=== PATIENT | male | born 1955 | race Caucasian/White ===

== ENCOUNTER 2020-01-22 10:17 | Observation (INO) | payer BC ==
--- OUTSIDE RECORDS SUMMARY | 2020-01-22 10:19 | XMS REPORT | Continuity of Care Document ---
:1955 Author Organization [facility] t Address [address] [place] [address] Care Team Providers Name Role Phone Unavailable Unavailable Unavailable Payers Payer Name Policy Type Policy Number Effective Date Expiration Date S ource Problems This patient has no known problems. Allergies, Adverse Reactions, Alerts Allergy Allergy Status Severity Reaction(s) Onset Inactive Treating Comm ents Source Name Type Date Date Clinician No Known DA Active U 0 [facility] Allergie 00:00: Gustafson s 00 [facility] codeine DA Active [place] 2018-0 [facility] 6-18 Clear 00:00: [facility] 00 [facility] codeine DA Active [place] 2018-0 [facility] [place] No Known DA Active U 0 [facility] [place] [facility] Medications This patient has no known medications. Procedures This patient has no known procedures. Results Test Description Test Time Test Comments Results Result Comments Source - XR KNEE 1 OR 2 V 2018-12-17 Patient Name: RT 10:53:00 ASHLEY RABGAO Unit No: [id number] EXAMS: CPT CODE: [id number] XR KNEE 1 OR 2 [place] [id number] RIGHT KNEE 2 VIEWS PORTABLE COMMENT: The patient is status post joint replacement which is articulating normally. at 1053 Reported and signed by: Colt Otero MD CC: Rohith Ospina MD Technologist: JUAN DOAN (RT.R) Transcribed D/ (9445) AhsanJCL [facility] NAME: ASHLEY RABAGO [address] [facility] PHYS: Rohith Holland MD : 1955 AGE: 63 SEX: M [place], [place] [address] LOC: NeilDSU PHONE #: [phone] EXAM DATE: 12/15/2018 STATUS: [facility] FAX #: [phone] RAD #: D/C DT PAGE 1 Signed Report Patient Name: ASHLEY RABAGO Unit No: [id number] EXAMS: CPT CODE: [id number] XR KNEE 1 OR 2 V RT [id number] <Continued> Orig Print D/T: S: 12/17/2018 (2898) [facility] NAME: ASHLEY RABAGO [address] [facility] PHYS: Rohith Holland MD : 1955 AGE: 63 SEX: M [place] [address] LOC: NeilDSU PHONE #: [phone] EXAM DATE: 12/15/2018 STATUS: [facility] FAX #: [phone] RAD #: D/C DT PAGE 2 Signed Report BASIC METABOLIC PANEL 2018-12-16 06:53:00 Test Item Value Reference Range Interpretation Comme nts SODIUM (test code = NA) 141 mmol/L 136-145 N POTASSIUM (test code = K) 4.6 mmol/L 3.5-5.1 N CHLORIDE (test code = CL) 108.0 mmol/L 98-107 H CARBON DIOXIDE (test code = 22.8 mmol/L 21-32 N CO2) GLUCOSE (test code = GLU) 142 mg/dL 70-110 H BLOOD UREA NITROGEN (test code 18 mg/dL 7-18 N = BUN) GLOMERULAR FILTRATION RATE 92.6 >60 U nit of measure: (test code = GFR) mL/min/1.7 3 [id number] Range:Healthy A dults >90 mL/min/1.73 m2 For Chronic Kidney Disease: Stage II Mi ld Decrease in GFR 60-9 0 Stage III Moderate Decrease in GFR 30-59 Stage IV Severe Decrease in GFR 15-29 Stage V Kidney Failure <15 CREATININE (test code = CREAT) 0.84 mg/dL 0.55-1.30 N CALCIUM (test code = CA) 8.4 mg/dL 8.2-10.1 N HGB [id number] 06:20:00 Test Item Value Reference Range Interpretation Comments HEMOGLOBIN (test code = HGB) 11.5 g/dL 12-16 L HEMATOCRIT (test code = HCT) 35.4 % 37-47 L ISTAT-6+2018-12-15 09:17:00 Test Item Value Reference Range Interpretation Comments ISTAT-HEMOGLOBIN (test code = HBP) 15.0 g/dL 12-16 N ISTAT-HEMATOCRIT (test code = 44 % 38-51 N HCTP) ISTAT-SODIUM (test code = NAP) 142 mmol/L 138-146 N ISTAT-POTASSIUM (test code = KP) 4.4 mmol/L 3.5-4.9 N ISTAT-CHLORIDE (test code = CLP) 108 mmol/L 98-109 N ISTAT-GLUCOSE (test code = GLUP) 99 mg/dL 70-105 N ISTAT-BUN (test code = BUN-P) 14 mg/dL 8-26 N - XR KNEE 1 OR 2 V [id number] 14:14:00 Patient Name: ASHLEY RABAGO Unit No: [id number] EXAMS: CPT CODE: [id number] XR KNEE 1 OR 2 [place] [id number] AP AND LATERAL VIEW OF THE LEFT KNEE COMMENT: P atient is status post total left knee arthroplasty. The prosthesis appears to be in good position. No evidence of periprosthetic fracture. at 1414 Reported and signed by: Nate Bradshaw MD CC: Rohith Ospina MD Technologist: JUAN DOAN (RT.R) Transcribed D/ (1414) [email or web address] [facility] NAME: ASHLEY RABAGO [address] PHYS: Rohith Holland MD : 1955 AGE: 63 SEX: M [place], [place] [address] LOC: YCharleneDSU PHONE #: [phone] EXAM DATE: 09/29/2018 STATUS: [facility] FAX #: [phone] RAD #: D/C DT PAGE 1 Signed Report Patient Name: ASHLEY RABAGO Unit No: [id number] EXAMS: CPT CODE: [id number] XR KNEE 1 [place] 2 [place] [id number] <Continued> Orig Print D/T: S: 09/30/2018 (1417) [facility] NAME: ASHLEY RABAGO [address] [facility] PHYS: Rohith Holland MD : 1955 AGE: 63 SEX: [place] [id number] LOC: Neil[facility]U PHONE #: [phone] EXAM DATE: 09/29/2018 STATUS: [facility] FAX #: [phone] RAD #: D/C DT PAGE 2 Signed ReportHGB [id number] 05:51:00 Test Item Value Reference Range Interpretation Comments HEMOGLOBIN (test code = HGB) 12.0 g/dL 12-16 N HEMATOCRIT (test code = HCT) 36.8 % 37-47 L COMPREHENSIVE METABOLIC [id number] 11:25:00 Test Item Value Reference Range Interpretation Comments SODIUM (test code = 141 mmol/L 136-145 N NA) POTASSIUM (test code = 4.2 mmol/L 3.5-5.1 N K) CHLORIDE (test code = 107.0 mmol/L 98-107 N CL) CARBON DIOXIDE (test 24.1 mmol/L 21-32 N code = CO2) GLUCOSE (test code = 96 mg/dL 70-110 N GLU) BLOOD UREA NITROGEN 18 mg/dL 7-18 N (test code = BUN) GLOMERULAR FILTRATION 76.6 >60 Unit o f measure: RATE (test code = GFR) mL/mi n/1.73 [id number] Range:Healthy Adults >90 mL/min/1.73 m2 For Chronic Kidney Disease: St age II Mild Decrease in GFR 60-90 St age III Moderate Decrease in GFR 30-59 Stage IV Severe Decre ase in GFR 15- 29 Stage V Kidney Failure <15 CREATININE (test code 0.99 mg/dL 0.55-1.30 N = CREAT) TOTAL PROTEIN (test 6.4 g/dL 6.4-8.2 N code = PROT) ALBUMIN (test code = 3.5 g/dL 3.4-5.0 N ALB) GLOBULIN (test code = 2.9 g/dL 2.2-4.2 N GLOB) ALBUMIN/GLOBULIN RATIO 1.2 0.7-2.0 N (test code = A/G) CALCIUM (test code = 8.7 mg/dL 8.2-10.1 N CA) BILIRUBIN TOTAL (test 0.38 mg/dL 0.2-1.00 N code = BILT) SGOT/AST (test code = 15.0 U/L 15-37 N AST) SGPT/ALT (test code = 23.0 U/L 12-78 N Please note new ALT) normal range. ALKALINE PHOSPHATASE 78 U/L 46-116 N TOTAL (test code = ALKP) CBC W/AUTO [id number] 10:44:00 Test Item Value Reference Range Interpretation Comments WHITE BLOOD CELL (test code = WBC) 8.6 K/mm3 5.7-10.5 N RED BLOOD CELL (test code = RBC) 4.41 M/mm3 4.2-5.4 N HEMOGLOBIN (test code = HGB) 14.1 g/dL 12-16 N HEMATOCRIT (test code = HCT) 42.8 % 37-47 N MEAN CELL VOLUME (test code = MCV) 97 fL 80-98 N MEAN CELL HGB (test code = MCH) 32.0 pg 27-34 N MEAN CELL HGB CONCENTRATION (test 32.9 g/dL 30.8-34.1 N code = MCHC) RED CELL DISTRIBUTION WIDTH (test 14.1 % 11-16 N code = RDW) PLT (test code = PLT) 282 K/mm3 130-400 N MEAN PLATELET VOLUME (test code = 11.5 fL 8.9-12.1 N MPV) NEUTROPHIL % (test code = NT%) 67.9 % 45-70 N LYMPHOCYTE % (test code = LY%) 19.4 % 20-40 L MONOCYTE % (test code = MO%) 9.0 % 3-10 N EOSINOPHIL % (test code = EO%) 2.7 % 1-5 N BASOPHIL % (test code = BA%) 0.8 % 0.0-1.1 N NEUTROPHIL # (test code = NT#) 5.83 K/mm3 2.00-7.50 N LYMPHOCYTE # (test code = LY#) 1.67 K/mm3 1.50-4.00 N MONOCYTE # (test code = MO#) 0.77 K/mm3 0.2-0.8 N EOSINOPHIL # (test code = EO#) 0.23 K/mm3 0.04-0.4 N BASOPHIL # (test code = BA#) 0.07 K/mm3 0.02-0.10 N MANUAL DIFF REQUIRED (test code = NO MANUAL DIFF MDIFF) NUCLEATED RED BLOOD CELL (test 0 % 0-0 N code = NRBC)
[2020-01-22 11:33] LABS: Absolute Lymphocytes (CBC) 2.6 K/uL (0.7-4.9); Basophils % 0.3 % (0-1.3); Hematocrit 45.9 % (39.6-49.0); Lymphocytes % 14.1 % (15.3-44.8); MPV 8.5 fL (7.6-11.3); RBC Red Blood Cell Count 4.75 M/uL (4.33-5.43)
[2020-01-22 11:51] LABS: ALT/SGPT 25 U/L (12-78); AST/SGOT 9 U/L (15-37); Albumin 3.1 g/dL (3.4-5.0); Alkaline Phosphatase 78 U/L (45-117); BUN Blood Urea Nitrogen 14 mg/dL (7-18); Bicarbonate 26 mmol/L (21-32); Bilirubin Direct 0.2 mg/dL (0-0.2); Bilirubin Total 0.9 mg/dL (0.2-1.0); Glucose Level 88 mg/dL (74-106); Lipase 487 U/L (73-393); Magnesium 2.3 mg/dL (1.8-2.4); NT PRO-BNP 190 pg/mL (<125); Potassium 3.9 mmol/L (3.5-5.1); Protein, Total 6.9 g/dL (6.4-8.2); Sodium Level 138 mmol/L (136-145); Troponin (Emerg Dept Use Only) < 0.02 ng/mL (0.0-0.045)
[2020-01-22] MEDS ORDERED: FAMOTIDINE 20 MG/2 ML VIAL IV ONE (12:15)
[2020-01-22] MEDS ORDERED: NA CHLORIDE 0.9% 1,000 ML ONE (12:15)
[2020-01-22] MEDS ORDERED: ONDANSETRON 4 MG/2 ML VIAL ONE (12:15)
[2020-01-22] MEDS ORDERED: PIPER/TAZO/NS 3.375gm 3.375 GM/100 ML BAG ONE ×2 (12:16→19:43)
--- NOTE | 2020-01-22 13:50 | RAD REPORT ---
EXAM DESCRIPTION: CT - Chest Abdomen Pelvis W Cont - 01/22/2020 1:33 pm CLINICAL HISTORY: Chest and abdominal pain. Shortness of breath COMPARISON: None TECHNIQUE: Computed axial tomography of the chest, abdomen and pelvis was obtained. A total of 175 c c Isovue-300 was administered intravenously. Due to technical factors the patient had to return a sec ond time for additional imaging. Oral contrast was not given limiting evaluation bowel All CT scans are performed using dose optimization technique as appropriate and may include automated exposure control or mA/KV adjustment according to patient size. FINDINGS: A pulmonary embolus is not seen. A bleb is present within the left lung. No lung consolida tion No mediastinal or hilar lymphadenopathy A pleural effusion is not seen. A pericardial effusion is not noted. Small area sclerosis anterior left fourth rib Gallstones. No bowel bladder wall thickening Mild fatty infiltration liver. Small lipoma third portion duodenum The Spleen, pancreas, adrenals and kidneys appear unremarkable. There is no evidence of diverticulitis. Small bilateral inguinal hernias contain fat. Postsurgical changes involve spine IMPRESSION: No evidence of of a pulmonary embolism Cholelithiasis without evidence cholecystitis Small area sclerosis anterior left fourth rib often is insignificant. A blastic metastasis can also r esult in this appearance should be correlated clinically.
--- NOTE | 2020-01-22 13:51 | RAD REPORT ---
EXAM DESCRIPTION: [facility] 12[facility]11 pm CLINICAL HISTORY: Shortness of breath COMPARISON: none FINDINGS: A small nodular density overlying the fourth anterior left rib represents sclerosis The lungs appear clear of acute infiltrate. The heart is normal size
[2020-01-22 14:30] LABS: Urine Blood NEGATIVE (NEG); Urine Glucose NEGATIVE (NEG); Urine Protein NEGATIVE (NEG); Urine Specific Gravity 1.015 (1.005-1.030)
--- NOTE | 2020-01-22 14:43 | ER ---
Nurse's Notes [facility] Name: Girma Vernon Age: 65 yrs Sex: Male : 1955 Arrival Date: 01/22/2020 Time: 10:21 Bed 20 Private MD: Alfredo Fuchs C Diagnosis: Abdominal tenderness;Elevated white blood cell count;Cholelithiasis Presentation: 01/21 10:27 Chief complaint: Patient states: Abdominal pain and bloating for 3 days. + nausea at ll1 times. No fever. Back surgery for spinal stenosis . Coronavirus screen: Client denies travel out of the [place] in the last 14 days. nausea. Ebola Screen: Patient denies travel to an Ebola-affected area in the 21 days before illness onset. Initial Sepsis Screen: Does the patient meet any 2 criteria? HR > 90 bpm. No. Patient's initial sepsis screen is negative. Does the patient have a suspected source of infection? Yes: Acute abdominal pain. Risk Assessment: Do you want to hurt yourself or someone else? Patient reports no desire to harm self or others. Onset of symptoms was January 20, 2020. 10:27 Method Of Arrival: Ambulatory ll1 10:27 Acuity: [place] 3 ll1 Historical: - Allergies: 10:30 No Known Allergies; ll1 - PSHx: 10:30 back sx; biateral knee pain; ll1 - Immunization history:: Flu vaccine is not up to date. - Social history:: Smoking status: Patient reports the use of cigarette tobacco products, smokes one-half pack cigarettes per day. - Family history:: not pertinent. Screenin:00 Abuse screen: Denies threats or abuse. Denies injuries from another. Nutritional ss screening: No deficits noted. Tuberculosis screening: Never had TB. Fall Risk None identified. Assessment: 11:00 General: Appears in no apparent distress. comfortable, Behavior is calm, cooperative. ss Pain: Complains of pain in left upper quadrant and right upper quadrant and epigastric area Pain currently is 8 out of 10 on a pain scale. Quality of pain is described as aching, Pain began 2-3 days ago. Is intermittent. Neuro: Level of Consciousness is awake, alert, obeys commands, Oriented to person, place, time, situation, Speech is normal. Neuro: Level of Consciousness is awake, alert, obeys commands, Oriented to person, place, time, situation. Cardiovascular: Capillary refill < 3 seconds is brisk in bilateral fingers. Respiratory: Airway is patent Respiratory effort is even, unlabored, Respiratory pattern is regular, symmetrical. Respiratory: Airway is patent Respiratory effort is even, unlabored, Respiratory pattern is regular, symmetrical. GI: Bowel sounds present X 4 quads. Abd is soft and non tender X 4 quads. GI: Reports intermittent nausea x 2- 3days. : No signs and/or symptoms were reported regarding the genitourinary system. Denies burning with urination. EENT: Oral mucosa is moist. Derm: Skin is intact, is healthy with good turgor, Skin is dry, Skin is pink, warm \T\ dry. normal. Musculoskeletal: Circulation, motion, and sensation intact. Range of motion: intact in all extremities, Swelling absent. 12:27 Reassessment: Patient in CT at this time. ss 13:00 Reassessment: Patient appears in no apparent distress at this time. No changes from ss previously documented assessment. Patient and/or family updated on plan of care and expected duration. Pain level reassessed. Patient denies pain at this time. 14:19 Reassessment: Patient appears in no apparent distress at this time. Patient and/or ss family updated on plan of care and expected duration. Pain level reassessed. Patient is alert, oriented x 3, equal unlabored respirations, skin warm/dry/pink. Patient denies pain at this time. Patient states feeling better. Patient states symptoms have improved. 15:14 Reassessment: Patient appears in no apparent distress at this time. Patient aware of ss admission for further evaluation and treatment. Awaiting hospitalist to assess patient and place orders prior to receiving room assignment. 15:26 Reassessment: Report given to Verónica. Vital Signs: 10:27 BP 117 / 87; Pulse 94; Resp 18; Temp 97.9; Pulse Ox 98% ; Weight 124.74 kg; Height 6 ll1 ft. 1 in. (185.42 cm); Pain 8/10; 14:19 BP 136 / 79; Pulse 86; Resp 16; Pulse Ox 100% ; Pain 0/10; ss 10:27 Body Mass Index 36.28 (124.74 kg, 185.42 cm) ll1 ED Course: 10:21 Patient arrived in ED. mr 10:22 Alfredo Fuchs MD is Private Physician. mr 10:29 Triage completed. ll1 10:30 Arm band placed on Patient placed in an exam room, on a stretcher. ll1 10:31 Manjeet Cordero MD is Attending Physician. angeline 11:15 Inserted saline lock: 20 gauge in right antecubital area, using aseptic technique. ll1 Blood collected. 12:00 Estela Casas, VANESSA is Primary Nurse. ss 12:00 Patient has correct armband on for positive identification. Bed in low position. Call ss light in reach. 12:11 XRAY Chest (1 view) In Process Unspecified. EDMS 12:29 CT Chest, Abdomen, Pelvis - W/Contrast: ro pe In Process Unspecified. EDMS 14:42 Alfredo Fuchs MD is Hospitalizing Provider. angeline 14:58 Ultrasound completed. Patient tolerated well. Notified ED Physician pasha. sg3 15:15 No provider procedures requiring assistance completed. Patient admitted, IV remains in ss place. Administered Medications: 12:11 Drug: Pepcid 20 mg Route: IVP; Site: right antecubital; hb 12:47 Follow up: Response: No adverse reaction; Marked relief of symptoms; Pain is decreased ss 12:11 Drug: Zofran (Ondansetron) 4 mg Route: IVP; Site: right antecubital; hb 12:46 Follow up: Response: No adverse reaction ss 12:46 Drug: Zosyn 3.375 grams Route: IVPB; Infused Over: 60 mins; Site: right antecubital; ss 13:45 Follow up: IV Status: Completed infusion ss 12:47 Drug: NS 0.9% 500 ml Route: IV; Rate: bolus; Site: right antecubital; ss 13:40 Follow up: IV Status: Completed infusion; IV Intake: 500ml ss 13:54 Drug: NS 0.9% 1000 ml Route: IV; Rate: 125 ml/hr; Site: right antecubital; ss 15:48 Follow up: IV Status: Infusion continued upon admission ss Intake: 13:40 IV: 500ml; Total: 500ml. ss Outcome: 14:43 Decision to Hospitalize by Provider. angeline 15:15 Condition: improved ss 15:15 Instructed on the need for admit. 15:47 Admitted to Med/surg accompanied by tech, family with patient, via wheelchair, with chart, Report called to VANESSA Sanches 15:48 Patient left the ED. Signatures: Dispatcher [employer] EDManjeet Montes MD MD cha Rivera, Estela Eden, RN RN Jennifer William RN RN Alysa Lee 3 Ananya Lim RN RN ll1
--- NOTE | 2020-01-22 14:43 | EDPHYS ---
Physician Documentation [facility] Name: Girma Vernon Age: 65 yrs Sex: Male : 1955 Arrival Date: 01/22/2020 Time: 10:21 Bed 20 Private MD: Alfredo Fuchs C ED Physician Manjeet Cordero HPI: 01/21 11:01 This 65 yrs old Male presents to ER via Ambulatory with complaints of angeline Abdominal Pain, Abdominal Swelling. 11:01 The patient has shortness of breath with light activity. Onset: The symptoms/episode angeline began/occurred 3 day(s) ago. Duration: The symptoms are continuous, and are steadily getting worse. The patient's shortness of breath has no apparent modifying factors. The patient presents with abdominal pain in the upper abdomen, in the lower abdomen, abdominal distention in the upper abdomen, in the lower abdomen. Onset: The symptoms/episode began/occurred 3 day(s) ago. Associated signs and symptoms: The patient has no apparent associated signs or symptoms. Severity of symptoms: At their worst the symptoms were moderate in the emergency department the symptoms are unchanged. The symptoms do not radiate. Associated signs and symptoms: none. Historical: - Allergies: 10:30 No Known Allergies; ll1 - PSHx: 10:30 back sx; biateral knee pain; ll1 - Immunization history:: Flu vaccine is not up to date. - Social history:: Smoking status: Patient reports the use of cigarette tobacco products, smokes one-half pack cigarettes per day. - Family history:: not pertinent. ROS: 11:01 Constitutional: Negative for fever, chills, and weight loss, Eyes: Negative for injury, angeline pain, redness, and discharge, ENT: Negative for injury, pain, and discharge, Neck: Negative for injury, pain, and swelling, Cardiovascular: Negative for chest pain, palpitations, and edema, Respiratory: Negative for shortness of breath, cough, wheezing, and pleuritic chest pain, Back: Negative for injury and pain, : Negative for injury, bleeding, discharge, and swelling, MS/Extremity: Negative for injury and deformity, Skin: Negative for injury, rash, and discoloration, Neuro: Negative for headache, weakness, numbness, tingling, and seizure, Psych: Negative for depression, anxiety, suicide ideation, homicidal ideation, and hallucinations, Allergy/Immunology: Negative for hives, rash, and allergies, Endocrine: Negative for neck swelling, polydipsia, polyuria, polyphagia, and marked weight changes, Hematologic/Lymphatic: Negative for swollen nodes, abnormal bleeding, and unusual bruising. 11: Abdomen/GI: Positive for abdominal pain, abdominal distension. 11: MS/extremity: Negative for pain. Exam: 11: Constitutional: This is a well developed, well nourished patient who is awake, alert, angeline and in no acute distress. Head/Face: Normocephalic, atraumatic. Eyes: Pupils equal round and reactive to light, extra-ocular motions intact. Lids and lashes normal. Conjunctiva and sclera are non-icteric and not injected. Cornea within normal limits. Periorbital areas with no swelling, redness, or edema. ENT: Nares patent. No nasal discharge, no septal abnormalities noted. Tympanic membranes are normal and external auditory canals are clear. Oropharynx with no redness, swelling, or masses, exudates, or evidence of obstruction, uvula midline. Mucous membranes moist. Neck: Trachea midline, no thyromegaly or masses palpated, and no cervical lymphadenopathy. Supple, full range of motion without nuchal rigidity, or vertebral point tenderness. No Meningismus. Chest/axilla: Normal chest wall appearance and motion. Nontender with no deformity. No lesions are appreciated. Cardiovascular: Regular rate and rhythm with a normal S1 and S2. No gallops, murmurs, or rubs. Normal PMI, no JVD. No pulse deficits. Respiratory: Lungs have equal breath sounds bilaterally, clear to auscultation and percussion. No rales, rhonchi or wheezes noted. No increased work of breathing, no retractions or nasal flaring. Back: No spinal tenderness. No costovertebral tenderness. Full range of motion. Male : Normal genitalia with no discharge or lesions. Skin: Warm, dry with normal turgor. Normal color with no rashes, no lesions, and no evidence of cellulitis. MS/ Extremity: Pulses equal, no cyanosis. Neurovascular intact. Full, normal range of motion. Neuro: Awake and alert, GCS 15, oriented to person, place, time, and situation. Cranial nerves II-XII grossly intact. Motor strength 5/5 in all extremities. Sensory grossly intact. Cerebellar exam normal. Normal gait. Psych: Awake, alert, with orientation to person, place and time. Behavior, mood, and affect are within normal limits. 11:01 Abdomen/GI: Inspection: distension, Bowel sounds: normal, Palpation: mild abdominal tenderness, in the epigastric area, right upper quadrant and left upper quadrant, Liver: no appreciated palpable abnormalities, Hernia: not appreciated. Vital Signs: 10:27 BP 117 / 87; Pulse 94; Resp 18; Temp 97.9; Pulse Ox 98% ; Weight 124.74 kg; Height 6 ll1 ft. 1 in. (185.42 cm); Pain 8/10; 14:19 BP 136 / 79; Pulse 86; Resp 16; Pulse Ox 100% ; Pain 0/10; ss 10:27 Body Mass Index 36.28 (124.74 kg, 185.42 cm) ll1 MDM: 10:31 Patient medically screened. angeline 11:05 Differential diagnosis: Bronchitis pneumonia, Pulmonary Embolism appendicitis, bowel angeline obstruction, cholecystitis, Cholelithiasis, diverticulitis, gastroesophageal reflux disease, Hepatitis, Mesenteric ischemia or infarction, non-specific abd pain, pancreatitis, Peptic Ulcer Disease. Antibiotic administration: Not indicated. The patient's Wells Deep Vein Thrombosis Score was calculated as follows: Total Score: 0-2 Pts- Low Risk. The patient's Wells Deep Vein Thrombosis Score was calculated as follows: Imm/Surg in last 4 wks (1.5 Pts) Total Score:. The patient's pulmonary embolism risk score was calculated as follows: patient has experienced immobilization or surgery in the last four weeks (1.5 Pts) Total Score: 0-2 points. This patient was found to be at low risk for a pulmonary embolism by using the Well's assessment criteria. Immunization status: Influenza vaccine: Data reviewed: vital signs, nurses notes, lab test result(s), EKG, radiologic studies, CT scan, plain films. Data interpreted: quality assurance monitor final: rate is 94 beats/min, rhythm is regular, Pulse oximetry: on room air is 98 %. Test interpretation: by ED physician or midlevel provider: ECG, plain radiologic studies. 01/21 11: Order name: Basic Metabolic Panel; Complete Time: 12:18 [facility] 01/21 11: Order name: CBC with Diff; Complete Time: 11:38 angeline 01/21 11:01 Order name: LFT's; Complete Time: 12:18 [facility] 01/21 11:01 Order name: Magnesium; Complete Time: 12:18 [facility] 01/21 11:01 Order name: NT PRO-BNP; Complete Time: 12:18 [facility] 01/21 11:01 Order name: Troponin (emerg Dept Use Only); Complete Time: 12:18 [facility] 01/21 11:01 Order name: XRAY Chest (1 view); Complete Time: 14:10 [facility] 01/21 11:01 Order name: CT Chest, Abdomen, Pelvis - W/Contrast: ro pe; Complete Time: 14:10 [facility] 01/21 11:01 Order name: Lipase; Complete Time: 12:18 [facility] 01/21 14:11 Order name: Urine Dipstick--Ancillary (enter results) 01/21 14:12 Order name: US Abdomen Limited [facility] 01/21 11:01 Order name: EKG; Complete Time: 11:02 [facility] 01/21 11:01 Order name: Cardiac monitoring; Complete Time: 12:35 [facility] 01/21 11:01 Order name: EKG - Nurse/Tech; Complete Time: 12:48 [facility] 01/21 11:01 Order name: IV Saline Lock; Complete Time: 12:35 [facility] 01/21 11:01 Order name: Labs collected and sent; Complete Time: 12:35 [facility] 01/21 11:01 Order name: O2 Per Protocol; Complete Time: 12:35 [facility] 01/21 11:01 Order name: O2 Sat Monitoring; Complete Time: 12:35 [facility] 01/21 11:01 Order name: Urine Dipstick-Ancillary (obtain specimen); Complete Time: 13:54 [facility] 01/21 14:49 Order name: CONS Physician Consult EDMS Administered Medications: 12:11 Drug: Pepcid 20 mg Route: IVP; Site: right antecubital; hb 12:47 Follow up: Response: No adverse reaction; Marked relief of symptoms; Pain is decreased ss 12:11 Drug: Zofran (Ondansetron) 4 mg Route: IVP; Site: right antecubital; hb 12:46 Follow up: Response: No adverse reaction ss 12:46 Drug: Zosyn 3.375 grams Route: IVPB; Infused Over: 60 mins; Site: right antecubital; ss 13:45 Follow up: IV Status: Completed infusion ss 12:47 Drug: NS 0.9% 500 ml Route: IV; Rate: bolus; Site: right antecubital; ss 13:40 Follow up: IV Status: Completed infusion; IV Intake: 500ml ss 13:54 Drug: NS 0.9% 1000 ml Route: IV; Rate: 125 ml/hr; Site: right antecubital; ss 15:48 Follow up: IV Status: Infusion continued upon admission ss Disposition: 01/22/20 14:43 Hospitalization ordered by Alfredo Fuchs for Observation. Preliminary diagnosis are Abdominal tenderness, Elevated white blood cell count, Cholelithiasis. - Bed requested for Telemetry/MedSurg (observation). - Status is Observation. ss - Condition is Stable. - Problem is new. - Symptoms have improved. Signatures: Dispatcher [employer] EDMS Manjeet Cordero MD MD cha Smirch, Shelby, RN RN Jennifer Willis RN RN Gayathri Wise Lynsay RN RN ll1 Corrections: (The following items were deleted from the chart) 15: 14:43 Hospitalization Ordered by A Shila ESPINOZA for Observation. Preliminary diagnosis is eb Abdominal tenderness; Elevated white blood cell count; Cholelithiasis. Bed requested for Telemetry/MedSurg (observation). Status is Observation. Condition is Stable. Problem is new. Symptoms have improved. [facility] 15:10 15:09 01/22/2020 14:43 Hospitalization Ordered by A Shila ESPINOZA for Observation. eb Preliminary diagnosis is Abdominal tenderness; Elevated white blood cell count; Cholelithiasis. Bed requested for Telemetry/MedSurg (observation). Status is Observation. Condition is Stable. Problem is new. Symptoms have improved. eb 15:48 15:10 01/22/2020 14:43 Hospitalization Ordered by A Shila ESPINOZA for Observation. ss Preliminary diagnosis is Abdominal tenderness; Elevated white blood cell count; Cholelithiasis. Bed requested for Telemetry/MedSurg (observation). Status is Observation. Condition is Stable. Problem is new. Symptoms have improved. eb
[2020-01-22] MEDS ORDERED: ACETAMINOPHEN 325 MG TABLET PO PRN (15:57)
[2020-01-22] MEDS ORDERED: MORPHINE 4 MG/ML SYR IV PRN (15:57)
[2020-01-22] MEDS ORDERED: ONDANSETRON 4 MG/2 ML VIAL IV PRN (15:57)
[2020-01-22 15:58] VITALS: BMI 36.3
--- NOTE | 2020-01-22 16:00 | RAD REPORT ---
EXAM DESCRIPTION: US - Abdomen Exam Limited - 01/22/2020 2:55 pm CLINICAL HISTORY: Abdominal pain. COMPARISON: None. FINDINGS: Cholelithiasis. The gallbladder wall is not thickened. The biliary tree is normal caliber. IMPRESSION: Cholelithiasis without evidence cholecystitis
[2020-01-22] MEDS: D5 0.45 NS 1,000 ML IV SCH ×2 (16:19→21:44)
[2020-01-22] MEDS ORDERED: PIPER/TAZO/NS 3.375gm 3.375 GM/100 ML BAG IVPB SCH (18:00)
[2020-01-22] MEDS: PIPER/TAZO/NS 3.375gm 3.375 GM/100 ML BAG IV SCH (19:45)
[2020-01-22] MEDS: FAMOTIDINE 20 MG/2 ML VIAL IV SCH (19:45)
[2020-01-23] MEDS ORDERED: PIPER/TAZO/NS 3.375gm 3.375 GM/100 ML BAG ONE (03:05)
[2020-01-23] MEDS: D5 0.45 NS 1,000 ML IV SCH (04:53)
[2020-01-23] MEDS: PIPER/TAZO/NS 3.375gm 3.375 GM/100 ML BAG IV SCH (04:53)
[2020-01-23 05:56] LABS: Absolute Lymphocytes (CBC) 2.8 K/uL (0.7-4.9); Basophils % 0.5 % (0-1.3); Hematocrit 43.7 % (39.6-49.0); Lymphocytes % 16.6 % (15.3-44.8); MPV 8.5 fL (7.6-11.3)
[2020-01-23 06:20] LABS: Albumin 2.5 g/dL (3.4-5.0); Bilirubin Direct 0.2 mg/dL (0-0.2); Bilirubin Total 0.9 mg/dL (0.2-1.0); Potassium 4.5 mmol/L (3.5-5.1); Protein, Total 6.6 g/dL (6.4-8.2)
[2020-01-23] MEDS: FAMOTIDINE 20 MG/2 ML VIAL IV SCH (07:48)
[2020-01-23 07:54] VITALS: O2SAT 94
[2020-01-23 09:42] VITALS: BP 130/79; TEMP 96.9
--- NOTE | 2020-01-23 09:55 | P.PN ---
Subjective Date of Service: 01/23/20 Subjective: Improving (patient tolerating diet, ambulatory, pain free) Physical Examination - Vital Signs Temperature: 96.9 F Blood Pressure: 130/79 Pulse: 60 Respirations: 16 Pulse Ox (%): 96 - Physical Exam General: Alert, In no apparent distress, Cooperative Respiratory: Clear to auscultation bilaterally Gastrointestinal: Soft and benign, Non-distended, No ascites, No tenderness, No masses, No rebound, No guarding - Studies Laboratory Data (last 24 hrs) 01/22/20 11:20: WBC 18.1 H, Hgb 15.3, Hct 45.9, Plt Count 293 01/22/20 11:20: Sodium 138, Potassium 3.9, BUN 14, Creatinine 0.83, Glucose 88, Magnesium 2.3, Total Bilirubin 0.9, AST 9 L, ALT 25, Alkaline Phosphatase 78, Lipase 487 H Assessment And Plan - Current Problems (Diagnosis) (1) Drug-induced pancreatitis Current Visit: Yes Status: Acute Plan: Stop steroids if possible - hydration - plan per Dr. Fuchs - no need for surgical intervention
[2020-01-23] MEDS ORDERED: INFLUENZA VACCINE (for 3y+) 0.5 ML DOSE IMVAC ONE (10:00)
--- NOTE | 2020-01-23 11:29 | CON ---
Date of Consultation: 01/21/2020 Brief History Of Present Illness: The patient is a 65-year-old male, who comes to the hospital with complaints of abdominal pain, beginning approximately 3 days ago. He had recently had back surgery t his month and had been told by his back surgeon to increase the dose of steroids. He had increased h is dose of steroids significantly, but cannot recall the exact dose, but took a significantly higher dose. Shortly thereafter, he developed abdominal pain. He was brought to the ER and had signs and s ymptoms of midepigastric with localized abdominal pain without radiation. No nausea. No vomiting. No change in bowel or bladder habits. No sick contacts. No recent travel. No new food exposures. Past Medical History: Significant for back surgery, bilateral knee pain. Social History: He denies alcohol. He smokes half pack cigarettes per day. Denies recreational efren g use. His pain is somewhat better after admission. He has never had similar episodes before or in the past . Medications: He cannot recall specific medications. Allergies: NO KNOWN DRUG ALLERGIES. Review of Systems: Ten-point review of systems other than HPI, denies. Physical Examination: Vital Signs: At the time of my examination; his vital signs were a heart rate of 63, blood pressure 129/75, SpO2 97% on room air, temperature 97.9, respiratory rate 18. General: He is awake, alert, oriented. Psychiatric: Appropriate, conversive. HEENT: Normocephalic. Sclerae icteric. Mucous membranes are moist. Oropharynx is clear. Neck: Supple. No JVD. Chest: Normal expansion and excursion. Cardiovascular: Regular rate and rhythm. Pulmonary: Clear to auscultation bilaterally. Abdomen: Soft with mild midepigastric tenderness to palpation. Negative Kelley sign. No psoas sign . No rebound. No guarding. No focal peritonitis Pelvis: Stable. Extremities: No clubbing, cyanosis, or edema. Skin: Warm and dry. Laboratory Data: Reveals a white blood cell count of 18.1, hemoglobin is 15.3, hematocrit of 45.9, p latelet count was 293, neutrophils are 75%. His sodium is 138, potassium 3.9, chloride 106, carbon d ioxide is 26, BUN 14, creatinine 0.8. His glucose was 88. His total bilirubin 0.9, direct component 0.2, AST 9, ALT 25, alkaline phosphatase 78. His lipase was 487. His UA essentially negative. He had imaging performed, which included a CT scan of the abdomen pelvis, officially read as no evidence of pulmonary embolism, cholelithiasis without evidence of cholecystitis. Smaller sclerosis of the a nterior fourth rib is often insignificant. Blastic metastasis can also occurring, this apparent shou ld be clinically correlated. Assessment And Plan: This is a 65-year-old male, who comes in with signs and symptoms of pancreatiti s, likely drug-induced pancreatitis due to the steroid usage and increasing dose of steroids and a mi ld case of acute pancreatitis, now significantly improved symptomatically. 1.IV fluids. 2.N.p.o. status. 3.Serial abdominal exams. 4.Continue medical management per Dr. Fuchs. Thank you for this interesting consult. SISSY Voice ID: [id number] Report ID: [id number]
--- NOTE | 2020-01-23 12:37 | SS ---
Date of Discharge: 01/23/2020 Chief Complaint: Abdominal pain. History Of Present Illness: This is a 65-year-old very pleasant male patient who had lower back surgery done by Dr. Alex about 2 weeks ago. After his surgery, he was prescribed some narcotic pain medication that he did not tolerate that well, so Dr. Alex stopped that and he prescribed him some corticosteroid medication that the patient reports that he finished taking it prior to this hospital admission. He came into hospital emergency room with complaints of some vague abdominal discomfort in the periumbilical area starting of this week. He had some nausea, but no vomiting. No fever. No chills. No constipation or diarrhea. No blood in stool. No urinary complaints. After he came into emergency room, his workup was unremarkable except presence of gallstone with no evidence of cholecystitis. The patient was admitted to the hospital for further evaluation and management of this problem. His white count was elevated. This morning when I saw him, he was feeling better. Allergies: NO KNOWN ALLERGIES. Medications: He does not take any medications at home. Review of Systems: GI: As mentioned above. All other systems reviewed and negative. Past Medical History: Significant for hyperlipidemia and lumbar spinal stenosis and lumbar spondylosis. Past Surgical History: Tonsillectomy, bilateral knee surgery, shoulder surgery, and recent lower back surgery. Family History: Father , had colon cancer and prostate cancer. Mother , had congestive heart failure. Brother with hypertension, diabetes, and coronary artery disease. Social History: Positive for smoking. Use of alcohol negative. Physical Examination: VITAL SIGNS: Height 6 feet 1 inch, weight 275 pounds, temperature 97.1, pulse 61, respiratory rate 18, blood pressure 131/80, oxygen saturation 96%. General: Awake, alert, oriented, not in distress. HEENT: Head atraumatic, normocephalic. Conjunctivae nonerythematous. Sclerae white. Mouth, no thrush or edema noted. Ears/Nose, no mass, lesion, discharge noted. Neck: Supple. No JVD, lymph nodes, bruit, thyromegaly noted. Lungs: Bilateral good equal air entry. Clear to auscultation. No rhonchi. No rales. Heart: Normal heart sounds, no murmur or gallop. Abdomen: Soft, bowel sounds normal. No guarding, rigidity, tenderness, mass, hepatosplenomegaly, distention, or bruit noted. Extremities: No leg edema. No calf tenderness. Skin: No rash, ulcer, cellulitis. Lymphatics: No lymph node enlargement in neck, supraclavicular, infraclavicular region. Neuro: No focal neurological deficit. Chest: Unremarkable. External Genitalia: Deferred. Rectal: Deferred. Laboratory Data: Yesterday; white count 18.1, hemoglobin 15.3, and platelets 293. This morning; white count 16.7, hemoglobin 14.6, platelets 261. Sodium 138, potassium 3.9, chloride 106, bicarb 26, BUN 14, creatinine 0.83, glucose 88. Liver function tests unremarkable. Troponin less than 0.02. Lipase yesterday was 487. This morning, lipase is 480. Sodium 138, potassium 4.5, chloride 108, bicarb 25, BUN 10, creatinine 0.91, glucose 93. Liver function tests unremarkable. Urinalysis is negative. Chest x-ray; no infiltrate, small nodular density overlying the fourth anterior left rib and this represents sclerosis. No prior chest x-ray available for comparison. CAT scan of the chest, abdomen, and pelvis done in the emergency room yesterday. CAT scan of the chest was negative for pulmonary embolism. A bleb is seen in the left lung. No lung consolidation. No other acute abnormality noted in the chest. Small area of sclerosis in the left 4th rib, presence of gallstone, mild fatty infiltration of liver, small duodenum. Spleen, pancreas, adrenals, and kidneys appear unremarkable. No evidence of diverticulitis. Bilateral small inguinal hernia containing fat. Limited right upper quadrant abdominal ultrasound shows evidence of gallstones without any evidence of cholecystitis. Hospital Course: After the patient was evaluated in the ER, he was admitted to the hospital and he was on empiric antibiotics Zosyn in the emergency room for this elevated white count. After I talked to patient this morning, I learned about him taking corticosteroid medication within last 2 weeks after his lower back surgery and that could be very well the reason why his white count is elevated and I did explain all those details to him today. Clinically, there is no evidence of any infection anywhere, so the patient does not need to continue any antibiotics. His mildly elevated lipase level that we have seen could be due to very minimal pancreatitis, but once again today on clinical exam, there is absolutely no evidence of any tenderness and he is medically stable for discharge. We will start him on diet and he was advised to avoid fatty, greasy, spicy food. There is a possibility that he may have some component of gastritis also, so we will go ahead and try some proton pump inhibitor therapy like pantoprazole and I have advised him how to take that medication. I will see him in the office for followup sometime next week and we did talk about outpatient referral to utility locate technician for endoscopy, which is EGD and colonoscopy as he never had those testing done before. Plan of treatment was discussed with him. Final Diagnoses: 1. Acute pancreatitis, mild. 2. Acute gastritis. 3. Hyperlipidemia. 4. Lumbar spondylosis. Discharge Medication And Instructions: Pantoprazole 40 mg 1 tablet by mouth p.o. daily, take it 30 minutes before breakfast. Follow up at my office during week of, 01/31/2020 and the patient to call office for appointment. ROGER/JASON Voice ID: [id number] Report ID: [id number] ISABEL
--- NOTE | 2020-01-24 07:47 | EKG ---
Test Date: 2020-01-22 Test Time: 12:43:19 [employer] Charting Clerk: MARCO A MEASUREMENT RESULTS: Intervals: Rate: 71 TX: 158 QRSD: 122 QT: 412 QTc: 447 [place]: P: 47 TX: 158 QRS: -30 T: 46 INTERPRETIVE STATEMENTS: Normal sinus rhythm Left axis deviation Right bundle branch block Abnormal ECG No previous ECG available for comparison Electronically Signed On 01-24-20 07:43:22 CDT by Tommy Huizar
== END 2020-01-23 11:16 | disposition home or self-care (01) ==
LOC: ER 10:17 → ERHOLD 14:50 → 2ND 15:29
PROVIDERS: ADMIT Internal Medicine; ATTEND Internal Medicine
DX: K85.30 Drug induced acute pancreatitis without necrosis or infection (principal); K29.00 Acute gastritis without bleeding; E78.5 Hyperlipidemia, unspecified; M47.816 Spondylosis without myelopathy or radiculopathy, lumbar region; F17.210 Nicotine dependence, cigarettes, uncomplicated; R94.31 Abnormal electrocardiogram [ECG] [EKG]; Z20.828 Contact with and (suspected) exposure to other viral communicable diseases; I45.10 Unspecified right bundle-branch block
CPT/HCPCS: 96365; 96361; 93005; 85025 ×2; 80048; 36415; 83735; 80061; 80076 ×2; 81003; 84484; 83690 ×2; 80053; 83880; 71260; 74177; 71045; 90471; 76705; 96375; 99285; U0002; Q9967; Q2035; J2543 ×4; J7799 ×2; J7030; J2405; G0378 ×3

== ENCOUNTER 2023-11-21 15:55 | Inpatient (IN) | payer OTHER, MEDICARE ==
[2023-11-21] MEDS ORDERED: ACETAMINOPHEN 500 MG TAB ONE (16:18)
[2023-11-21 16:31] LABS: Absolute Basophils 0.2 K/uL (0-0.5); Absolute Eosinophils 0.1 K/uL (0-0.5); Absolute Lymphocytes (CBC) 0.7 K/uL (0.7-4.9); Absolute Monocytes 1.3 K/uL (0.1-1.3); Absolute Neutrophil 11.1 K/uL (1.8-8.0); Basophils % 1.3 % (0-1.3); Hematocrit 40.4 % (39.6-49.0); Hemoglobin 13.3 g/dL (13.6-17.9); Lymphocytes % 5.1 % (15.3-44.8); MCH 31.5 pg (27.0-35.0); MCHC 32.9 g/dL (32.0-36.0); MCV 95.8 fL (80-100); Monocytes % 9.8 % (3.3-12.3); Neutrophils % 82.8 % (41.7-73.7); Nucleated Red Blood Cells % 0.1 % (0-0); Platelets 300 thou/uL (152-406); RBC Red Blood Cell Count 4.22 M/uL (4.33-5.43); Red Cell Distribution Width 15.4 % (12.1-15.2)
--- NOTE | 2023-11-21 16:44 | RAD REPORT ---
EXAM DESCRIPTION: RAD - Chest Single View - 11/21/2023 4:36 pm CLINICAL HISTORY: FEVER Chest pain. COMPARISON: <Comparisons> FINDINGS: Portable technique limits examination quality. Moderate bilateral pulmonary opacities are present. This may represent pulmonary edema or infection. Vague nodular focus is present in the left mid lung. The heart is moderately enlarged. Cervical hardw are plate.
[2023-11-21 16:48] LABS: SARS-CoV-2 Antigen CONTROL BLUE LINE VIS/BG OK; SARS-CoV-2 Antigen Rapid Res Negative (Negative)
--- NOTE | 2023-11-21 16:50 | RAD REPORT ---
EXAM DESCRIPTION: US - Extrem Venous W Compress Marcelino - 11/21/2023 4:45 pm CLINICAL HISTORY: SWELLING Bilateral leg edema and swelling. COMPARISON: <Comparisons> TECHNIQUE: Real-time sonographic interrogation of the left and right lower extremity deep venous sys tems was performed. FINDINGS: Normal compressibility, flow augmentation, phasic flow and spontaneous flow is identified in both the left and right lower extremity deep venous systems. IMPRESSION: No sonographic evidence of left or right lower extremity deep venous thrombosis.
[2023-11-21 16:54] LABS: Albumin 3.1 g/dL (3.4-5.0); Albumin/Globulin Ratio 0.8 (1.1-1.8); Anion Gap 10.9 mEq/L (5.0-15.0); Bilirubin Total 0.5 mg/dL (0.2-1.0); Globulin 4.1 g/dL (2.3-3.5); Magnesium 2.1 mg/dL (1.6-2.4); Potassium 3.9 mEq/L (3.5-5.1); Protein, Total 7.2 g/dL (6.4-8.2)
[2023-11-21 16:57] LABS: PT Prothrombin Time 12.9 SECONDS (9.4-12.5); PTT, Activated Partial Thromb 32.5 SECONDS (24.3-36.9); Protime INR 1.16
--- NOTE | 2023-11-21 19:02 | RAD REPORT ---
EXAM DESCRIPTION: CT - CTHCSPWOC - 11/21/2023 6:51 pm CLINICAL HISTORY: Trauma, head and neck injury. weakness, fall, hit head COMPARISON: <Comparisons> TECHNIQUE: Axial 5 mm thick images of the head were obtained. Axial 2 mm thick images of the cervical spine were obtained with sagittal and coronal reconstruction images generated and reviewed. All CT scans are performed using dose optimization technique as appropriate and may include automated exposure control or mA/KV adjustment according to patient size. FINDINGS: CT HEAD WITHOUT CONTRAST: No acute hemorrhage, hydrocephalus or extra-axial collection is identified.No areas of brain edema or midline shift. The paranasal sinuses and mastoids are clear.The calvarium is intact. CT CERVICAL SPINE WITHOUT CONTRAST: No fracture or subluxation.3 mm degenerative anterolisthesis is present on C4 on C5. Hardware plate i s present anterior a spanning C5-7.No prevertebral soft tissues swelling is identified. IMPRESSION: No acute intracranial or cervical spine findings.
--- NOTE | 2023-11-21 19:04 | RAD REPORT ---
EXAM DESCRIPTION: CT - Thorax W/ Con CLINICAL HISTORY: Chest pain weakness COMPARISON: <Comparisons> FINDINGS: The lungs are clear. No pleural thickening or pleural effusion. No pneumothorax. No axillary, mediastinal or hilar adenopathy. No concerning bony finding. No gross upper abdominal finding. All CT scans are performed using dose optimization technique as appropriate and may include automated exposure control or mA/KV adjustment according to patient size. IMPRESSION: No acute process identified.
[2023-11-21 19:15] LABS: Sqamous Epithelial <5 /HPF (None Seen); Urine Bacteria <20 /HPF (<20); Urine Bilirubin NEGATIVE (Negative); Urine Blood Trace (Negative); Urine Clarity Clear (Clear); Urine Color Yellow (Yellow); Urine Culture Reflex Order NOT NEEDED; Urine Glucose NEGATIVE (Negative); Urine Ketones NEGATIVE (Negative); Urine Microscopic Reflex YN ORDER UMIC; Urine Mucus Slight /HPF (None Seen); Urine Nitrite NEGATIVE (Negative); Urine Protein TRACE (Negative); Urine RBC <5 /HPF (None Seen); Urine Urobilinogen Normal (Normal); Urine pH 5.5 (5.0-7.0)
[2023-11-21] MEDS ORDERED: CEFTRIAXONE 2000 MG/VIAL ONE (19:17)
[2023-11-21] MEDS ORDERED: NA CHLORIDE 0.9% 100 ML ONE (19:18)
[2023-11-21] MEDS ORDERED: ENOXAPARIN 100 MG/ML SYR SQ ONE (19:31)
[2023-11-21] MEDS ORDERED: ENOXAPARIN 60 MG/0.6 ML SQ ONE (19:32)
[2023-11-21] MEDS ORDERED: VANCOMYCIN 1 GM/VIAL ONE (19:32)
[2023-11-21] MEDS ORDERED: VANCOMYCIN 500 MG/VIAL ONE (19:32)
[2023-11-21] MEDS ORDERED: NA CHLORIDE 0.9% 250 ML ONE (19:33)
--- NOTE | 2023-11-21 20:07 | RAD REPORT ---
EXAM DESCRIPTION: US - Renal Ultrasound-Complete - 11/21/2023 7:57 pm CLINICAL HISTORY: urine retention Flank pain COMPARISON: <Comparisons> FINDINGS: Both kidneys are normal in size, shape and echotexture. The right kidney measures 11.3 x 6.2 x 5.9 cm. No hydronephrosis, focal mass or perinephric fluid. The left kidney measures 11.6 x 6.5 x 5.3 cm. No hydronephrosis, focal mass or perinephric fluid. The urinary bladder is incompletely distended without gross abnormality seen. IMPRESSION: Unremarkable renal sonogram.
--- NOTE | 2023-11-21 20:17 | ER ---
Nurse's Notes [facility] Name: Girma Vernon Age: 68 yrs Sex: Male : 1955 Arrival Date: 11/21/2023 Time: 15:55 Bed 7 Private MD: Diagnosis: Weakness;Unspecified atrial fibrillation;Cellulitis of left lower limb;Sepsis, unspecified organism Presentation: 11/20 15:52 Chief complaint: EMS states: WEAKNESS, FELL TODAY DUE TO LEGS GIVING OUT HIT LEFT SIDE db OF HEAD, LEFT ARM SKIN TEAR. BILATERAL LEG SWELLING HAS BEEN CHRONIC. NEW ONSET FEVER 100.3 AND NEW ONSET AFIB. Coronavirus screen: Client denies travel out of the [place] in the last 14 days. At this time, the client does not indicate any symptoms associated with coronavirus-19. Ebola Screen: Patient negative for fever greater than or equal to 101.5 degrees Fahrenheit, and additional compatible Ebola Virus Disease symptoms Patient denies exposure to infectious person. Patient denies travel to an Ebola-affected area in the 21 days before illness onset. No symptoms or risks identified at this time. Initial Sepsis Screen: Does the patient meet any 2 criteria? Temp <36.0*C (96.8*F)) or > 38.3*C (100.9*F). HR > 90 bpm. Yes Does the patient have a suspected source of infection? No. Patient's initial sepsis screen is negative. 15:52 Method Of Arrival: EMS: [facility] db 16:02 Risk Assessment: Do you want to hurt yourself or someone else? Patient reports no db desire to harm self or others. Onset of symptoms was November 19, 2023. Care prior to arrival: IV initiated. 20 GA, in the right antecubital area, Glucose check: 132. Mechanism of Injury: Fall from standing position. 16:02 Acuity: [place] 2 db Triage Assessment: 16:04 General: Appears in no apparent distress. comfortable, Behavior is calm, cooperative. db Pain: Complains of pain in right leg and left leg. Neuro: Level of Consciousness is awake, alert, obeys commands, Oriented to person, place, time, situation. Respiratory: Airway is patent Respiratory effort is even, unlabored, Respiratory pattern is regular, symmetrical. Historical: - Allergies: 16:04 Codeine; db - PMHx: 16:04 Hypertensive disorder; URINARY TRACT INFECTION; db - Immunization history:: Adult Immunizations unknown. - Infectious Disease History:: Denies. Denies. - Social history:: Smoking status: Patient reports the use of cigarette tobacco products, smokes one-half pack cigarettes per day. Screenin:[facility] ED Fall Risk Assessment (Adult) History of falling in the last 3 months, db including since admission Yes- fall prone (multiple falls) (3 pts) Confusion or Disorientation No (0 pts) Intoxicated or Sedated No (0 pts) Impaired Gait Yes (1 pt) Mobility Assist Device Used Yes (1 pt) Altered Elimination No (0 pt) Score/Fall Risk Level 3 or more points = High Risk Oriented to surroundings, Maintained a safe environment, Hourly rounding (assess needs \T\ fall precautionary measures) done, Utilized family, sitter, or virtual national accounts recruiter as indicated. Abuse screen: Denies threats or abuse. Denies injuries from another. Nutritional screening: No deficits noted. Tuberculosis screening: No symptoms or risk factors identified. Assessment: 16:05 Reassessment: SEE TRIAGE FOR ASSESSMENT. db 18:05 Reassessment: Patient appears in no apparent distress at this time. Patient and/or db family updated on plan of care and expected duration. Pain level reassessed. Patient is alert, oriented x 3, equal unlabored respirations, skin warm/dry/pink. PT STATES IS UNABLE TO URINATE. 18:05 Reassessment: Patient appears in no apparent distress at this time. Patient and/or db family updated on plan of care and expected duration. Pain level reassessed. Patient is alert, oriented x 3, equal unlabored respirations, skin warm/dry/pink. General: Appears in no apparent distress. comfortable, Behavior is calm, cooperative. Neuro: Level of Consciousness is awake, alert, obeys commands, Oriented to person, place, time, situation. Respiratory: Airway is patent Respiratory effort is even, unlabored, Respiratory pattern is regular, symmetrical. 19:06 Reassessment: POST QUIROGA INSERTION 500 ML URINE OUTPUT. PROVIDER PAGE NOTIFIED. db 11/21 00:18 General: quiroga in place,draining well, below the bladder. patient stable , sent to unit kd4 with RN. . Vital Signs: 11/20 15:52 BP 150 / 127; Pulse 101; Resp 20; Temp 103(O); Pulse Ox 97% on R/A; Weight 149.69 kg; db Height 6 ft. 1 in. ; Pain 8/10; 17:37 BP 113 / 56; Pulse 86; Resp 16; Pulse Ox 96% on R/A; db 17:46 Temp 99.7(O); db 18:00 BP 117 / 95; Pulse 101; Resp 18; Pulse Ox 95% ; db 18:12 Weight 146.74 kg (M); hb 19:25 BP 111 / 58; Pulse 78; Resp 20; Temp 99.5; Pulse Ox 100% on R/A; kd4 23:15 BP 103 / 60; Pulse 62; Resp 18; Temp 99.1; Pulse Ox 96% on R/A; Pain 0/10; kd4 15:52 Body Mass Index 43.54 (146.74 kg, 185.42 cm) db 15:52 Pain Scale: Adult db 23:15 Pain Scale: Adult kd4 Holcomb Coma Score: 11/21 00:16 Eye Response: spontaneous(4). Motor Response: obeys commands(6). Verbal Response: kd4 oriented(5). Total: 15. ED Course: 11/20 15:58 Patient arrived in ED. db 15:58 Manjeet Alcaraz PA is PHCP. cp 15:59 Manjeet Cordero MD is Attending Physician. cp 16:03 Triage completed. db 16:05 Arm band placed on Patient placed in an exam room. db 16:05 Maintain EMS IV. Dressing intact. Good blood return noted. Site clean \T\ dry. Gauge \T\ db site: 20 G RAC. 16:20 Elba Short, RN is Primary Nurse. db 16:21 Patient has correct armband on for positive identification. Bed in low position. Call db light in reach. Side rails up X2. Client placed on continuous cardiac and pulse oximetry monitoring. NIBP monitoring applied. oral and maxillofacial surgery resident on. Pulse ox on. NIBP on. Pillow given. 16:21 Initial lab(s) drawn, EKG done, COVID swab sent to lab. Flu and/or RSV swab sent to lab.db 16:22 Inserted saline lock: 20 gauge in left antecubital area, using aseptic technique. Blood db collected. Flushed with 10 mL NS. 16:38 Chest Single View XRAY In Process Unspecified. EDMS 16:46 US Extremity Venous W Compression Marcelino In Process Unspecified. EDMS 18:52 CT Head C Spine In Process Unspecified. EDMS 18:53 CT Chest W/ Con In Process Unspecified. EDMS 18:58 Quiroga cath inserted, using sterile technique, 16 Fr., by me, balloon inflated, urine db specimen collected. Patient tolerated well. 19:59 US Rp Exam Complete In Process Unspecified. EDMS 20:16 Alfredo Fuchs MD is Hospitalizing Provider. cp 11/21 00:18 Provided Education on: admission. kd4 00:18 No provider procedures requiring assistance completed. Patient admitted, IV remains in kd4 place. Administered Medications: 11/20 16:18 Drug: Acetaminophen PO 1000 mg PO once Route: PO; db 11/21 00:20 Follow up: Response: No adverse reaction kd4 11/20 19:19 Drug: Rocephin IV 2 grams IV at calculated rate once; Given slow IV push per [employer] kd4 instructions {Note: added to 100 ml NACL.} Route: IV; Rate: calculated rate; Site: left antecubital; Delivery: Primary tubing; 11/21 00:20 Follow up: IV Status: Completed infusion kd4 11/20 20:01 Drug: vancoMYCIN IVPB 1.5 grams IVPB at calculated rate once {Note: 250 ml NACL .} kd4 Route: IVPB; Rate: calculated rate; Infused Over: 1.5 hrs; Site: left antecubital; Delivery: Primary tubing; 11/21 00:21 Follow up: IV Status: Completed infusion kd4 11/20 20:01 Drug: Enoxaparin Sub-Q 1 mg/kg Sub-Q once Route: Sub-Q; Site: abdomen; kd4 11/21 00:20 Follow up: Response: No adverse reaction kd4 Medication: 11/20 16:23 VIS not applicable for this client. db Point of Care Testing: Blood Glucose: 16:13 Blood Glucose: 129 mg/dL; db Ranges: Output: 11/21 00:16 Urine: 600ml (Quiroga); Total: 600ml. kd4 Outcome: 11/20 20:17 Decision to Hospitalize by Provider. cp 11/21 00:17 Admitted to [facility] accompanied by nurse, via stretcher, Report called to floor kd4 Condition: stable Instructed on the need for admit, 00:21 Patient left the ED. kd4 Signatures: Dispatcher [employer] EDMS Manjeet Alcaraz PA PA cp Baxter, Heather, RN RN Elba Holt RN RN db Emilee Gould RN RN kd4 Corrections: (The following items were deleted from the chart) 11/20 16:03 15:52 Initial Sepsis Screen: Does the patient meet any 2 criteria? Temp <36.0*C db (96.8*F)) or > 38.3*C (100.9*F). Yes db
--- NOTE | 2023-11-21 20:17 | EDPHYS ---
Physician Documentation [facility] Name: Girma Vernon Age: 68 yrs Sex: Male : 1955 Arrival Date: 11/21/2023 Time: 15:55 Bed 7 Private MD: ED Physician Manjeet Cordero HPI: 11/20 16:05 This 68 yrs old Male presents to ER via EMS with complaints of General Weakness, Fever. cp 16:05 The patient's problem is reported as weakness, that is generalized. cp 16:05 Onset: The symptoms/episode began/occurred yesterday, and became worse today. Duration: cp The episode is continuous. 16:05 Associated signs and symptoms: Pertinent positives: fever, Pertinent negatives: cp abdominal pain, chest pain. Patient's baseline: Neuro: alert and fully oriented, Motor: no deficits, Ambulation: walks with assist only, uses walker, Speech: normal. Historical: - Allergies: 16:04 Codeine; db - PMHx: 16:04 Hypertensive disorder; URINARY TRACT INFECTION; db - Immunization history:: Adult Immunizations unknown. - Infectious Disease History:: Denies. Denies. - Social history:: Smoking status: Patient reports the use of cigarette tobacco products, smokes one-half pack cigarettes per day. ROS: 16:10 Constitutional: Positive for fever, Negative for poor PO intake, cp 16:10 Eyes: Negative for injury, pain, redness, and discharge, cp 16:10 ENT: Negative for drainage from ear(s), ear pain, sore throat, difficulty swallowing, difficulty handling secretions, 16:10 Cardiovascular: Positive for edema, Negative for chest pain, 16:10 Respiratory: Negative for cough, shortness of breath, wheezing, 16:10 Abdomen/GI: Negative for abdominal pain, vomiting, diarrhea, constipation, 16:10 : Positive for difficulty urinating, 16:10 Neuro: Positive for weakness, Negative for altered mental status, 16:10 All other systems are negative, Exam: 16:15 Constitutional: The patient appears in no acute distress, alert, awake, cp non-diaphoretic, non-toxic, well developed, well nourished, obese, 16:15 Head/Face: Normocephalic, atraumatic. cp 16:15 Eyes: Periorbital structures: appear normal, Pupils: equal, round, and reactive to light and accomodation, Extraocular movements: intact throughout, Conjunctiva: normal, no exudate, no injection, Sclera: no appreciated abnormality, Lids and lashes: appear normal, bilaterally, 16:15 ENT: External ear(s): are unremarkable, Nose: is normal, Mouth: Lips: moist, Oral mucosa: moist, Posterior pharynx: is normal, airway is patent, no erythema, no exudate, 16:15 Neck: ROM/movement: is normal, is supple, without pain, no range of motions limitations, no meningismus, 16:15 Chest/axilla: Inspection: normal, 16:15 Cardiovascular: Rate: tachycardic, Rhythm: irregular, Edema: bilateral lower extremity edema, JVD: is not appreciated, 16:15 Respiratory: the patient does not display signs of respiratory distress, Respirations: normal, no use of accessory muscles, no retractions, labored breathing, is not present, Breath sounds: decreased breath sounds, that are mild, throughout, stridor, is not appreciated, wheezing: is not appreciated, 16:15 Abdomen/GI: Inspection: obese Palpation: abdomen is soft and non-tender, in all quadrants, 16:15 Back: pain, is absent, 16:15 Skin: circumferential erythema and warmth of right lower leg. 16:15 Neuro: Orientation: to person, place \T\ time. Mentation: is normal, Motor: moves all fours, no focal deficits, Sensation: no obvious gross deficits, 16:20 ECG was reviewed by the Attending Physician. cp Vital Signs: 15:52 BP 150 / 127; Pulse 101; Resp 20; Temp 103(O); Pulse Ox 97% on R/A; Weight 149.69 kg; db Height 6 ft. 1 in. ; Pain 8/10; 17:37 BP 113 / 56; Pulse 86; Resp 16; Pulse Ox 96% on R/A; db 17:46 Temp 99.7(O); db 18:00 BP 117 / 95; Pulse 101; Resp 18; Pulse Ox 95% ; db 18:12 Weight 146.74 kg (M); hb 19:25 BP 111 / 58; Pulse 78; Resp 20; Temp 99.5; Pulse Ox 100% on R/A; kd4 23:15 BP 103 / 60; Pulse 62; Resp 18; Temp 99.1; Pulse Ox 96% on R/A; Pain 0/10; kd4 15:52 Body Mass Index 43.54 (146.74 kg, 185.42 cm) db 15:52 Pain Scale: Adult db 23:15 Pain Scale: Adult kd4 Vernon Coma Score: 11/21 00:16 Eye Response: spontaneous(4). Motor Response: obeys commands(6). Verbal Response: kd4 oriented(5). Total: 15. MDM: 11/20 16:02 Patient medically screened. cp 20:20 Data reviewed: vital signs, nurses notes, lab test result(s), EKG, radiologic studies, cp CT scan, plain films, ultrasound, and as a result, I will discharge patient. 20:20 Differential diagnosis: CVA, TIA, metabolic disorder, drug effects, sepsis, cellulitis. cp Consideration of Admission/Observation Patient was admitted/placed on observation. Management of patient was discussed with the following: Primary Care Provider: DR Fuchs will admit after discussion. Independent interpretation of the following test(s) in the Emergency Department EKG: See my EKG interpretation above. Care significantly affected by the following chronic conditions: Hypertension, Obesity. Counseling: I had a detailed discussion with the patient and/or guardian regarding the historical points, exam findings, and any diagnostic results supporting the discharge/admit diagnosis, lab results, radiology results, the need for further work-up and treatment in the hospital. Response to treatment: the patient's symptoms have markedly improved after treatment. 11/20 16: Order name: Blood Culture Adult (2) cp 11/20 16:01 Order name: CBC with Diff; Complete Time: 16:45 cp 11/20 16:45 Interpretation: Normal except: WBC 13.40; RBC 4.22; HGB 13.3; RDW 15.4; ERICH% 82.8; NEUT cp A 11.1; LYM% 5.1. 11/20 16: Order name: CMP; Complete Time: 17:19 cp 11/20 17:20 Interpretation: Normal except: GLUC 123; BUN 22; CRE 1.33; GFR 59; ALB 3.1; GLOB 4.1; cp A/G 0.8. 11/20 16: Order name: Lactate w/ 2H reflex if indic.; Complete Time: 17:19 cp 16:01 Order name: Protime (+inr); Complete Time: 17:19 cp / 16:01 Order name: Ptt, Activated; Complete Time: 17:19 cp / 16:01 Order name: Urinalysis w/ reflexes; Complete Time: 19:20 cp 08/ 19:20 Interpretation: Normal except: UBLD Trace; UPROT TRACE; UESTR 75. cp 08/ 16:01 Order name: Influenza Screen (a \T\ B); Complete Time: 17:19 cp 08/ 16:01 Order name: SARS RAPID; Complete Time: 17:19 cp 08/ 16:01 Order name: Troponin High Sensitivity; Complete Time: 17:19 cp 08/ 16:01 Order name: BNP; Complete Time: 17:19 cp 08/ 17:20 Interpretation: Abnormal: NT PRO-BNP 1670. cp 08/ 16:01 Order name: Magnesium; Complete Time: 17:19 cp 11/20 16:27 Order name: Glucose, Ancillary Testing; Complete Time: 16:45 EDMS 08/ 22:54 Order name: Basic Metabolic Panel EDMS 08 22:54 Order name: Basic Metabolic Panel EDMS 08 22:54 Order name: CBC with Automated Diff EDMS 08/ 22:54 Order name: CBC with Automated Diff EDMS 08/ 22:54 Order name: Troponin High Sensitivity EDMS 08/ 22:54 Order name: Troponin High Sensitivity EDMS 08/ 22:54 Order name: Troponin High Sensitivity EDMS 11/20 22:54 Order name: Troponin High Sensitivity EDMS 11/20 16:01 Order name: Chest Single View XRAY; Complete Time: 16:45 cp 08/ 16:01 Order name: US Extremity Venous W Compression Marcelino; Complete Time: 17:19 cp 11/20 17:55 Order name: CT Head C Spine; Complete Time: 19:07 cp 11/20 17:55 Order name: CT Chest W/ Con; Complete Time: 19:07 cp 08/ 19:08 Interpretation: Report reviewed. cp 11/20 19:28 Order name: US Rp Exam Complete; Complete Time: 20:17 cp / 20:17 Interpretation: Report reviewed. cp 11/20 22:54 Order name: CONS Physician Consult EDMS 11/20 22:54 Order name: EKG Electrocardiogram EDMS 11/20 22:54 Order name: EKG Electrocardiogram EDMS 11/20 22:54 Order name: EKG Electrocardiogram EDMS 11/20 22:54 Order name: EKG Electrocardiogram EDMS 11/20 16:01 Order name: Accucheck; Complete Time: 16:20 cp 08 16:01 Order name: Cardiac monitoring; Complete Time: 16:20 cp 11/20 16:01 Order name: EKG - Nurse/Tech; Complete Time: 16:20 cp 11/20 16:01 Order name: IV Saline Lock - Large Bore; Complete Time: 16:20 cp 08 16:01 Order name: Labs collected and sent; Complete Time: 16:20 cp 08 16:01 Order name: O2 Per Protocol; Complete Time: 16:20 cp 08 16:01 Order name: O2 Sat Monitoring; Complete Time: 16:20 cp 08 16:01 Order name: Vital Signs; Complete Time: 16:21 cp 11/20 18:48 Order name: Krishnamurthy; Complete Time: 19:05 cp EC:20 Rate is 91 beats/min. Rhythm is irregular. QRS interval is prolonged at 116 msec. QT cp interval is normal. Interpreted by me. Reviewed by me. Administered Medications: 16:18 Drug: Acetaminophen PO 1000 mg PO once Route: PO; db 11/21 00:20 Follow up: Response: No adverse reaction [facility] 11/20 19:19 Drug: Rocephin IV 2 grams IV at calculated rate once; Given slow IV push per [employer] kd4 instructions {Note: added to 100 ml NACL.} Route: IV; Rate: calculated rate; Site: left antecubital; Delivery: Primary tubing; 11/21 00:20 Follow up: IV Status: Completed infusion 4 11/20 20:01 Drug: vancoMYCIN IVPB 1.5 grams IVPB at calculated rate once {Note: 250 ml NACL .} kd4 Route: IVPB; Rate: calculated rate; Infused Over: 1.5 hrs; Site: left antecubital; Delivery: Primary tubing; 11/21 00:21 Follow up: IV Status: Completed infusion 4 11/20 20:01 Drug: Enoxaparin Sub-Q 1 mg/kg Sub-Q once Route: Sub-Q; Site: abdomen; kd4 11/21 00:20 Follow up: Response: No adverse reaction kd4 Point of Care Testing: Blood Glucose: 11/20 16:13 Blood Glucose: 129 mg/dL; db Ranges: Critical Glucose Levels:Adult <50 mg/dl or >400 mg/dl <40 mg/dl or >180 mg/dl Disposition Summary: 11/21/23 20:17 Hospitalization Ordered Notes: Hospitalization Status: Inpatient Admission cp Provider: Alfredo Fuchs cp Location: Telemetry/MedSurg (Inpatient) cp Condition: Stable cp Problem: new cp Symptoms: have improved cp Bed/Room Type: Standard cp Room Assignment: 217(11/21/23 23:11) rv1 Diagnosis - Weakness cp - Unspecified atrial fibrillation cp - Cellulitis of left lower limb cp - Sepsis, unspecified organism cp Discharge Instructions: - Discharge Summary Sheet kd4 Forms: - Medication Reconciliation Form cp - SBAR form cp - Leadership Thank You Letter cp Signatures: Dispatcher [employer] EDMS Manjeet Alcaraz PA PA cp Elba Short RN RN db Eda Arce rv1 Emilee Gould RN RN kd4 Corrections: (The following items were deleted from the chart) 16:02 16:02 BLOOD CULTURE*+BA.LAB.BRZ ordered. EDMS EDMS 16:02 16:02 CBC+H.LAB.BRZ ordered. EDMS EDMS 16:02 16:02 COMPREHENSIVE METABOLIC PANEL+C.LAB.BRZ ordered. EDMS EDMS 16:02 16:02 LACTATE+C.LAB.BRZ ordered. EDNE EDMS 16:02 16:02 PROTIME (+INR)+COAG.LAB.BRZ ordered. EDMS EDMS 16:02 16:02 PTT, ACTIVATED+COAG.LAB.BRZ ordered. EDMS EDMS 16:02 16:02 Urinalysis+U.LAB.BRZ ordered. EDMS EDMS 16:02 16:02 Influenza Screen (A \T\ B)+BA.LAB.BRZ ordered. EDMS EDMS 16:02 16:02 SARS-COV-2 Antigen Rapid+I.LAB.BRZ ordered. EDMS EDMS 16:02 16:02 Troponin High Sensitivity+C.LAB.BRZ ordered. EDMS EDMS 16:02 16:02 PROBNP+C.LAB.BRZ ordered. EDMS EDMS 16:02 16:02 MAGNESIUM+C.LAB.BRZ ordered. EDMS EDMS 16:02 16:02 Chest Single View+RAD.RAD.BRZ ordered. EDMS EDMS 16:02 16:02 Extrem Venous W Compression Marcelino+US.RAD.BRZ ordered. EDMS EDMS 17:56 17:56 Thorax W/ Con+CT.RAD.BRZ ordered. EDMS EDMS 18:48 18:03 Krishnamurthy ordered. cp cp 19:28 19:28 Rp Exam Complete+US.RAD.BRZ ordered. EDMS EDMS 23:11 20:17 cp rv1
[2023-11-21] MEDS ORDERED: ACETAMINOPHEN 500 MG TAB PO PRN (22:46)
[2023-11-21] MEDS ORDERED: ONDANSETRON 4 MG/2 ML VIAL IV PRN (22:46)
[2023-11-22] MEDS: PIPER TAZO 3.375 GM in NA CHLORIDE 0.9% 100 ML IV SCH (02:57)
[2023-11-22 06:38] LABS: Absolute Basophils 0.1 K/uL (0-0.5); Absolute Eosinophils 0.2 K/uL (0-0.5); Absolute Lymphocytes (CBC) 1.1 K/uL (0.7-4.9); Absolute Monocytes 1.3 K/uL (0.1-1.3); Absolute Neutrophil 7.3 K/uL (1.8-8.0); Basophils % 1.4 % (0-1.3); Eosinophils % 2.5 % (0-4.4); Hematocrit 36.9 % (39.6-49.0); Hemoglobin 12.3 g/dL (13.6-17.9); Lymphocytes % 11.3 % (15.3-44.8); MCH 32.3 pg (27.0-35.0); MCHC 33.4 g/dL (32.0-36.0); MCV 96.6 fL (80-100); MPV 8.5 fL (7.6-11.3); Monocytes % 12.9 % (3.3-12.3); Neutrophils % 71.9 % (41.7-73.7); Platelets 261 thou/uL (152-406); RBC Red Blood Cell Count 3.82 M/uL (4.33-5.43); Red Cell Distribution Width 15.6 % (12.1-15.2)
[2023-11-22 06:48] LABS: Anion Gap 6.6 mEq/L (5.0-15.0); Potassium 3.6 mEq/L (3.5-5.1)
[2023-11-22] MEDS: APIXABAN 5 MG TABLET PO SCH (08:24)
[2023-11-22] MEDS ORDERED: ASPIRIN EC 81 MG TAB PO SCH (09:00)
[2023-11-22] MEDS: NA CHLORIDE 0.9% 500 ML IV ONE (17:34)
[2023-11-22] MEDS: ROSUVASTATIN 10 MG TAB PO SCH (20:12)
[2023-11-22] MEDS: NA CHLORIDE 0.9% 1,000 ML IV SCH (21:44)
[2023-11-23 12:16] VITALS: BP 134/65; TEMP 98.7
[2023-11-23 14:48] VITALS: O2SAT 96
--- NOTE | 2023-11-23 19:51 | CON ---
Date of Consultation: 11/23/2023 Reason For Consultation: Atrial fibrillation and lower extremity edema. History Of Present Illness: This is a 68-year-old male with morbid obesity, hypertension, presented to the emergency room because of generalized weakness, significant lower extremity edema and redness and erythema. Denies having any fever. No nausea, vomiting, and diarrhea. Was diagnosed with cellu litis, started on antibiotics, and did well. There were reports that he was in atrial fibrillation i n the hospital presentation. However, he is currently in sinus rhythm and not able to locate his EKG . Past Medical History: As outlined above in the HPI. Medications: Refer to reconciliation sheet for a detailed list. Allergies: NO KNOWN DRUG ALLERGIES. Family History: No premature coronary artery disease or cancer. Social History: He is an active smoker. Does not drink or use any drugs. Review of Systems: All systems were reviewed and they were negative except as mentioned in the HPI. Physical Examination: Vital Signs: Reviewed. Head and Neck: Pupils are equal, reactive to light. Intact eye movements. No JVD. No cervical lym phadenopathy. Neck is supple. Thyroid is not enlarged. Lungs: Clear to auscultation bilaterally. No rhonchi, wheezing, or crackles. No accessory muscle u se. Heart: Regular rate and rhythm. No extra sounds. Abdomen: Soft, nontender. Bowel sounds positive. No organomegaly. No masses or hernia. No rigidi ty or rebound. Extremities: No clubbing or cyanosis. Positive edema. Neurologic: Alert, awake, oriented x3. No acute focal deficits appreciated. Investigations: BUN 20, creatinine 1.08. Troponins are negative. NT-proBNP is 1670. Assessment And Recommendations: 1.Acute on chronic congestive heart failure exacerbation. Definitely, patient has chronic congestiv e heart failure. His NT-proBNP is very high despite his being obese, suggestive of significant eleva tion of his filling pressures. Recommend diuretics with Lasix as well as an echocardiogram. Discuss ed the case with Dr. Fuchs. The patient wants to go home. We will plan for outpatient diuretic thera py and an echo to be done as an outpatient and patient was instructed to follow up with me early next week. 2.Acute renal failure and this is resolved. 3.Dyslipidemia, on a statin. Continue current management. 4.Questionable atrial fibrillation. Could not locate that EKG. At any rate, he is in sinus rhythm at this moment, but when he presented to the emergency room, he had a high pulse rate at 101, not steffany e if he has history of atrial fibrillation. I will plan on putting a long-term monitor on him on an outpatient basis to evaluate. /JASON Voice ID: [id number] Report ID: [id number]
--- NOTE | 2023-11-23 22:11 | HP ---
Date of Admission: 11/21/2023 Chief Complaint: Feeling weak. History Of Present Illness: This is a 68-year-old pleasant male patient who has not felt good for co uple of days with just generalized fatigue and weakness, and he came into emergency room with worseni ng of symptoms where he actually tried to sit down in his couch, lost balance, and fell down on the f carson. Denies any head injury or loss of consciousness, but he was not able to get up and could not help him, so she called 911 and the patient was brought into emergency room. After the patient w as evaluated in the emergency room, he was admitted to the hospital with cellulitis of left lower ext remity. The patient was noted to have redness of significant portion of his left lower extremity, an d he says that he just noticed that within last day or so. In emergency room, they had a hard time c ollecting urine specimen because he was not able to void, so Krishnamurthy catheter was placed and urine spec imen was obtained. When I saw him early this morning, he started to notice very mild gross hematuria . Prior to that, he did not have any hematuria at home. Allergies: NO KNOWN ALLERGIES. Medications: Aspirin 81 mg daily, triamterene/HCTZ 37.5/25 takes half a tablet daily, rosuvastatin 5 mg daily at bedtime, and nitrofurantoin 100 mg daily. Review of Systems: Constitutional: As mentioned above. Dermatology: As mentioned above. Cardiovascular: Chronic leg edema. Genitourinary: The patient has chronic problems with urinary frequency, urgency, nighttime urination and he has appointment to see urologist, Dr. Miguel Reynolds, in January. All other systems reviewed and negative. Past Surgical History: Tonsillectomy, back surgery, cervical spine surgery, shoulder surgery, and kn ee surgery. Family History: Father , had congestive heart failure, colon cancer, and prostate cancer. Mothe r , had congestive heart failure. Brother with coronary artery disease, hypertension, diabetes. Social History: Significant for smoking. Use of alcohol: Negative. Past Medical History: Significant for hypertension, abdominal aortic aneurysm, hyperlipidemia, benig n prostatic hypertrophy, leg edema, diverticulosis, and high PSA. Physical Examination: Vital Signs: When he first came into emergency room, temperature was 99.7, pulse 86, respiratory rat e 16, blood pressure 113/56, oxygen saturation 96%. Height 6 feet, weight 330 pounds. General: Awake, alert, oriented, not in distress. HEENT: Head atraumatic, normocephalic. Conjunctivae nonerythematous. Sclerae white. Mouth, no thr ush or edema noted. Ears/Nose, no mass, lesion, discharge noted. Neck: Supple. No JVD, lymph nodes, bruit, thyromegaly noted. Lungs: Bilateral good equal air entry. Clear to auscultation. No rhonchi. No rales. Heart: Normal heart sounds, no murmur or gallop. Abdomen: Soft, bowel sounds normal. No guarding, rigidity, tenderness, mass, hepatosplenomegaly, dis tention, or bruit noted. Extremities: The patient has grade 1 edema, bilateral lower extremities. Left lower extremity has s ignificant involvement with redness of skin involving left leg between knee and foot. There is no op en wound. Skin: No rash, ulcer, cellulitis. Lymphatics: No lymph node enlargement in neck, supraclavicular, infraclavicular region. Neuro: No focal neurological deficit. Chest: Unremarkable. External Genitalia: Deferred. Rectal: Deferred. Laboratory Data: White count 13.4, hemoglobin 13.3, platelets 300. Sodium 139, potassium 3.9, chlor viviana 107, bicarb 25, BUN 22, creatinine 1.33, glucose 123. Lactic acid 2. Liver function test unrema rkable. Chest x-ray showed bilateral moderate pulmonary opacities. Venous Doppler of leg was negati ve for DVT. CAT scan of the chest without contrast was negative for any acute changes. CAT scan of the head and cervical spine was negative for any acute traumatic findings. Impression: 1.Cellulitis, left leg. 2.Volume depletion. 3.Acute kidney injury. 4.Hypertension. 5.Leg edema. 6.Hyperlipidemia. 7.Benign prostatic hypertrophy with lower urinary tract symptoms. 8.Diverticulosis. 9.Rule out atrial fibrillation. Plan: We will go ahead and admit the patient to hospital for further evaluation and management of th is problem. The patient is appropriate for inpatient, and he is expected [facility]. For cellulitis, we will continue empiric antibiotic, Zosyn, per order and we will repeat bloo d work tomorrow. Continue IV fluid per order for acute kidney injury, and we will follow up on elect rolytes and renal function tomorrow. The patient's EKG in emergency room was reported as showing atr ial fibrillation. Obviously, he has no prior history or symptoms. I have reviewed EKG tracing, and it is a poor tracing as far as EKG is concerned and I am not convinced about atrial fibrillation and ever since the patient has been admitted to the hospital on telemetry, he has remained in sinus rhyth m. We will repeat EKG. We have requested Cardiology consultation for evaluation. Meanwhile, we irving l continue Eliquis 5 mg 2 times a day per order. Home medication, rosuvastatin will be continued. W e will not give any diuretic medication he takes at home at this point considering his blood pressure . His blood pressure was slightly on the low side, so we will give IV fluid bolus per order and cont inue maintenance IV fluid. For his benign prostatic hypertrophy, the patient was advised to continue to follow up with urologist and I will see him tomorrow for followup. ROGER/MODL Voice ID: [id number]
--- NOTE | 2023-11-24 02:33 | DS ---
Date of Discharge: 11/23/2023 Disposition: Discharged to go home. Physical Examination: HEENT: Unremarkable. Lungs: Clear to auscultation. Cardiac: Heart sounds normal. Abdomen: Soft. Bowel sounds normal. No guarding, rigidity, tenderness, distention. Extremities: Bilateral grade 1 pedal edema. Left leg exam shows significant improvement in cellulit is that patient had upon admission between left knee and left foot area, now is significantly less co mpared to yesterday and intensity of the redness is significantly less an area of distribution is als o significantly smaller compared to yesterday. Laboratory Data: Yesterday chemistry: Sodium 138, potassium 3.6, chloride 109, bicarb 26, BUN 20, c reatinine 1.08, glucose 122. Cardiac enzymes remain negative. First troponin 32, second troponin 41 .3, last troponin 17.2. For chemistry upon admission: Sodium 139, potassium 3.9, chloride 107, bica rb 25, BUN 22, creatinine 1.33, glucose 123. For CBC upon admission: White count 13.4, hemoglobin 1 3.3, platelets 300 and yesterday white count 10.10, hemoglobin 12.3, platelets 261. EKG done today s hows normal sinus rhythm and cafeteria monitor. Ever since the time of admission, has not shown any atrial fibrillation and the patient has remained in sinus rhythm. Chest x-ray: No acute intrathorac ic changes except some moderate pulmonary opacities, which found out to be not true as CT scan of the chest was negative for any acute findings. CT scan of the head and cervical spine was negative for any findings. Venous Doppler of both leg was negative for DVT. Hospital Course: This is a 68-year-old pleasant male patient, admitted to the hospital with weakness and fall at home. Please see dictated H and P for more information. After patient was evaluated in the emergency room, he was admitted to the hospital and see dictated H and P for more details. The patient had volume depletion, acute kidney injury, and cellulitis of left lower extremity and he was started on IV fluid, IV antibiotics, and overall condition has improved significantly. The patient a lso had some trouble voiding in the emergency room, so Krishnamurthy catheter was placed, which will be remov ed today. He had very mild gross hematuria that was noted in the Krishnamurthy catheter yesterday, which has completely resolved now. We will remove Krishnamurthy catheter and after removal of Krishnamurthy catheter once dixon collins is able to void, we will discharge him to go home. He has appointment to see urologist, Dr. Deshawn Reynolds, for January and he will keep that appointment. There was question raised on EKG done in the emergency room about atrial fibrillation and that tracing was not the best quality tracing, so w e have repeated EKG, which has shown normal sinus rhythm, and the patient has not shown any evidence of atrial fibrillation on cafeteria monitor. He did get during this hospitalization until we resolved this question that there is no reason for him to go as we have not seen any e vidence of atrial fibrillation. Official Cardiology's report on the EKG from emergency room is pendi ng. Cardiology consultation was requested for this and the patient has not been evaluated by cardiol ogist, and today, he is medically stable for discharge, so our plan will be to go ahead and discharge him to go home with following discharge medications and instructions: 1.Do not take nitrofurantoin for 10 days. 2.Start Augmentin 875 mg 2 times a day with food for 10 days. 3.Follow up at my office on 11/26/2023. Final Diagnoses: 1.Cellulitis, left leg. 2.Acute kidney injury. 3.Volume depletion. 4.Hypertension. 5.Hyperlipidemia. 6.Infrarenal abdominal aortic aneurysm. 7.Benign prostatic hypertrophy with lower urinary tract symptoms. 8.Long-term use of aspirin therapy. 9.Diverticulosis. 10.High PSA. Total time spent today was 45 minutes. ROGER/MODL Voice ID: [id number] Report ID: [id number]
--- NOTE | 2023-11-24 13:54 | EKG ---
Test Date: 2023-11-21 Test Time: 16:12:14 [employer]: [place] MEASUREMENT RESULTS: Intervals: Rate: 91 CO: QRSD: 116 QT: 396 QTc: 487 [place]: P: CO: QRS: -28 T: 32 INTERPRETIVE STATEMENTS: Atrial fibrillation Incomplete right bundle branch block Prolonged QT Abnormal ECG Compared to ECG 01/22/2020 12:43:19 Incomplete right bundle-branch block now present Prolonged QT interval now present Sinus rhythm no longer present Left-axis deviation no longer present Right bundle-branch block no longer present Electronically Signed On 11-24-23 13:47:38 CDT by David Hoffman
== END 2023-11-23 15:58 | disposition home or self-care (01) | DRG 603 ==
LOC: ER 15:55 → ERHOLD 22:44 → 2ND 11-22 00:02
PROVIDERS: ADMIT Internal Medicine; ATTEND Internal Medicine
PROC: 0T9B70Z Drainage of Bladder with Drainage Device, Via Natural or Artificial Opening (ICD-10-PCS; principal; 2023-11-21)
DX: L03.116 Cellulitis of left lower limb (principal); N17.9 Acute kidney failure, unspecified; Z68.41 Body mass index [BMI] 40.0-44.9, adult; R53.1 Weakness; I11.0 Hypertensive heart disease with heart failure; F17.210 Nicotine dependence, cigarettes, uncomplicated; I50.9 Heart failure, unspecified; I71.43 Infrarenal abdominal aortic aneurysm, without rupture; N40.1 Benign prostatic hyperplasia with lower urinary tract symptoms; K57.90 Diverticulosis of intestine, part unspecified, without perforation or abscess without bleeding; E78.5 Hyperlipidemia, unspecified; R60.9 Edema, unspecified; E86.9 Volume depletion, unspecified; Z11.52 Encounter for screening for COVID-19; E66.01 Morbid (severe) obesity due to excess calories; R31.0 Gross hematuria; R35.0 Frequency of micturition; R39.15 Urgency of urination; R97.20 Elevated prostate specific antigen [PSA]; Z79.82 Long term (current) use of aspirin
CPT/HCPCS: 36415; 51702; 70450; 71045; 71260; 72125; 76770; 80048; 80053; 81001; 82947; 83605; 83735; 83880; 84484; 85025; 85610; 85730; 87040; 87804; 87811; 93005; 93970; 96365; 96366; 96372; 99285; J0696; J1650; J2543; J7030; J7040; J7050; Q9967

== ENCOUNTER 2023-12-10 16:09 | Inpatient (IN) | payer OTHER, MEDICARE ==
[2023-12-10 16:39] LABS: Absolute Basophils 0.1 K/uL (0-0.5); Absolute Lymphocytes (CBC) 0.8 K/uL (0.7-4.9); Absolute Monocytes 2.4 K/uL (0.1-1.3); Basophils % 0.7 % (0-1.3); Eosinophils % 0.1 % (0-4.4); Hematocrit 40.4 % (39.6-49.0); Hemoglobin 13.2 g/dL (13.6-17.9); Lymphocytes % 3.9 % (15.3-44.8); MCH 31.4 pg (27.0-35.0); MCHC 32.6 g/dL (32.0-36.0); MCV 96.5 fL (80-100); MPV 8.1 fL (7.6-11.3); Monocytes % 11.2 % (3.3-12.3); Neutrophils % 84.1 % (41.7-73.7); Platelets 315 thou/uL (152-406); RBC Red Blood Cell Count 4.19 M/uL (4.33-5.43)
[2023-12-10 16:45] LABS: PT Prothrombin Time 14.3 SECONDS (9.4-12.5); Protime INR 1.29
[2023-12-10 16:59] LABS: Albumin 3.1 g/dL (3.4-5.0); Albumin/Globulin Ratio 0.7 (1.1-1.8); Anion Gap 10.1 mEq/L (5.0-15.0); Bilirubin Direct 0.2 mg/dL (0-0.2); Bilirubin Indirect, Calculated 0.6 mg/dL (0.2-0.8); Bilirubin Total 0.8 mg/dL (0.2-1.0); Globulin 4.3 g/dL (2.3-3.5); Magnesium 1.9 mg/dL (1.6-2.4); Potassium 4.1 mEq/L (3.5-5.1); Protein, Total 7.4 g/dL (6.4-8.2); Troponin High Sensitivity 31.5 pg/mL (<58.9)
--- NOTE | 2023-12-10 17:32 | RAD REPORT ---
EXAM DESCRIPTION: RAD - Chest Single View - 12/10/2023 5:24 pm CLINICAL HISTORY: generalized weaknes Chest pain. COMPARISON: Chest Single View dated 11/21/2023; Chest Pa And Lat (2 Views) dated 06/03/2022; Chest Sing le View dated 01/22/2020 FINDINGS: Portable technique limits examination quality. Mild pulmonary edema. The heart is moderately enlarged. No displaced fractures.Cervical hardware plat e. IMPRESSION: Mild CHF.
[2023-12-10] MEDS ORDERED: FUROSEMIDE 20 MG/ 2ML VIAL ONE (18:25)
[2023-12-10] MEDS ORDERED: CEFTRIAXONE 1000 MG/VIAL ONE (18:25)
[2023-12-10] MEDS ORDERED: NA CHLORIDE 0.9% 50 ML ONE (18:25)
[2023-12-10] MEDS ORDERED: ONDANSETRON 4 MG/2 ML VIAL ONE (18:25)
[2023-12-10 18:44] LABS: Band Neutrophils 8 % (0-1); Differential Total Cells Count 100; Eosinophils 1 % (0-3); Lymphocytes 8 % (15-42); Monocytes 10 % (0-10); Platelet Estimate ADEQ; Segmented Neutrophils 73 % (40-80)
[2023-12-10 18:45] LABS: Blood Morphology Comment NOT SEEN (NOT SEEN)
--- NOTE | 2023-12-10 18:50 | ER ---
Nurse's Notes [facility] Name: Girma Vernon Age: 68 yrs Sex: Male : 1955 Arrival Date: 12/10/2023 Time: 16:09 Bed 6 Private MD: Diagnosis: Anemia, unspecified;Cardiac arrhythmia, unspecified;Muscle weakness (generalized) Presentation: 12/09 16:20 Chief complaint: EMS states: Generalized weakness primarily in lower extremities that ph started at approx 4 am today, pt was found to be initially hypotensive w/ systolic BP 88, IV established and 250 mL NS given, 12 lead showed possible a-fib, pt denies hx of irregular heartbeat. Coronavirus screen: Vaccine status: Patient reports receiving the 2nd dose of the covid vaccine. Ebola Screen: No symptoms or risks identified at this time. Initial Sepsis Screen: Does the patient meet any 2 criteria? No. Patient's initial sepsis screen is negative. Does the patient have a suspected source of infection? No. Patient's initial sepsis screen is negative. Risk Assessment: Do you want to hurt yourself or someone else? Patient reports no desire to harm self or others. Onset of symptoms was December 10, 2023. 16:20 Method Of Arrival: EMS: [facility] 16:20 Acuity: [place] 2 ph Triage Assessment: 16:35 General: Appears in no apparent distress. Behavior is calm, cooperative. Pain: Denies ph pain. Neuro: Level of Consciousness is awake, alert, obeys commands, Oriented to person, place, time, situation, Reports weakness. Cardiovascular: Reports fatigue, lightheadedness, shortness of breath, Denies chest pain, Capillary refill < 3 seconds in bilateral fingers Patient's skin is warm and dry. Edema is 4+ to left midcalf, left ankle, left foot, right midcalf, right ankle and right foot Rhythm is atrial fibrillation. Respiratory: Airway is patent Respiratory effort is even, unlabored, Respiratory pattern is regular, symmetrical. GI: Abdomen is round non-distended. Musculoskeletal: Circulation, motion, and sensation intact. Range of motion: intact in all extremities. Historical: - Allergies: 16:23 Codeine; ph - PMHx: 16:23 Hypertensive disorder; urinary tract infection; ph - Immunization history:: Adult Immunizations unknown. - Infectious Disease History:: Denies. - Social history:: Smoking status: unknown. Screenin:54 [facility] ED Fall Risk Assessment (Adult) History of falling in the last 3 months, ph including since admission No falls in past 3 months (0 pts) Confusion or Disorientation No (0 pts) Intoxicated or Sedated No (0 pts) Impaired Gait Yes (1 pt) Mobility Assist Device Used No (0 pt) Altered Elimination No (0 pt) Score/Fall Risk Level 0 - 2 = Low Risk Oriented to surroundings, Maintained a safe environment, Hourly rounding (assess needs \T\ fall precautionary measures) done. Abuse screen: Denies threats or abuse. Denies injuries from another. Nutritional screening: No deficits noted. Tuberculosis screening: No symptoms or risk factors identified. Assessment: 16:53 General: SEE TRIAGE ASSESMENT. ph 18:00 Reassessment: Patient appears in no apparent distress at this time. Patient and/or ph family updated on plan of care and expected duration. Pain level reassessed. Patient is alert, oriented x 3, equal unlabored respirations, skin warm/dry/pink. Vital Signs: 16:20 BP 103 / 49; Pulse 93; Resp 18; Temp 97.2; Pulse Ox 97% on R/A; Weight 136.08 kg; ph Height 5 ft. 11 in. ; 16:54 BP 111 / 63; Pulse 86; Resp 18; Pulse Ox 100% on R/A; ph 18:00 BP 115 / 64; Pulse 110; Resp 18; Pulse Ox 98% on R/A; ph 19:00 BP 124 / 53; Pulse 81; Resp 18; Pulse Ox 95% on R/A; me1 19:30 BP 109 / 69; Pulse 98; Resp 19; Pulse Ox 95% on R/A; me1 16:20 Body Mass Index 41.84 (136.08 kg, 180.34 cm) ph ED Course: 16:20 Patient arrived in ED. ph 16:23 Triage completed. ph 16:23 Phan Figueroa DO is Attending Physician. ms3 16:24 Arm band placed on Patient placed in an exam room. ph 16:25 Marlys Capone RN is Primary Nurse. ph 16:35 Basic Metabolic Panel Sent. ph 16:35 CBC with Diff Sent. ph 16:35 LFT's Sent. ph 16:35 Magnesium Sent. ph 16:35 NT PRO-BNP Sent. ph 16:35 PT-INR Sent. ph 16:35 Troponin HS Sent. ph 16:36 Initial lab(s) drawn, by me, sent to lab. Maintain EMS IV. Dressing intact. Good blood ph return noted. Site clean \T\ dry. Gauge \T\ site: 18 LAC. Flushed with 10 mL NS. 16:52 EKG done, by ED staff, reviewed by Phan Figueroa DO. ph 16:53 Patient has correct armband on for positive identification. Bed in low position. Call ph light in reach. Side rails up X2. Client placed on continuous cardiac and pulse oximetry monitoring. NIBP monitoring applied. patient monitor on. Door closed. Noise minimized. 17:26 XRAY Chest (1 view) In Process Unspecified. EDMS 18:49 Gatito Fuchs MD is Hospitalizing Provider. ms3 19:22 Urinalysis w/ reflexes Sent. me1 19:23 Urine collected: clean catch specimen, cloudy. me1 19:24 No provider procedures requiring assistance completed. me1 19:24 Patient admitted, IV remains in place. ph 19:50 Repeat lab(s) drawn. by me, sent to lab. First set of blood cultures drawn by me. me1 19:57 Blood Culture Adult (2) Sent. me1 19:57 CMP Sent. me1 19:57 Lactate w/ 2H reflex if indic. Sent. me1 19:57 Ptt, Activated Sent. me1 20:03 Second set of blood cultures drawn by me. me1 20:06 Urine Culture Sent. me1 Administered Medications: 19:12 Not Given (Physician Discretion): [id number] mg IVP once; give over 2 minutes ph 20:05 Drug: Ondansetron IVP 2 mg IVP once; over 2 minutes Route: IVP; Site: right antecubital;me1 20:06 Follow up: Response: No adverse reaction; Nausea is decreased me1 20:06 Drug: Rocephin IV 1 grams IV at calculated rate once; Given slow IV push per pharmacy me1 instructions Route: IV; Rate: calculated rate; Site: right antecubital; 20:07 Follow up: Response: No adverse reaction; IV Status: Completed infusion me1 20:06 Drug: Lovenox Sub-Q 40 mg Sub-Q once Route: Sub-Q; Site: abdomen; me1 20:17 Follow up: Response: No adverse reaction me1 20:06 Drug: NS 0.9% IV 500 ml IV at bolus once Route: IV; Rate: bolus; Site: left antecubital;me1 20:06 Drug: NS 0.9% IV 1000 ml IV at 100 ml/hr once Route: IV; Rate: 100 ml/hr; Site: left me1 antecubital; Medication: 16:53 VIS not applicable for this client. ph Outcome: 18:50 Decision to Hospitalize by Provider. ms3 22:06 Patient left the ED. jb4 Signatures: Dispatcher [employer] Marlys Stout RN RN Ravi Gongora RN RN jb4 Phan Figueroa DO DO ms3 Migdalia Bryan, RN RN me1
--- NOTE | 2023-12-10 18:50 | EDPHYS ---
Physician Documentation [facility] Name: Girma Vernon Age: 68 yrs Sex: Male : 1955 Arrival Date: 12/10/2023 Time: 16:09 Bed 6 Private MD: ED Physician Phan Figueroa HPI: 12/09 19:05 This 68 yrs old Male presents to ER via EMS with complaints of General Weakness. ms3 19:05 68-year-old male with past medical history of hypertension, urinary tract infection ms3 presents to the emergency department via [facility] for generalized weakness. Patient states he was unable to get up and walk today. EMS notes patient's blood pressure 80/60 on arrival. Patient was given 300 mL normal saline with improvement of blood pressure. Historical: - Allergies: 16:23 Codeine; ph - PMHx: 16:23 Hypertensive disorder; urinary tract infection; ph - Immunization history:: Adult Immunizations unknown. - Infectious Disease History:: Denies. - Social history:: Smoking status: unknown. ROS: 19:05 Cardiovascular: Negative for chest pain, and palpitations. Respiratory: Negative for ms3 shortness of breath, cough, wheezing, and pleuritic chest pain, Abdomen/GI: Negative for abdominal pain, nausea, vomiting, diarrhea, and constipation, Skin: Negative for injury, rash, and discoloration, 19:05 Constitutional: Positive for Generalized weakness, Exam: 16:49 ECG was reviewed by the Attending Physician. ms3 19:05 Constitutional: This is a well developed, well nourished patient who is awake, alert, ms3 and in no acute distress. Chest/axilla: Normal chest wall appearance and motion. Nontender with no deformity. Respiratory: Lungs have equal breath sounds bilaterally, clear to auscultation and percussion. No rales, rhonchi or wheezes noted. No increased work of breathing, no retractions or nasal flaring. 19:05 Skin: Warm, dry with normal turgor. Normal color with no rashes, no lesions, and no evidence of cellulitis. 19:05 Cardiovascular: Rate: normal, Rhythm: irregular, Pulses: no pulse deficits are appreciated, Heart sounds: normal, normal S1and S2, Vital Signs: 16:20 BP 103 / 49; Pulse 93; Resp 18; Temp 97.2; Pulse Ox 97% on R/A; Weight 136.08 kg; ph Height 5 ft. 11 in. ; 16:54 BP 111 / 63; Pulse 86; Resp 18; Pulse Ox 100% on R/A; ph 18:00 BP 115 / 64; Pulse 110; Resp 18; Pulse Ox 98% on R/A; ph 19:00 BP 124 / 53; Pulse 81; Resp 18; Pulse Ox 95% on R/A; me1 19:30 BP 109 / 69; Pulse 98; Resp 19; Pulse Ox 95% on R/A; me1 16:20 Body Mass Index 41.84 (136.08 kg, 180.34 cm) ph MDM: 16:24 Patient medically screened. ms3 19:05 Differential Diagnosis Congestive heart failure versus new onset atrial fibrillation ms3 versus electrolyte abnormality. Data reviewed: vital signs, nurses notes, lab test result(s), EKG, radiologic studies, and as a result, I will admit patient. Consideration of Admission/Observation Patient was admitted/placed on observation. Management of patient was discussed with the following: Hospitalist: Dr Fuchs. I considered the following discharge prescriptions or medication management in the emergency department Medications were administered in the Emergency Department. See MAR. Independent interpretation of the following test(s) in the Emergency Department EKG: See my EKG interpretation above X-Ray: My interpretation is Chest x-ray image reviewed by me reveals pulmonary edema. Care significantly affected by the following chronic conditions: Hypertension. Counseling: I had a detailed discussion with the patient and/or guardian regarding the historical points, exam findings, and any diagnostic results supporting the discharge/admit diagnosis, lab results, radiology results, the need for further work-up and treatment in the hospital. ED course: Discussed necessity for admission with patient and his . They understand agree with plan. All questions were answered. . 12/09 16:24 Order name: Basic Metabolic Panel; Complete Time: 17:22 ms3 12/09 16:24 Order name: CBC with Diff; Complete Time: 19:08 ms3 12/09 16:24 Order name: LFT's; Complete Time: 17:22 ms3 12/09 16:24 Order name: Magnesium; Complete Time: 17:22 ms3 12/09 16:24 Order name: NT PRO-BNP; Complete Time: 17:22 ms3 12/09 16:24 Order name: PT-INR; Complete Time: 17:22 ms3 12/09 16:24 Order name: Troponin HS; Complete Time: 17:22 ms3 12/09 18:22 Order name: Urinalysis w/ reflexes; Complete Time: 19:46 ms3 12/09 18:22 Order name: Blood Culture Adult (2) ms3 12/09 18:22 Order name: CMP; Complete Time: 21:16 ms3 12/09 18:22 Order name: Lactate w/ 2H reflex if indic.; Complete Time: 21:16 ms3 12/09 18:22 Order name: Ptt, Activated; Complete Time: 21:16 ms3 12/09 18:45 Order name: Manual Differential; Complete Time: 19:08 EDMS 12/09 19:48 Order name: Urine Culture EDMS 12/09 21:07 Order name: CBC with Automated Diff EDMS 12/09 21:07 Order name: CBC with Automated Diff EDMS 12/09 21:07 Order name: Comprehensive Metabolic Panel EDMS 12/09 21:07 Order name: Comprehensive Metabolic Panel EDMS 12/09 21:07 Order name: Troponin High Sensitivity EDMS 12/09 21:07 Order name: Troponin High Sensitivity EDMS 12/09 21:07 Order name: Troponin High Sensitivity EDMS 12/09 21:07 Order name: Troponin High Sensitivity EDMS 12/09 16:24 Order name: XRAY Chest (1 view) ms3 12/09 16:24 Order name: Cardiac monitoring; Complete Time: 16:35 ms3 12/09 16:24 Order name: EKG - Nurse/Tech; Complete Time: 17:53 ms3 12/09 16:24 Order name: IV Saline Lock; Complete Time: 16:35 ms3 12/09 16:24 Order name: Labs collected and sent; Complete Time: 16:35 ms3 12/09 16:24 Order name: O2 Per Protocol; Complete Time: 16:35 ms3 12/09 16:24 Order name: O2 Sat Monitoring; Complete Time: 16:35 ms3 12/09 18:22 Order name: Accucheck; Complete Time: 18:24 ms3 12/09 18:22 Order name: IV Saline Lock - Large Bore; Complete Time: 18:24 ms3 12/09 18:22 Order name: Vital Signs; Complete Time: 18:24 ms3 EC:49 Rate is 86 beats/min. Rhythm is irregularly irregular. Left axis deviation noted. QRS ms3 interval is normal. Clinical impression: Atrial Fibrillation. Interpreted by me. Reviewed by me. Administered Medications: 19:12 Not Given (Physician Discretion): [id number] mg IVP once; give over 2 minutes ph 20:05 Drug: Ondansetron IVP 2 mg IVP once; over 2 minutes Route: IVP; Site: right antecubital;me1 20:06 Follow up: Response: No adverse reaction; Nausea is decreased me1 20:06 Drug: Rocephin IV 1 grams IV at calculated rate once; Given slow IV push per pharmacy me1 instructions Route: IV; Rate: calculated rate; Site: right antecubital; 20:07 Follow up: Response: No adverse reaction; IV Status: Completed infusion me1 20:06 Drug: Lovenox Sub-Q 40 mg Sub-Q once Route: Sub-Q; Site: abdomen; me1 20:17 Follow up: Response: No adverse reaction me1 20:06 Drug: NS 0.9% IV 500 ml IV at bolus once Route: IV; Rate: bolus; Site: left antecubital;me1 20:06 Drug: NS 0.9% IV 1000 ml IV at 100 ml/hr once Route: IV; Rate: 100 ml/hr; Site: left me1 antecubital; Disposition Summary: 12/10/23 18:50 Hospitalization Ordered Notes: Hospitalization Status: Inpatient Admission ms3 Provider: Gatito Fuchs ms3 [facility] ms3 Condition: Stable ms3 Problem: new ms3 Symptoms: are unchanged ms3 Bed/Room Type: Standard ms3 Room Assignment: 210(12/10/23 19:13) iw Diagnosis - Anemia, unspecified ms3 - Cardiac arrhythmia, unspecified ms3 - Muscle weakness (generalized) ms3 Forms: - Medication Reconciliation Form ms3 - SBAR form ms3 - Leadership Thank You Letter ms3 Critical care time excluding procedures: 19:07 Critical care time: Bedside Care: 35 minutes, Consultation: 5 minutes, Family ms3 Intervention: 5 minutes. Total time: 45 minutes Signatures: Dispatcher [employer] Sharmaine Park RN RN Marlys Capone RN RN Phan Figueroa DO DO ms3 Migdalia Bryan RN RN me1 Corrections: (The following items were deleted from the chart) 16:24 16:24 Chest Single View+RAD.RAD.BRZ ordered. EDMS EDMS 18:23 18:23 BLOOD CULTURE*+BA.LAB.BRZ ordered. EDMS EDMS 18:23 18:23 COMPREHENSIVE METABOLIC PANEL+C.LAB.BRZ ordered. EDMS EDMS 18:23 18:23 LACTATE+C.LAB.BRZ ordered. EDMS EDMS 18:23 18:23 PTT, ACTIVATED+COAG.LAB.BRZ ordered. EDMS EDMS 19:13 18:50 ms3 iw
[2023-12-10 19:37] LABS: Specific Gravity 1.021 (1.005-1.030); Urine Bacteria <20 /HPF (<20); Urine Bilirubin NEGATIVE (Negative); Urine Blood 1+ (Negative); Urine Clarity Extremely Turbid (Clear); Urine Color Yellow (Yellow); Urine Crystals Unidentified Few /HPF (None Seen); Urine Culture Reflex Order REFLEXED; Urine Glucose NEGATIVE (Negative); Urine Ketones NEGATIVE (Negative); Urine Microscopic Reflex YN ORDER UMIC; Urine Mucus 2+ /HPF (None Seen); Urine Nitrite 2+ (Negative); Urine Protein 1+ (Negative); Urine Urobilinogen Normal (Normal); Urine WBC >50 /HPF (<5); Urine WBC Clump Few /HPF (None Seen); Urine pH 5.5 (5.0-7.0)
--- NOTE | 2023-12-10 19:53 | HP ---
Date of Admission: 12/10/2023 Chief Complaint: Weakness. History Of Present Illness: This is a 68-year-old very pleasant male patient, who was doing fine in his normal usual state of health until yesterday. He told his that he was not feeling good and no other specific complaints. Today, his condition got worse and he was having significant weakness where he was not able to get up and family called ambulance. His blood pressure was low when ambulance arrived at scene at his home with systolic blood pressure around 80 and he was given about 300 cc of IV fluid and he was brought into emergency room. In the ER, his blood pressure has been between 100 to 110 systolic. The patient is still having significant generalized weakness. He denies any cough, congestion, or any expectoration. No sore throat. No fever, chills, nausea, vomiting, constipation, or diarrhea. No abdominal pain, chest pain, or shortness of breath. After he was evaluated in the ER, he was admitted to the hospital and I did evaluate him in the emergency room. His was present with him at bedside. Allergies: NO KNOWN ALLERGIES. Medications: Aspirin 81 mg daily, triamterene/HCTZ 37.5/25 takes half a tablet daily, rosuvastatin 5 mg daily at bedtime, and nitrofurantoin 100 mg daily. Review of Systems: Constitutional: As mentioned above. Cardiovascular: Chronic leg edema. Genitourinary: The patient has chronic problems with urinary frequency, urgency, nighttime urination. All other systems reviewed and negative. Past Surgical History: Tonsillectomy, back surgery, cervical spine surgery, shoulder surgery, and knee surgery. Family History: Father , had congestive heart failure, colon cancer, and prostate cancer. Mother , had congestive heart failure. Brother with coronary artery disease, hypertension, diabetes. Social History: Significant for smoking. Use of alcohol: Negative. Past Medical History: Significant for hypertension, abdominal aortic aneurysm, hyperlipidemia, benign prostatic hypertrophy, leg edema, diverticulosis, and high PSA. Physical Examination: VITAL SIGNS: Height 5 feet inches, weight pounds, temperature , pulse , respiratory rate , blood pressure , oxygen saturation . General: Awake, alert, oriented, not in distress. HEENT: Head atraumatic, normocephalic. Conjunctivae nonerythematous. Sclerae white. Mouth, no thrush or edema noted. Ears/Nose, no mass, lesion, discharge noted. Neck: Supple. No JVD, lymph nodes, bruit, thyromegaly noted. Lungs: Bilateral good equal air entry. Clear to auscultation. No rhonchi. No rales. Heart: Normal heart sounds, no murmur or gallop. Abdomen: Soft, bowel sounds normal. No guarding, rigidity, tenderness, mass, hepatosplenomegaly, distention, or bruit noted. Extremities: The patient has bilateral grade 1 pedal edema which is chronic and unchanged from before. Skin: His skin examination on both lower extremity shows dry skin, but no evidence of any redness or warmness. No open wound. No evidence of any infection. Lymphatics: No lymph node enlargement in neck, supraclavicular, infraclavicular region. Neuro: No focal neurological deficit. Chest: Unremarkable. External Genitalia: Deferred. Rectal: Deferred. Laboratory Data: White count 21.4, hemoglobin 13.2, platelets 315. Sodium 135, potassium 4.1, chloride 105, bicarb 24, BUN 23, creatinine 1.54, glucose 136. Liver function tests unremarkable. Troponin 31.5. ProBNP 1726. Liver function tests normal. Chest x-ray shows changes of mild CHF according to radiologist's report. Urinalysis pending. EKG was reported as atrial fibrillation, but I have reviewed EKG and I am not convinced about atrial fibrillation and I will wait for the bell valet official result on the EKG. Impression: 1. Severe sepsis. 2. Rule out atrial fibrillation. 3. Acute kidney injury. 4. Hypertension. 5. Leg edema, chronic. 6. Hyperlipidemia. 7. Benign prostatic hypertrophy with lower urinary tract symptoms. 8. Diverticulosis. Plan: We will go ahead and admit the patient to hospital for further evaluation and management of this problem. The patient is appropriate for inpatient and is expected to spend 2 midnights in hospital. The patient has benign prostatic hypertrophy with lower urinary tract symptoms and he is under care of urologist on outpatient basis and I suspect urinary tract infection as probably likely underlying reason for this severe sepsis. I will wait for the urinalysis, urine culture, and blood culture was ordered to be done in emergency room and then for the patient to be started on IV antibiotic ceftriaxone 1 g IV every 12 hours. We will give 1 dose of Lovenox 40 mg subcutaneous injection x1 dose in the emergency room. I have reviewed EKG. I am not 100% convinced about atrial fibrillation and I will wait for the official cardiology result. I will go ahead and get an echo with Doppler tomorrow to evaluate left ventricular ejection fraction. We will go ahead and give IV fluid 500 cc bolus and then 100 cc/hour as a maintenance fluid will be continued and will not give fluid as per sepsis protocol due to concerns about CHF. We will repeat blood work tomorrow morning and for hypertension, he takes diuretic medication at home and we will not give any medication for blood pressure at this time until appropriate time we will consider to resume. For hyperlipidemia, he takes rosuvastatin and we will continue that per order. Starting tomorrow, we will have Physical Therapy work with him for his generalized weakness. Details and plan of treatment discussed with the patient and his who was at bedside with him in the emergency room. Total time spent was 90 minutes including review of last hospital admission record from November 23, 2023, communication with ER physician, review of current emergency room records, and performing evaluation and management for this hospital admission. ROGER/JASON Voice ID: [id number] ISABEL
[2023-12-10] MEDS ORDERED: ENOXAPARIN 40 MG/0.4 ML SQ ONE (20:00)
[2023-12-10] MEDS ORDERED: NA CHLORIDE 0.9% 1,000 ML ONE (20:00)
[2023-12-10 20:28] LABS: Albumin 3.2 g/dL (3.4-5.0); Albumin/Globulin Ratio 0.7 (1.1-1.8); Anion Gap 10.9 mEq/L (5.0-15.0); Bilirubin Total 1.1 mg/dL (0.2-1.0); Globulin 4.4 g/dL (2.3-3.5); Potassium 3.9 mEq/L (3.5-5.1); Protein, Total 7.6 g/dL (6.4-8.2)
[2023-12-10] MEDS ORDERED: ONDANSETRON 4 MG/2 ML VIAL IV PRN (21:05)
[2023-12-10 22:15] VITALS: O2SAT 95
[2023-12-10 22:43] VITALS: BMI 43.9
[2023-12-11 04:50] LABS: Absolute Basophils 0.1 K/uL (0-0.5); Absolute Lymphocytes (CBC) 1.6 K/uL (0.7-4.9); Absolute Monocytes 2.4 K/uL (0.1-1.3); Absolute Neutrophil 19.1 K/uL (1.8-8.0); Basophils % 0.5 % (0-1.3); Hematocrit 36.9 % (39.6-49.0); Hemoglobin 12.3 g/dL (13.6-17.9); Lymphocytes % 6.9 % (15.3-44.8); MCH 32.3 pg (27.0-35.0); MCHC 33.2 g/dL (32.0-36.0); MCV 97.3 fL (80-100); MPV 9.3 fL (7.6-11.3); Monocytes % 10.3 % (3.3-12.3); Neutrophils % 82.3 % (41.7-73.7); Platelets 264 thou/uL (152-406); RBC Red Blood Cell Count 3.79 M/uL (4.33-5.43); Red Cell Distribution Width 15.1 % (12.1-15.2)
[2023-12-11 05:08] LABS: Albumin 2.8 g/dL (3.4-5.0); Albumin/Globulin Ratio 0.7 (1.1-1.8); Anion Gap 8.6 mEq/L (5.0-15.0); Bilirubin Total 1.2 mg/dL (0.2-1.0); Potassium 3.6 mEq/L (3.5-5.1); Protein, Total 6.8 g/dL (6.4-8.2)
[2023-12-11] MEDS: NA CHLORIDE 0.9% 1,000 ML IV SCH (07:53)
[2023-12-11] MEDS: APIXABAN 5 MG TABLET PO SCH (07:54)
[2023-12-11] MEDS: PIPER TAZO 3.375 GM in NA CHLORIDE 0.9% 100 ML IV SCH (07:54)
[2023-12-11] MEDS: ASPIRIN EC 81 MG TAB PO SCH (09:10)
[2023-12-11] MEDS: PNEUMOCOCCAL VACCINE 0.5 ML IMVAC ONE (11:23)
[2023-12-11] MEDS: ROSUVASTATIN 10 MG TAB PO SCH (20:40)
[2023-12-11] MEDS: ACETAMINOPHEN 500 MG TAB PO PRN (20:44)
[2023-12-12 05:54] LABS: Absolute Basophils 0.2 K/uL (0-0.5); Absolute Eosinophils 0.4 K/uL (0-0.5); Absolute Lymphocytes (CBC) 1.2 K/uL (0.7-4.9); Absolute Monocytes 1.6 K/uL (0.1-1.3); Absolute Neutrophil 14.5 K/uL (1.8-8.0); Basophils % 0.9 % (0-1.3); Eosinophils % 2.3 % (0-4.4); Hematocrit 33.9 % (39.6-49.0); Lymphocytes % 6.4 % (15.3-44.8); MCH 31.5 pg (27.0-35.0); MCHC 32.5 g/dL (32.0-36.0); MCV 96.8 fL (80-100); MPV 8.7 fL (7.6-11.3); Neutrophils % 81.4 % (41.7-73.7); Platelets 238 thou/uL (152-406); Red Cell Distribution Width 15.3 % (12.1-15.2)
[2023-12-12 06:02] LABS: Albumin 2.5 g/dL (3.4-5.0); Albumin/Globulin Ratio 0.7 (1.1-1.8); Anion Gap 6.7 mEq/L (5.0-15.0); Bilirubin Total 0.5 mg/dL (0.2-1.0); Globulin 3.8 g/dL (2.3-3.5); Magnesium 2.2 mg/dL (1.6-2.4); Potassium 3.7 mEq/L (3.5-5.1); Protein, Total 6.3 g/dL (6.4-8.2)
--- NOTE | 2023-12-12 07:11 | ECHO ---
HEIGHT: 5 ft 11 in WEIGHT: 315 lb 0 oz DATE OF STUDY: 12/11/[address]: Gatito Fuchs MD 2-DIMENSIONAL: YES M.MODE: YES DOPPLER: YES COLOR FLOW: YES TDS: YES PORTABLE: YES DEFINITY: BUBBLE STUDY: DIAGNOSIS: CONGESTIVE HEART FAILURE CARDIAC HISTORY: CATHERIZATION: NO SURGERY: NO PROSTHETIC VALVE: NO PACEMAKER: NO MEASUREMENTS (cm) DIASTOLIC (NORMALS) SYSTOLIC (NORMALS) IVSd 1.2 (0.6-1.2) LA Diam 2.8 (1.9-4.0) LVEF 69% LVIDd 4.7 (3.5-5.7) LVIDs 2.9 (2.0-3.5) %FS 39% LVPWd 1.2 (0.6-1.2) Ao Diam 3.2 (2.0-3.7) 2 DIMENSIONAL ASSESSMENT: RIGHT ATRIUM: NORMAL LEFT ATRIUM: NOT WELL VISUALIZED RIGHT VENTRICLE: NORMAL LEFT VENTRICLE: NORMAL TRICUSPID VALVE: TRACE TRICUSPID REGURGITATION MITRAL VALVE: NORMAL PULMONIC VALVE: NORMAL AORTIC VALVE: NORMAL PERICARDIAL EFFUSION: NONE AORTIC ROOT: NORMAL LEFT VENTRICULAR WALL MOTION: NORMAL DOPPLER/COLOR FLOW: NORMAL COMMENTS: 1. NORMAL LEFT VENTRICULAR, EJECTION FRACTION 60-65%, NORMAL WALL MOTION 2. NORMAL DIASTOLIC DYSFUNCTION 3. NORMAL FILLING PRESSURE TECHNOLOGIST: ADALBERTO PHILIPPE
--- NOTE | 2023-12-12 14:42 | EKG ---
Test Date: 2023-12-11 Test Time: 06:45:13 Jewel Stripper: JERMAIN MEASUREMENT RESULTS: Intervals: Rate: 91 ME: QRSD: 134 QT: 412 QTc: 506 Norton: P: ME: QRS: -23 T: -4 INTERPRETIVE STATEMENTS: Atrial fibrillations with occasional premature ventricular complexes Right bundle branch block Abnormal ECG Electronically Signed On 12-12-23 14:39:53 CDT by Griffin Winters
--- NOTE | 2023-12-12 14:45 | EKG ---
Test Date: 2023-12-10 Test Time: 16:43:43 Epidemiology Investigator: PH MEASUREMENT RESULTS: Intervals: Rate: 86 UT: QRSD: 132 QT: 362 QTc: 433 Kennedy: P: UT: QRS: -31 T: 10 INTERPRETIVE STATEMENTS: Atrial fibrillation Left axis deviation Right bundle branch block Abnormal ECG Compared to ECG 11/23/2023 11:16:18 Sinus rhythm no longer present Electronically Signed On 12-12-23 14:40:59 CDT by Griffin Winters
--- NOTE | 2023-12-12 17:03 | PN ---
Date of Progress Note: 12/11/2023 Subjective: The patient was seen this morning for followup. He was feeling better compared to yeste rday. His generalized weakness has improved, and he is able to ambulate better. Objective: Vital Signs: Reviewed. HEENT: Unremarkable. Lungs: Clear to auscultation. Heart: Sounds normal. Abdomen: Soft. Bowel sounds normal. No guarding, rigidity, tenderness, distention. Extremities: Bilateral trace leg edema. Left leg lower half to lower 1/3 left leg skin is slightly pink in color and warm to touch. Vital Signs: Today, temperature 97.7, pulse 91, respiratory rate 17, blood pressure 98/45, oxygen sa turation 93%. Laboratory Data: White count 23.20, hemoglobin 12.3, platelets 264. Sodium 137, potassium 3.6, chlo ride 108, bicarb 24, BUN 25, creatinine 1.35, glucose 120. First troponin was 31.5, second troponin 68.9, third troponin 71. Impression: 1.Urinary tract infection. 2.Severe sepsis. 3.Cellulitis, left leg. 4.Elevated cardiac enzymes secondary to above. 5.Acute kidney injury. Plan: We will continue IV fluid. Continue current antibiotic. Add Zosyn per order. We will repeat blood work tomorrow. Follow up on culture results. Once culture result is available, we will decid e about culture specific antibiotic. The patient has shown atrial fibrillation on desk monitor and the EKG from this morning also shows atrial fibrillation with controlled rate, so we will go ahea d and discontinue Lovenox that he got 40 mg subcutaneous injection last night. We will discontinue t hat and start him on Eliquis 5 mg 2 times a day. We will get echo with Doppler done on him and all t hese details were discussed with the patient. I will see him tomorrow for followup. ROGER/MODL Voice ID: [id number] Report ID: [id number]
--- NOTE | 2023-12-12 17:03 | PN ---
Date of Progress Note: 12/12/2023 Subjective: The patient was seen this morning for followup. He was feeling much better compared to before. Yesterday, he ambulated very well and feels like his generalized weakness is significantly b andrea and he is not back to his normal self, but almost close as he says. Objective: Vital Signs: Reviewed. HEENT: Unremarkable. Lungs: Clear to auscultation. Heart: Sounds normal. Abdomen: Soft. Bowel sounds normal. No guarding, rigidity, tenderness, distention. Extremities: Very trace bilateral leg edema, overall much better and pink discoloration and warmness to the left leg skin that was noted yesterday, has almost completely resolved. He does have dry ski n over both lower extremities. Laboratory Data: White count 17.9, hemoglobin 11, platelets 238. Sodium 138, potassium 3.7, chlorid e 108, bicarb 27, BUN 20, creatinine 1.07, glucose 155. His last troponin yesterday was 37.7. Echoc ardiogram from yesterday shows ejection fraction 69%, normal diastolic function. Impression: 1.Severe sepsis. 2.Urinary tract infection. 3.Cellulitis, left leg. 4.Acute kidney injury. 5.Volume depletion. 6.Paroxysmal atrial fibrillation. Plan: The patient's urinary tract infection continued to be managed with antibiotic per order. Urin e culture is growing gram-negative rods. Definite identification is pending. Hopefully, it will be available over the weekend. We will continue current antibiotic for urinary tract infection as well as cellulitis of the left leg. Kidney injury and volume depletion problem has improved with IV fluid hydration. We will continue that. The patient has remained in sinus rhythm, but he did have paroxy smal atrial fibrillation earlier yesterday and he is on Eliquis now, which we will continue that. Am bulation was encouraged. I have advised him to use moisturizing skin lotion on a daily basis at home , something like Eucerin cream. I will see him tomorrow for followup, possible discharge to go home over this weekend, which can happen as early as tomorrow and all these details were discussed. The dulce esdras wants to see residential fee appraiser out of town and I will have my office with a cardiology referral. ROGER/MODL Voice ID: [id number] Report ID: [id number]
[2023-12-13 09:52] LABS: Absolute Basophils 0.1 K/uL (0-0.5); Absolute Eosinophils 0.3 K/uL (0-0.5); Absolute Lymphocytes (CBC) 0.8 K/uL (0.7-4.9); Absolute Monocytes 0.9 K/uL (0.1-1.3); Absolute Neutrophil 6.2 K/uL (1.8-8.0); Basophils % 1.2 % (0-1.3); Eosinophils % 4.1 % (0-4.4); Hematocrit 31.4 % (39.6-49.0); Hemoglobin 10.3 g/dL (13.6-17.9); Lymphocytes % 9.5 % (15.3-44.8); MCH 31.8 pg (27.0-35.0); MCHC 32.6 g/dL (32.0-36.0); MCV 97.6 fL (80-100); MPV 8.4 fL (7.6-11.3); Monocytes % 10.6 % (3.3-12.3); Neutrophils % 74.6 % (41.7-73.7); Platelets 208 thou/uL (152-406); RBC Red Blood Cell Count 3.22 M/uL (4.33-5.43); Red Cell Distribution Width 15.5 % (12.1-15.2)
[2023-12-13] MEDS: CIPROFLOXACIN 400mg IV 400 MG/200 ML BAG IV SCH (09:55)
[2023-12-13 10:05] LABS: Anion Gap 6.8 mEq/L (5.0-15.0); Potassium 3.8 mEq/L (3.5-5.1)
[2023-12-13 12:37] VITALS: BP 134/73; TEMP 98.8
--- NOTE | 2023-12-13 12:42 | DS ---
Date of Discharge: 12/13/2023 Disposition: Discharged to go home. Physical Examination: HEENT: Unremarkable. Lungs: Clear to auscultation. Heart: Sounds normal. Abdomen: Soft. Bowel sounds normal. No guarding, rigidity, tenderness, distention. Extremities: Very trace leg edema, unchanged from yesterday. Skin: Examination shows normal skin color and temperature except dry skin in the lower extremities. Laboratory Data: Urine culture result came back today, it is Pseudomonas and it is sensitive to Cipr o. For his other labs, cholesterol done during this hospitalization, triglyceride 63, total choleste rol 89, LDL 39, HDL 37. His initial troponin 31.5, second troponin 68.9, third troponin 71, and last troponin was 37. His initial chemistry, sodium 135, potassium 4.1, chloride 105, bicarb 24, BUN 23, creatinine 1.54, glucose 136. Liver function tests unremarkable. Lactic acid 1.9. ProBNP 1726. E chocardiogram shows normal ejection fraction and unremarkable echocardiogram. Upon admission, white count was 21.4, hemoglobin 13.2, platelets 315. The chest x-ray had shown changes of mild CHF. Clin ically, there was no evidence of congestive heart failure. Urinalysis was abnormal consistent with u rinary tract infection. EKG was atrial fibrillation and the patient has converted to sinus rhythm du [facility] this hospitalization. Today's CBC had shown normal white count and chemistry also showed normal renal function and normal electrolytes. Hospital Course: This is a 68-year-old pleasant male patient, came into emergency room with complain ts of generalized weakness. Please see dictated H and P for more information. After the patient was evaluated in the emergency room, he was admitted to the hospital. The patient was admitted to the [facility] with severe sepsis. Initial EKG, I was not convinced about atrial fibrillation, but subseque ntly on court monitor and repeat EKG had shown atrial fibrillation, so on the day of admission, t he patient was given 40 mg of Lovenox subcutaneous injection in the evening time and as of day after admission, we started him on Eliquis 5 mg 2 times a day. The patient did convert to normal sinus rhy thm and remained in sinus rhythm during this hospitalization. Clinically, there is no evidence of co ngestive heart failure, even the chest x-ray had shown some changes of mild congestive heart failure. Because of that concern, the patient did not get total amount of IV fluid per sepsis protocol. We did give him IV fluid 500 cc bolus in the emergency room and continue maintenance fluid at 100 cc/orlin r throughout this hospitalization and he has tolerated that very well. He had some cellulitis of lef t lower extremity and day after admission, we added Zosyn IV. His white count had gone up to 23,000 and he is responding very well. His cellulitis problem has resolved. He has lot of dry skin on his lower legs and I have advised him to use moisturizing skin lotion. He has ongoing urinary complaints and has seen a urologist, Dr. Reynolds, in the past and has appointment coming up to see him in [facility] er and he was advised to keep that appointment for his ongoing urinary complaints, where he has urina ry frequency and urgency, sometime incontinence, and in the past he did try tamsulosin and that did n ot help him, so he is no longer taking it. The patient was asked to come see me next week at office for followup and at that time we will assist him with a referral to see enhanced environmental operator as he wants to s ee someone out of town in [place] or [facility]. His generalized weakness has improved and he is ambulating well without any problem and feels like he is back to his normal self. Final Diagnoses: 1.Severe sepsis. 2.Paroxysmal atrial fibrillation. 3.Acute kidney injury. 4.Hypertension. 5.Chronic leg edema. 6.Hyperlipidemia. 7.Benign prostatic hypertrophy with lower urinary tract symptoms. 8.Diverticulosis. 9.Elevated cardiac enzyme, due to myocardial strain from severe sepsis. Discharge Medications And Instructions: 1.Walk for 5 minutes during daytime. 2.Stop aspirin. 3.Stop nitrofurantoin. 4.Continue rosuvastatin 5 mg daily at bedtime. 5.Continue triamterene/HCTZ half tablet by mouth daily. 6.Start Cipro 500 mg 2 times a day for 2 weeks and start Eliquis 5 mg 2 times a day. 7.Follow up at my office next week. 8.Follow up with Dr. Reynolds per your scheduled appointment. Total time spent today 45 minutes. ROGER/MODL Voice ID: [id number] Report ID: [id number]
== END 2023-12-13 13:43 | disposition home or self-care (01) | DRG 872 ==
LOC: ER 16:09 → 2ND 20:59
PROVIDERS: ADMIT Internal Medicine; ATTEND Internal Medicine
DX: A41.9 Sepsis, unspecified organism (principal); N17.9 Acute kidney failure, unspecified; N39.0 Urinary tract infection, site not specified; L03.116 Cellulitis of left lower limb; A41.52 Sepsis due to Pseudomonas; R65.20 Severe sepsis without septic shock; I11.0 Hypertensive heart disease with heart failure; I50.9 Heart failure, unspecified; D64.9 Anemia, unspecified; I48.0 Paroxysmal atrial fibrillation; E86.9 Volume depletion, unspecified; E78.5 Hyperlipidemia, unspecified; N40.1 Benign prostatic hyperplasia with lower urinary tract symptoms; K57.90 Diverticulosis of intestine, part unspecified, without perforation or abscess without bleeding; R60.0 Localized edema; Z23 Encounter for immunization; Z88.5 Allergy status to narcotic agent; Z79.82 Long term (current) use of aspirin
CPT/HCPCS: 36415; 71045; 80048; 80053; 80061; 80076; 81001; 83605; 83735; 83880; 84484; 85025; 85610; 85730; 87040; 87077; 87086; 87088; 87186; 90471; 90732; 93005; 93306; 96372; 96374; 96375; 97116; 97161; 97530; 99285; J0696; J0744; J1650; J1940; J2405; J2543; J7030

== ENCOUNTER 2025-01-09 09:42 | Inpatient (IN) | payer OTHER, MEDICARE ==
--- OUTSIDE RECORDS SUMMARY | 2025-01-09 10:04 | XMS REPORT | Continuity of Care Document ---
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 Name Role Phone Gatito Fuchs Attending Clinician Unavailable Payers Payer Name Policy Type Policy Number Effective Date Expirati on Date Source MEDICARE DAQUAN ANNA [id number] [facility] AARP C1 [id number] [facility] Problems Condition Name Condition Details Condition Category Status Onset Date Resolution Date Last Treatment Date Treating Clinician Comments Source [id number] Prostate nodule Problem [facility] [id number] Recurrent UTI Problem [facility] Benign prostatic hyperplasi a BPH (benign prostatic hyperplasi a) Problem [facility] [id number] Detrusor dysfunctio n Problem [facility] [id number] Detrusor instabilit y Problem [facility] [id number] Other obstructiv e and reflux uropathy Problem [facility] [id number] Cancer of prostate with intermedia te recurrence risk (stage T2b-c or Plain 7 or PSA 10-20) Problem [facility] [id number] Urinary incontinen ce, unspecifie d type Problem [facility] [id number] Benign prostatic hyperplasi a with lower urinary tract symptoms Problem [facility] [id number] Elevated PSA Problem [facility] Incomplete bladder emptying Incomplete emptying of bladder Problem [facility] [id number] Lower urinary tract symptoms (LUTS) Problem [facility] Allergies, Adverse Reactions, Alerts Allergy Name Allergy Type Status Severity Reaction(s) Onset Date Inactive Date Treating Clinician Comments Source No Known Drug Allergie s DA Active U 12-15 00:00: 00 [facility] codeine DA Active ME 09-29 00:00: 00 [facility] No Known Allergie s DA Active U 09-14 00:00: 00 [facility] codeine DA Active ME 09-14 00:00: 00 [facility] Active Unknown [facility] Social History Social Habit Start Date Stop Date Quantity Comments Source Sex Assigned At [facility] History of Tobacco Use Current Smoker [facility] Smoking Status Start Date Stop Date Source Current Smoker 2024-11-02 00:00:00 [facility] Medications Ordered Medication Name Filled Medication Name Start Date Stop Date Current Medication? Ordering Clinician Indication Dosage Frequency Signature (SIG) Comments Components Source cefTRIAXone Sodium cefTRIAXone Sodium 10-14 00:00: 00 No 1000mg [facility] Myrbetriq 25 MG Myrbetriq 25 MG 2- 00:00: 00 No 1{table t} QD Myrbetriq 25 MG Flomax 0.4 MG Flomax 0.4 MG 2023-04 0-14 00:00: 00 No 2{capsu les} QD Flomax 0.4 MG Rosuvastati n Calcium 10 MG Rosuvastati n Calcium 10 MG No 1{table t} QD Rosuvastat in Calcium 10 MG Allergy Relief 4 MG Allergy Relief 4 MG No 1{table t_as_ne eded} QID Allergy Relief 4 MG Triamterene -HCTZ 37.5-25 MG Triamterene -HCTZ 37.5-25 MG No 1{table t_in_th e_morni ng} QD Triamteren e-HCTZ 37.5-25 MG Xarelto 10 MG Xarelto 10 MG No 1{table t_with_ food} QD Xarelto 10 MG Vital Signs Vital Name Observation Time Observation Value Comments S brodiece height 2024-11-02 14:15:00 73 [in_i] Commo n [facility] weight 2024-11-02 14:15:00 323.6 [lb_av] Co mmon [facility] temperature 2024-11-02 14:15:00 98.1 [degF] Com [facility] bmi 2024-11-02 14:15:00 42.69 kg/m2 Comm on [facility] oximetry 2024-11-02 14:15:00 91 % Commo n [facility] respiratory rate 2024-11-02 14:15:00 18 /min Common [facility] blood pressure systolic 2024-11-02 14:15:00 121 mm[Hg] [facility] blood pressure diastolic 2024-11-02 14:15:00 67 mm[Hg] Common [facility] height 2024-10-14 14:15:00 73 [in_i] Commo n [facility] weight 2024-10-14 14:15:00 321 [lb_av] Comm on [facility] temperature 2024-10-14 14:15:00 98.6 [degF] Com [facility] bmi 2024-10-14 14:15:00 42.35 kg/m2 Comm on [facility] oximetry 2024-10-14 14:15:00 99 % Commo n [facility] respiratory rate 2024-10-14 14:15:00 18 /min Common [facility] blood pressure systolic 2024-10-14 14:15:00 140 mm[Hg] [facility] blood pressure diastolic 2024-10-14 14:15:00 76 mm[Hg] [facility] height 2024-09-09 14:30:00 73 [in_i] Commo n [facility] weight 2024-09-09 14:30:00 321 [lb_av] Comm on [facility] bmi 2024-09-09 14:30:00 42.35 kg/m2 Comm on [facility] blood pressure systolic 2024-09-09 14:30:00 140 mm[Hg] Common [facility] blood pressure diastolic 2024-09-09 14:30:00 73 mm[Hg] [facility] height 2024-07-26 15:00:00 73 [in_i] Commo n [facility] weight 2024-07-26 15:00:00 324 [lb_av] Comm on [facility] temperature 2024-07-26 15:00:00 97.7 [degF] Com mon [facility] bmi 2024-07-26 15:00:00 42.74 kg/m2 Comm on [facility] oximetry 2024-07-26 15:00:00 97 % Commo n [facility] respiratory rate 2024-07-26 15:00:00 18 /min Common [facility] blood pressure systolic 2024-07-26 15:00:00 139 mm[Hg] Common [facility] blood pressure diastolic 2024-07-26 15:00:00 68 mm[Hg] Common [facility] height 2024-06-09 11:30:00 73 [in_i] Commo n [facility] weight 2024-06-09 11:30:00 321 [lb_av] Comm on [facility] temperature 2024-06-09 11:30:00 98.2 [degF] Com mon [facility] bmi 2024-06-09 11:30:00 42.35 kg/m2 Comm on [facility] oximetry 2024-06-09 11:30:00 99 % Commo n [facility] respiratory rate 2024-06-09 11:30:00 18 /min Common [facility] blood pressure systolic 2024-06-09 11:30:00 146 mm[Hg] [facility] blood pressure diastolic 2024-06-09 11:30:00 80 mm[Hg] Common [facility] height 2024-02-26 14:45:00 73 [in_i] Commo n [facility] weight 2024-02-26 14:45:00 300.0 [lb_av] Co mmon [facility] temperature 2024-02-26 14:45:00 98.3 [degF] Com [facility] bmi 2024-02-26 14:45:00 39.58 kg/m2 Comm on [facility] oximetry 2024-02-26 14:45:00 94 % Commo n [facility] respiratory rate 2024-02-26 14:45:00 18 /min Common [facility] blood pressure systolic 2024-02-26 14:45:00 141 mm[Hg] [facility] blood pressure diastolic 2024-02-26 14:45:00 76 mm[Hg] Common [facility] height 2024-01-26 13:30:00 73 [in_i] Commo n [facility] weight 2024-01-26 13:30:00 305 [lb_av] Comm on [facility] temperature 2024-01-26 13:30:00 97 [degF] Comm on [facility] bmi 2024-01-26 13:30:00 40.24 kg/m2 Comm on [facility] oximetry 2024-01-26 13:30:00 99 % Commo n [facility] respiratory rate 2024-01-26 13:30:00 18 /min Common [facility] blood pressure systolic 2024-01-26 13:30:00 116 mm[Hg] [facility] blood pressure diastolic 2024-01-26 13:30:00 75 mm[Hg] [facility] height 2021-04-30 13:00:00 73 [in_i] Commo n [facility] weight 2021-04-30 13:00:00 278 [lb_av] Comm on [facility] temperature 2021-04-30 13:00:00 98.3 [degF] Com [facility] bmi 2021-04-30 13:00:00 36.67 kg/m2 Comm on [facility] oximetry 2021-04-30 13:00:00 97 % Commo n [facility] respiratory rate 2021-04-30 13:00:00 18 /min Common [facility] blood pressure systolic 2021-04-30 13:00:00 154 mm[Hg] [facility] blood pressure diastolic 2021-04-30 13:00:00 89 mm[Hg] Common [facility] height 2021-03-21 13:15:00 73 [in_i] Commo n [facility] weight 2021-03-21 13:15:00 278 [lb_av] Comm on [facility] temperature 2021-03-21 13:15:00 97.7 [degF] Com mon [facility] bmi 2021-03-21 13:15:00 36.67 kg/m2 Comm on [facility] oximetry 2021-03-21 13:15:00 97 % Commo n [facility] respiratory rate 2021-03-21 13:15:00 18 /min Common [facility] blood pressure systolic 2021-03-21 13:15:00 140 mm[Hg] [facility] blood pressure diastolic 2021-03-21 13:15:00 84 mm[Hg] Common [facility] height 2021-02-28 08:00:00 73 [in_i] Commo n [facility] weight 2021-02-28 08:00:00 273.4 [lb_av] Co mmon [facility] temperature 2021-02-28 08:00:00 96.5 [degF] Com mon [facility] bmi 2021-02-28 08:00:00 36.07 kg/m2 Comm on [facility] oximetry 2021-02-28 08:00:00 92 % Commo n [facility] blood pressure systolic 2021-02-28 08:00:00 133 mm[Hg] [facility] blood pressure diastolic 2021-02-28 08:00:00 80 mm[Hg] [facility] Procedures Procedure Date / Time Performed Performing Clinicia n Source PVR 2024-07-26 00:00:00 [facility] PVR 2024-01-26 00:00:00 [facility] Encounters Start Date/Time End Date/Time Encounter Type Admission Type Attending Clinicians Care Facility Care Department Encounter ID Source 2024-01-26 13:29[facility] [id number] [facility] 2021-06-08 14:27:02 Outpatient Gatito Fuchs [facility] [id number] [facility] 2021-05-09 14:14:14 Outpatient Fuchs, Gatito [facility] [id number] [facility] 2021-05-09 13:27:34 Outpatient Fuchs, Gatito [facility] [id number] [facility] 2021-05-09 13:07:05 Outpatient Fuchs, Gatito [facility] [id number] [facility] 2024-11-15 00:00:00 2024-11-15 00:00:00 (TEL) [facility] [id number] [facility] 2024-11-02 00:00:00 2024-11-02 00:00:00 OFFICE VISIT ESTAB PT LEVEL 5 [facility] [id number] [facility] 2024-10-18 00:00:00 2024-10-18 00:00:00 (TEL) [facility] [id number] [facility] 2024-10-18 00:00:00 2024-10-18 00:00:00 (TEL) [facility] [id number] [facility] 2024-10-14 00:00:00 2024-10-14 00:00:00 (PROC) Procedure [facility] [id number] [facility] 2024-09-09 00:00:00 2024-09-09 00:00:00 OFFICE VISIT ESTAB PT LEVEL 4 [facility] [id number] [facility] 2024-08-24 00:00:00 2024-08-24 00:00:00 (NV) Nurse Visit [facility] ST[facility] [id number] [facility] 2024-07-26 00:00:00 2024-07-26 00:00:00 OFFICE VISIT ESTAB PT LEVEL 4 [facility] [id number] [facility] 2024-06-09 00:00:00 2024-06-09 00:00:00 OFFICE VISIT ESTAB PT LEVEL 4 [facility] [id number] [facility] 2024-05-12 00:00:00 2024-05-12 00:00:00 (PROC) Procedure [facility] ST[facility] [id number] [facility] 2024-02-26 00:00:00 2024-02-26 00:00:00 OFFICE VISIT ESTAB PT LEVEL 4 [facility] [id number] [facility] 2024-02-26 00:00:00 2024-02-26 00:00:00 (TEL) [facility] [id number] [facility] 2024-02-03 00:00:00 2024-02-03 00:00:00 (TEL) STLMLC ST[facility] [id number] [facility] 2024-01-26 00:00:00 2024-01-26 00:00:00 OFFICE VISIT NEW PT LEVEL 4 [facility] [id number] [facility] 2021-08-29 00:00:00 2021-08-29 00:00:00 (TEL) [facility] [id number] [facility] 2021-06-18 00:00:00 2021-06-18 00:00:00 (TEL) [facility] [id number] [facility] 2021-04-30 00:00:00 2021-04-30 00:00:00 OFFICE VISIT ESTAB PT LEVEL 2 [facility] ST[facility] [id number] [facility] 2021-03-23 00:00:00 2021-03-23 00:00:00 (TEL) STLMLC ST[facility]C [id number] [facility] 2021-03-21 00:00:00 2021-03-21 00:00:00 OFFICE VISIT EST PT LEVEL 3 [facility] [id number] [facility] 2021-02-28 00:00:00 2021-02-28 00:00:00 OFFICE VISIT EST PT LEVEL 3 [facility] [id number] [facility] Results Test Description Test Time Test Comments Results Result Co mments Source FASTING:[facility]ER[facility]A, [id number] 03:16:00* Test Item Value Reference Range Interpretation Comme nts PSA, TOTAL (test code = 58883237) 5.71 ng/mL <=4.00 H The total PSA v alue from this assay system is standardized against the WHO standard. The test result will be approximately 20% lower when compared to the equimolar-standardized total PSA (Stephanie Rufus). Comparison of serial PSA results should be interpreted with this fact in mind. This test was performed using the Siemens chemiluminescent method. Values obtained from different assay methods cannot be usedinterchangeably. PSA levels, regardless ofvalue, should not be interpreted as absoluteevidence of the presence or absence of disease. FASTING:[facility] CANCERLIPID [id number] 03:16:00* Test Item Value Reference Range Interpretation Comme nts CHOLESTEROL, TOTAL (test code = 41936975) 105 mg/dL <200 N HDL CHOLESTEROL (test code = 49851518) 35 mg/dL >=40 L TRIGLYCERIDES (test code = 27274464) 86 mg/dL <150 N LDL-CHOLESTEROL (test code = 26046258) 53 mg/dL (calc) N Reference range: <100 Desirable range <100 mg/dL for primary prevention; <70 mg/dL for patients with CHD or diabetic patients with > or = 2 CHD risk factors. LDL-C is now calculated using the Jonathan-Jorgensen calculation, which is a validated novel method providing better accuracy than the Friedewald equation in the estimation of LDL-C. Jonathan SS et al. LASHELL. 2013;310(19): 5701-2967 (http://education.Druva.iLyngo /faq/MCZ552) CHOL/HDLC RATIO (test code = 51528220) 3.0 (calc) <5.0 N NON HDL CHOLESTEROL (test code = 68738321) 70 mg/dL (calc) <130 N For patients with diabetes plus 1 major ASCVD risk factor, treating to a non-HDL-C goal of <100 mg/dL (LDL-C of <70 mg/dL) is considered a therapeutic option. FASTING:[facility] CANCERCOMP META [id number] 03:16:00* Test Item Value Reference Range Interpretation Comme nts GLUCOSE (test code = 78594949) 97 mg/dL 65-99 N Fasting referenc e interval UREA NITROGEN (BUN) (test code = 72251598) 17 mg/dL 7-25 N CREATININE (test code = 82488848) 0.86 mg/dL 0.70-1.35 N EGFR (test code = 79305251) 94 mL/min/1.73m2 >=60 N BUN/CREATININE RATIO (test code = 25032487) SEE NOTE: (calc) 6-22 N Not Reported: BUN and Creatinine are within reference range. SODIUM (test code = 59032496) 139 mmol/L 135-146 N POTASSIUM (test code = 26349244) 4.4 mmol/L 3.5-5.3 N CHLORIDE (test code = 23425064) 105 mmol/L 98-110 N CARBON DIOXIDE (test code = 83722937) 27 mmol/L 20-32 N CALCIUM (test code = 71020050) 9.1 mg/dL 8.6-10.3 N PROTEIN, TOTAL (test code = 04029987) 6.3 g/dL 6.1-8.1 N ALBUMIN (test code = 58022985) 3.8 g/dL 3.6-5.1 N GLOBULIN (test code = 21442515) 2.5 g/dL (calc) 1.9-3.7 N ALBUMIN/GLOBULIN RATIO (test code = 72180897) 1.5 (calc) 1.0-2.5 N BILIRUBIN, TOTAL (test code = 09772155) 0.6 mg/dL 0.2-1.2 N ALKALINE PHOSPHATASE (test code = 45373608) 60 U/L 35-144 N AST (test code = 62191397) 16 U/L 10-35 N ALT (test code = 21705368) 13 U/L 9-46 N [id number] 03:16:00* Test Item Value Reference Range Interpretation Comme nts HEMOGLOBIN A1c (test code = 64804924) 6.0 % <5.7 H For someone wit hout known diabetes, a hemoglobin A1c value between 5.7% and 6.4% is consistent withprediabetes and should be confirmed with a follow-up test. For someone with known diabetes, a value <7%indicates that their diabetes is well controlled. P1bfnmsemu should be individualized based on duration ofdiabetes, age, comorbid conditions, and otherconsiderations. This assay result is consistent with an increased riskof diabetes. Currently, no consensus exists regarding use ofhemoglobin A1c for diagnosis of diabetes for children. FASTING:[facility]2025-08-27 03:16:00* Test Item Value Reference Range Interpretation Comme nts MAGNESIUM (test code = 69090202) 2.2 mg/dL 1.5-2.5 N FASTING:[place] [id number] 03:16:00* Test Item Value Reference Range Interpretation Comme nts TSH (test code = 92565020) 2.17 mIU/L 0.40-4.50 N FASTING:[facility] XR KNEE 1 OR 2 V [id number] 10:53:00 Patient Name: GIRMA RABAGO Unit No: [id number] EXAMS: CPT CODE: [id number] XR KNEE 1 OR 2 [place] RT [address]25 RIGHT KNEE 2 VIEWS PORTABLE COMMENT: The patient is status post joint replacement which is articulating normally. at 1053 Reported and signed by: Colt Otero MD CC: Rohith Rajput MD Technologist: JUAN DOAN (RT.R) Transcribed D/ (1053) tANGEL [facility] NAME: GIRMA RABAGO [address] [facility] PHYS: Rohith Holland MD : 1955 AGE: 63 SEX: M [place], [place] [address] LOC: RICKYU PHONE #: [phone] EXAM DATE: 12/15/2018 STATUS: [facility] FAX #: RAD #: D/C DT PAGE 1 Signed Report Patient Name: GIRMA RABAGO Unit No: [id number] EXAMS: CPT CODE: [id number] XR KNEE 1 OR 2 V RT 04747 (Continued) Orig Print D/T: S: 12/17/2018 (1057) [facility] NAME: GIRMA RABAGO [address] [facility] [address] PHYS: Rohith Holland MD : 1955 AGE: 63 SEX: M [place], [place] [address] LOC: KAUSHAL PHONE #: [phone] EXAM DATE: 12/15/2018 STATUS: DEP SDC FAX #: [phone] RAD #: D/C DT PAGE 2 Signed ReportBASIC METABOLIC [id number] 06:53:00* Test Item Value Reference Range Interpretation Comme nts SODIUM (test code = NA) 141 mmol/L 136-145 N POTASSIUM (test code = K) 4.6 mmol/L 3.5-5.1 N CHLORIDE (test code = CL) 108.0 mmol/L 98-107 H CARBON DIOXIDE (test code = CO2) 22.8 mmol/L 21-32 N GLUCOSE (test code = GLU) 142 mg/dL 70-110 H BLOOD UREA NITROGEN (test code = BUN) 18 mg/dL 7-18 N GLOMERULAR FILTRATION RATE (test code = GFR) 92.6 >60 Unit of m easure: mL/min/1.73 n5Jhzmudlmg Range:Healthy Adults >90 mL/min/1.73 m2 For Chronic Kidney Disease: Stage II Mild Decrease in GFR 60-90 Stage III Moderate Decrease in GFR 30-59 Stage IV Severe Decrease in GFR 15-29 Stage V Kidney Failure <15 CREATININE (test code = CREAT) 0.84 mg/dL 0.55-1.30 N CALCIUM (test code = CA) 8.4 mg/dL 8.2-10.1 N HGB [id number] 06:20:00* Test Item Value Reference Range Interpretation Comme nts HEMOGLOBIN (test code = HGB) 11.5 g/dL 12-16 L HEMATOCRIT (test code = HCT) 35.4 % 37-47 L [id number] 09:17:00* Test Item Value Reference Range Interpretation Comme nts ISTAT-HEMOGLOBIN (test code = HBP) 15.0 g/dL 12-16 N ISTAT-HEMATOCRIT (test code = HCTP) 44 % 38-51 N ISTAT-SODIUM (test code = NAP) 142 mmol/L 138-146 N ISTAT-POTASSIUM (test code = KP) 4.4 mmol/L 3.5-4.9 N ISTAT-CHLORIDE (test code = CLP) 108 mmol/L 98-109 N ISTAT-GLUCOSE (test code = GLUP) 99 mg/dL 70-105 N ISTAT-BUN (test code = BUN-P) 14 mg/dL 8-26 N - XR KNEE 1 OR 2 V [id number] 14:14:00Patient Name: GIRMA RABAGO Unit No: [id number] EXAMS: CPT CODE: [id number] XR KNEE 1 OR 2 [place] [address] AP AND LATERAL VIEW OF THE LEFT KNEE COMMENT: Patient is status post total left knee arthroplasty. The prosthesis appears to be in good position. No evidence of periprosthetic fracture. at 1414 Reported and signed by: Nate Bradshaw MD CC: Rohith Rajput MD Technologist: JUAN DOAN (RT.R) Transcribed D/ (3760) AhsanGVG [facility] NAME: GIRMA RABAGO [address] [facility] PHYS: Mat Holland MD : 1955 AGE: 63 SEX: M [place], [place] [address] LOC: YCharleneDSU PHONE #:[phone] EXAM DATE: 09/29/2018 STATUS: [facility] FAX #: [phone] RAD #: D/C DT PAGE 1 Signed R eport Patient Name: GIRMA RABAGO Unit No: [id number] EXAMS: CPT CODE: [id number] XR KNEE 1 OR 2V LT 8[address]07 (Continued) Orig Print D/T: S: 09/30/2018 (1417) [facility] NAME: GIRMA RABAGO [address] [facility] PHYS: Rohith Holland MD : 1955 AGE: 63 SEX: M [place], [place] [address] LOC: Y.DSU PHONE #: [phone] EXAM DATE: 09/29/2018 STATUS: [facility] FAX #: [phone] RAD #: D/C DT PAGE 2 Signed ReportHGB HCT 2018-09-30 05:51:00* Test Item Value Reference Range Interpretation Comme nts HEMOGLOBIN (test code = HGB) 12.0 g/dL 12-16 N HEMATOCRIT (test code = HCT) 36.8 % 37-47 L COMPREHENSIVE METABOLIC [id number] 11:25:00* Test Item Value Reference Range Interpretation Comme nts SODIUM (test code = NA) 141 mmol/L 136-145 N POTASSIUM (test code = K) 4.2 mmol/L 3.5-5.1 N CHLORIDE (test code = CL) 107.0 mmol/L 98-107 N CARBON DIOXIDE (test code = CO2) 24.1 mmol/L 21-32 N GLUCOSE (test code = GLU) 96 mg/dL 70-110 N BLOOD UREA NITROGEN (test code = BUN) 18 mg/dL 7-18 N GLOMERULAR FILTRATION RATE (test code = GFR) 76.6 >60 Unit of m easure: mL/min/1.73 m8Emzreswlh Range:Healthy Adults >90 mL/min/1.73 m2 For Chronic Kidney Disease: Stage II Mild Decrease in GFR 60-90 Stage III Moderate Decrease in GFR 30-59 Stage IV Severe Decrease in GFR 15-29 Stage V Kidney Failure <15 CREATININE (test code = CREAT) 0.99 mg/dL 0.55-1.30 N TOTAL PROTEIN (test code = PROT) 6.4 g/dL 6.4-8.2 N ALBUMIN (test code = ALB) 3.5 g/dL 3.4-5.0 N GLOBULIN (test code = GLOB) 2.9 g/dL 2.2-4.2 N ALBUMIN/GLOBULIN RATIO (test code = A/G) 1.2 0.7-2.0 N CALCIUM (test code = CA) 8.7 mg/dL 8.2-10.1 N BILIRUBIN TOTAL (test code = BILT) 0.38 mg/dL 0.2-1.00 N SGOT/AST (test code = AST) 15.0 U/L 15-37 N SGPT/ALT (test code = ALT) 23.0 U/L 12-78 N Please note new normal range. ALKALINE PHOSPHATASE TOTAL (test code = ALKP) 78 U/L 46-116 N CBC W/AUTO [id number] 10:44:00* Test Item Value Reference Range Interpretation Comme nts WHITE BLOOD CELL (test code = WBC) [...] 27-34 N MEAN CELL HGB CONCENTRATION (test code = MCHC) 32.9 g/dL 30.8-34.1 N RED CELL DISTRIBUTION WIDTH (test code = RDW) 14.1 % 11-16 N PLT (test code = PLT) 282 K/mm3 130-400 N MEAN PLATELET VOLUME (test c ode = MPV) 11.5 fL 8.9-12.1 N NEUTROPHIL % (test code = NT%) 67.9 [...] K/mm3 0.02-0.10 N MANUAL DIFF REQUIRED (test c ode = MDIFF) NO MANUAL DIFF NUCLEATED RED BLOOD CELL (te st code = NRBC) 0 % 0-0 N Notes Date/Time Note Provider Source 2018-12-16 10:42:00 [facility] Clinical Note REPORT#:[id number] REPORT STATUS: Signed DATE:12/16/18 TIME: 1041 PATIENT: GIRMA RABAGO UNIT #: [id number] [facility] AGE: 63 SEX: M ATTEND: Rohith Rajput MD ADM AUTHOR: Aron Jordan MD * ALL edits or amendments must be made on the electronic/computer document * Clinical Note Note: [facility] Aron Gallardo M.D. (cell text [phone]) Assessment/Plan 1.) Anemia of acute blood loss- .Hgb 11.5, asymptomatic. 2.) S/p Right TKA- .acute pain control. Anticoagulation as per Dr. Rajput. 3.) OsteoArthritis- .symptomatic treatment. 4.) Tobacco Use- .counseling on tobacco abstinence to be provided. * OK for DISCHARGE per Internal Medicine. Prior Events/Overnight: Uneventful. Chief Complaint: No significant complaints. Objective Laboratory Tests: 12/17 411 Chemistry Sodium (136 - 145 mmol/L) 141 Potassium (3.5 - 5.1 mmol/L) 4.6 Chloride (98 - 107 mmol/L) 108.0 H Carbon Dioxide (21 - 32 mmol/L) 22.8 BUN (7 - 18 mg/dL) 18 Creatinine (0.55 - 1.30 mg/dL) 0.84 Glomerular Filtr Rate (>60) 92.6 Glucose (70 - 110 mg/dL) 142 H Calcium (8.2 - 10.1 mg/dL) 8.4 Hematology Hgb (12 - 16 g/dL) 11.5 L Hct (37 - 47 %) 35.4 L Gen: Alert, oriented, in mild discomfort Neck: No Masses, No Thyromegaly- CV: Regular Rate Rhythm / Edema- no significant Resp: Clear To Ascultation / Normal Respiratory Effort ABD: NonTender / NonDistended MS/Skin: No Cyanosis / No nodules / +Ankle DF/PF / nl capillary refill of toes. Other: Labs/X-ray: Laboratory Tests: 09/04 0412 Chemistry Sodium (136 - 145 mmol/L) 141 Potassium (3.5 - 5.1 mmol/L) 4.6 Chloride (98 - 107 mmol/L) 108.0 H Carbon Dioxide (21 - 32 mmol/L) 22.8 BUN (7 - 18 mg/dL) 18 Creatinine (0.55 - 1.30 mg/dL) 0.84 Glomerular Filtr Rate (>60) 92.6 Glucose (70 - 110 mg/dL) 142 H Calcium (8.2 - 10.1 mg/dL) 8.4 Hematology Hgb (12 - 16 g/dL) 11.5 L Hct (37 - 47 %) 35.4 L Aron Gallardo M.D. at 1137 RPT #:[id number] END OF REPORT [facility] 2018-12-16 09:13:00 [facility] ([facility]) Discharge Summary REPORT#:[id number] REPORT STATUS: Signed DATE:12/16/18 TIME: 912 PATIENT: GIRMA RABAGO UNIT #: [id number] ROOM/BED: : 56 AGE: 63 SEX: M ATTEND: Rohith Rajput MD ADM AUTHOR: Rohith Rajput MD * ALL edits or amendments must be made on the electronic/computer document * PCP PCP Discharge to: home General Information Date of discharge: 12/16/18 Hospital course: ADMISSION DATE: 12/15/2018 DISCHARGE DATE: 12/16/2018 ADMITTING DIAGNOSIS: Right knee osteoarthropathy. PRIMARY DISCHARGE DIAGNOSIS: Right knee osteoarthropathy, M17.11. OPERATIVE PROCEDURES PERFORMED: On 12/15/2018, right total knee arthroplasty, 37344. HISTORY OF PRESENT ILLNESS: Mr. Rabago is a very pleasant 63-year-old male with severe and progressive pain involving his right knee. His pain is occurring with daily activities. His pain has been refractory to extensive nonoperative intervention. Due to his progressive disability and lack of response to nonoperative treatment, he is admitted for right total knee arthroplasty. HOSPITAL COURSE: Mr. Rabago was taken to the operative suite on the date of admission where he underwent a right total knee arthroplasty without complications. Postoperatively, the patient received a total of 24 hours of IV antibiotic therapy. On the date of discharge, he is weightbearing as tolerated. His dressing is dry and intact. His neurovascular status is intact. His hemoglobin is 11.5 and he is completely asymptomatic. Mr. Rabago will be discharged to home today. He is on compressive stockings as well as aspirin for DVT prophylaxis. Outpatient physiotherapy has been prescribed. Office followup will be in 2 weeks. DISCHARGE MEDICATIONS: Please see discharge medication reconciliation sheet. CONDITION ON DISCHARGE: The patient is being discharged today as he has significantly exceeded preoperative expectations. He is in stable condition at the time of discharge without questions or complaints. Med Rec Med Rec Discharge meds: Continue taking these medications: traMADol/APAP (ULTRACET 37.5/325 MG) 1 TAB TAB 1 TABLET ORAL EVERY 6 HOURS NEEDED. as needed for PAIN Qty = 50 Instructions: TAKE 1-2 TABS EVERY 6-8 HOURS NEEDED FOR PAIN KETOROLAC (TORADOL) 10 MG TAB 10 MILLIGRAM ORAL EVERY 6 HOURS NEEDED. as needed for PAIN Qty = 20 Instructions: TAKE 1 TAB EVERY 6 HOURS NEEDED FOR PAIN FOR 5 DAYS Discharge Instructions Wound/dressing care: Keep wound clean and dry, FOLLOW DR. RAJPUT'S DISCHARGE INSTRUCTIONS Equipment/supplies: Walker Follow-up Appointments PCP: PCP: No Primary or Family Physician Attending Physician: Attending Physician: Rohith Rajput MD Follow up: In 1-2 weeks Special instructions: CALL TO SCHEDULE FOLLOW UP APPOINTMENT. at 1553 [facility] #:[id number] END OF REPORT [facility] 2018-12-15 18:14:00 [facility] ([facility]) Clinical Note REPORT#:[id number] REPORT STATUS: Signed DATE:12/15/18 TIME: 1813 PATIENT: GIRMA RABAGO UNIT #: [id number] ROOM/BED: [facility] : 56 AGE: 63 SEX: M ATTEND: Rohith Rajput MD ADM AUTHOR: Aron Jordan MD * ALL edits or amendments must be made on the electronic/computer document * Clinical Note Note: [facility] Aron Gallardo MD (cell text [phone]) Internal Medicine Consult at request of : Dr Rohith Rajput Chief Complaint: Right knee pain HPI: 63 yo M is now s/p Right total knee arthroplasty (TKA) by Dr. Rajput. Mr. Rabago relates years of progressive right knee pain (recently severe), worse with activity, and achy and stiff at times in quality. He has failed conservative management. He had a Left TKA by Dr. Rajput on 09/29/18. Comorbidities: see below. PmHx: .Osteoarthritis, Current every day smoker ALLERGY: Allergies: No Known Drug Allergies (Coded, 12/15/18) codeine (Coded, Mild, HYPERACTIVE BEHAVIOR, 09/29/18) Home Medications: Home Medications: No Known Home Medications SgHx: .Left TKA, Right knee meniscus, Left ACL repair, Left shoulder SHx: Tob: none FHx: .No significant hx of DVT/PE. Alcohol: none Drugs: none Lives: with spouse Vitals: Vital Signs Date Temp Pulse Resp B/P B/P Mean Pulse Ox FiO2 12/15 97.0-98.1 67-89 12-20 106-138/56-77 81.1-91.0 95-100 Gen: Alert, in mild discomfort, nl nutrition. Sitting up in chair - complaining of some right leg weakness EYE: Nl lids conjunctiva. ENT: Nl ears Nose, nl lips,. Neck: Supple, nl thyroid, No masses. CV: Regular Rate Rhythm, no heave or significant murmur. Edema- none Feet toes normal temperature. RESP: Clear to Auscultation, normal Respiratory effort. ABD: Soft, NonDistended,. LYM: No significant cervical Lymphadenopathy. MS: No Clubbing, cyanosis, Knee is wrapped, NEURO: Nonfocal, grossly normal sensation of LE, +Ankle DF/PF, able to flex and extend knee while sitting - states he gets weak with standing. . Preop Labs(09/14/18): CBC:. Hgb 12, Plt 282, CHEM: Na 141, K 4.4, Cr 0.99 (eGFR 76.6%), . (medium to high risk of complications or morbidity) (major surgery) (IV sedative, meds) Assessment Plan 1.) Anemia of Acute Blood Loss- .will recheck 12/16/18. 2.) S/p Right TKA- .acute pain control. Anticoagulation as per Dr. Rajput. 3.) OsteoArthritis- .symptomatic treatment. 4.) Tobacco Use- .counseling on tobacco abstinence to be provided. Aron Gallardo M.D. Thanks! at 2209 [facility] #:[phone] END OF REPORT [facility] 2018-12-15 15:41:00 [id number] [facility] [address] [address] PATIENT NAME: GIRMA RABAGO ADMIT DATE: 12/15/18 ACCOUNT NO: [id number] ROOM NO: Y.505 AGE: 63 REPORT TYPE: OPERATIVE REPORT SEX: M ADMITTING PHYSICIAN: ATTENDING PHYSICIAN:Rohith Rajput MD OPERATION DATE: 12/15/2018 PREOPERATIVE DIAGNOSIS: Right knee osteoarthritis. POSTOPERATIVE DIAGNOSIS: Right knee osteoarthritis, M17.11. PROCEDURE PERFORMED: Right total knee arthroplasty, 65661. IMPLANTS UTILIZED: DePuy Attune total knee system, size 7 right posterior stabilized femur, size 9 mobile-bearing tibial tray, 7 x 5 mm rotating platform posterior stabilized tibial insert, and 41-mm oval patella. All components cemented. ANESTHESIA: General. TOURNIQUET TIME: 23 minutes. ESTIMATED BLOOD LOSS: Less than 25 mL. SURGEON: Rohith Rajput MD HAIR COLORIST: LAKESHIA Snow CLINICAL INDICATIONS: Mr. Rabago is a 63-year-old male from [place], [place], who is having progressive and severe pain involving his right knee. He is experiencing pain on a daily basis. His pain has been refractory to extensive nonoperative treatment. His clinical as well as radiographic evaluation revealed severe tricompartmental arthritis of the right knee. Due to disabling pain and lack of response to nonoperative intervention, he is admitted for right total knee arthroplasty. PROCEDURE IN DETAIL: RIGHT TOTAL KNEE ARTHROPLASTY, 55516. Mr. Rabago was brought to the operative suite, at which time, he was placed in supine position on OR table. Routine monitors were established. General anesthesia was delivered. After satisfactory induction of general anesthesia, a tourniquet was applied to the patient's right lower extremity per Ms. Sharp and the right leg was circumferentially prepped and draped in usual sterile fashion per Ms. Sharp. The leg was then elevated, exsanguinated, the tourniquet was insufflated to 300 mmHg. The knee was flexed to 100 degrees. Anterior midline incision was performed. Medial parapatellar arthrotomy was performed. Patella was everted laterally. Severe grade IV changes noted through all three PATIENT NAME: GIRMA RABAGO compartments. Hypertrophic osteophytes were resected. Ligament balancing was achieved. Medial and lateral menisci were excised. Anterior and posterior cruciate ligaments were then resected. Intramedullary instrumentation was then used to resect distal femur to 5 degrees of valgus. The distal femur was appropriately sized and a size-7 cutting block was used to create the anterior, followed by posterior, followed by chamfer cuts. The appropriate osteotomy guide was then placed across distal femur and the femoral notch was resected. The proximal tibia was then translated anteriorly. Utilizing extramedullary instrumentation, the proximal tibia was resected perpendicular to its mechanical axis resecting 10 mm from the lateral tibial plateau. The proximal tibia appropriately sized and a size 9 baseplate was noted to provide optimal coverage. Appropriate rotatory alignment was achieved. The appropriate reamer and broach were then used to create center portion of the tibial insert. The patella was then resected so as to ensure quaker of its normal height with the prosthesis in place. Flexion and extension gaps were checked and noted to be equal. Optimal stability was noted with a 5-mm insert, 0 degrees of gravity extension with 135 degrees of gravity flexion were present. Patellofemoral tracking was within normal limits. There was no varus or valgus instability noted. The knee was stable in both flexion as well as extension. The trial components were removed. The bony surfaces were prepared for cement implantation utilizing pulsatile lavage irrigation. The tibial tray was cemented into place along with cement implantation of femoral component. Polyethylene insert was then placed on tibial tray and the knee was placed in full extension. Patellar component was cemented. Tourniquet deflated. Meticulous hemostasis achieved with Bovie electrocautery. Copious antibiotic lavage was performed. Medium Hemovac drain was placed deep to the extensor mechanism and the knee was placed into 70 degrees of flexion. The arthrotomy was closed in a watertight fashion with a 2.0 Quill suture. Skin was closed with interrupted 0 Vicryl, followed by 2-0 Vicryl, followed by surgical fabian per Ms. Sharp. Sterile dressing was applied by Ms. Sharp. The patient was then extubated, taken to recovery room awake and alert without any anesthetic or operative complications. At the end of the case, sponge and needle counts were correct x2. During the procedure, Ms. Sharp was invaluable in positioning the patient as well as in preparation and draping of the extremity. She is also responsible for providing surgical exposure during the procedure, which greatly expedited performance of the procedure in addition to protection of the neurovascular structures. Finally, she was responsible for closure of the postoperative incisions and application of postoperative dressing. Dictated By: Rohith Rajput MD WT: OP:TEJINDER/RICARDO/DIA Conf#: [id number]/DID#: [id number] PATIENT NAME: GIRMA RABAGO Authenticated by Rohith Rajput MD On 12/16/2018 06:48:45 AM at 0649 PATIENT NAME: GIRMA RABAGO [facility] 2018-12-15 11:23:00 [facility] ([facility]) Brief Op Note REPORT#:[id number] REPORT STATUS: Signed DATE:12/15/18 TIME: 1123 PATIENT: GIRMA RABAGO UNIT #: [id number] ROOM/BED: [address] : 56 AGE: 63 SEX: M ATTEND: Rohith Rajput MD ADM AUTHOR: Rohith Rajput MD * ALL edits or amendments must be made on the electronic/computer document * Op/Inv Proc Note - Brief Pre-procedure diagnosis: rt knee oa Post-procedure diagnosis: same as pre procedure dx Procedures performed: rt total knee Primary Surgeon: gorge rajput Passenger Rate Clerk(s): smita sharp Findings: Portions of this note were transcribed by a Scribe. I, personally performed the history, physical exam and medical decision making; and confirmed the accuracy of the information in the transcribed note. Complications: none Estimated blood loss in ml's: 50 ml Specimens removed/altered: none Portions of this section were scribed by Smita Pelayo on 12/15/18 at 1123 at 1537 [facility] #:[phone] END OF REPORT [facility] 2018-12-10 18:02:00 [id number] [place] [address] PATIENT NAME: GIRMA RABAGO ADMIT DATE: ACCOUNT NO: [id number] ROOM NO: AGE: 63 REPORT TYPE: HISTORY AND PHYSICAL SEX: M ADMITTING PHYSICIAN: ATTENDING PHYSICIAN:Rohith Rajput MD ADMISSION DATE: 12/15/2018 ADMITTING DIAGNOSIS: Right knee osteoarthritis, M17.11. HISTORY OF PRESENT ILLNESS: Mr. Rabago is a 63-year-old male, who is having progressive and severe pain involving his right knee. His pain has been occurring on a daily basis. His pain has been refractory to extensive nonoperative intervention. His clinical as well as radiographic evaluation revealed significant tricompartmental arthritis. Due to his disabling pain and lack of response to nonoperative treatment, Mr. Rabago is admitted for right total knee arthroplasty. PAST MEDICAL HISTORY: Entirely within normal limits. PAST SURGICAL HISTORY: Previous surgeries include a left total knee arthroplasty. FAMILY HISTORY: Unremarkable. SOCIAL HISTORY: He is a pack a day smoker. MEDICATIONS: No medications are listed. ALLERGIES: NO ALLERGIES ARE LISTED. REVIEW OF SYSTEMS: Negative. PHYSICAL EXAMINATION: VITAL SIGNS: He is 6 feet 1 inch tall, 114 kilograms. HEENT: Within normal limits. CARDIAC: Regular rate and rhythm. No murmur. CHEST: Clear. ABDOMEN: Benign. BACK: No CVA tenderness. PERTINENT ORTHOPEDIC EVALUATION: Leg lengths were equal. Full painless motion of both hips. Examination of the right knee revealed a fixed varus deformity. He has painful passive motion. Positive effusion is noted. He has 3 to 115 degrees of motion. There is no instability. His distal neurovascular status is intact. DIAGNOSTIC DATA: Radiographic evaluation reveals varus alignment with [id number] disease. PATIENT NAME: GIRMA RABAGO ASSESSMENT: Right knee pain secondary to severe osteoarthritis. SURGICAL PLAN: Will be to proceed with a right total knee arthroplasty. I have gone over at length with Mr. Rabago the associated risks involved with this procedure. He understands these include but not limited to bleeding, transfusion requirement, infection, neurovascular damage, leg length inequality, loosening of the prosthesis requiring possible revision, loss of motion, persistent limp, painful scar, deep vein thrombus leading to pulmonary emboli along with complications secondary to anesthesia. Mr. Rabago further understands that there are absolutely no guarantees or warranties that he will be pain free after the procedure. He accepts these risks and gives his informed consent to proceed. Dictated By: Rohith Rajput MD WT: HP:TEJINDER/RICARDO/DIA Conf#: [id number]/DID#: [id number] Authenticated by Rohith Rajput MD On 12/11/2018 12:51:05 PM at 1251 PATIENT NAME: GIRMA RABAGO [facility] 2018-09-30 11:42:00 [id number] [place] [address] PATIENT NAME: GIRMA RABAGO ADMIT DATE: 09/29/18 ACCOUNT NO: [id number] ROOM NO: AGE: 63 REPORT TYPE: DISCHARGE SUMMARY REPORT SEX: M ADMITTING PHYSICIAN: ATTENDING PHYSICIAN:Rohith Rajput MD ADMISSION DATE: 09/29/2018 DISCHARGE DATE: 09/30/2018 ADMITTING DIAGNOSIS: Left knee posttraumatic arthritis. PRIMARY DISCHARGE DIAGNOSIS: Left knee posttraumatic arthritis, M17.12. OPERATIVE PROCEDURES PERFORMED: On 09/29/2018, left total knee arthroplasty, 51573. HISTORY OF PRESENT ILLNESS: Mr. Rabago is a 63-year-old male, who was having severe and progressive pain involving both of his knees. He was experiencing pain on a daily basis. His pain had been refractory to extensive nonoperative intervention. He is admitted for initial left total knee arthroplasty. HOSPITAL COURSE: Mr. Rabago was taken to the operative suite on the date of admission where he underwent a left total knee arthroplasty with removal of deep buried implant without complications. Postoperatively, he received a total of 24 hours of IV antibiotic therapy. On the day of discharge, he is eating and voiding without difficulty. His dressing is dry and intact. His neurovascular status is intact. He will be discharged to home today. Office followup in 2 weeks. Outpatient physiotherapy has been instructed. He is on compressive stockings as well as aspirin for DVT prophylaxis. CONDITION ON DISCHARGE: He is in stable condition at the time of discharge without questions or complaints. DISCHARGE MEDICATIONS: Please see discharge medication reconciliation sheet. Dictated By: Rohith Rajput MD WT: DS:TEJINDER/RICARDO/DIA Conf#: [id number]/DID#: [id number] Authenticated by Rohith Rajupt MD On 10/01/2018 07:00:50 AM PATIENT NAME: GIRMA RABAGO at 0701 PATIENT NAME: GIRMA RABAGO [facility] 2018-09-30 09:58:00 [facility] ([facility]) Clinical Note REPORT#:[id number] REPORT STATUS: Signed DATE:09/30/18 TIME: 957 PATIENT: GIRMA RABAGO UNIT #: [id number] ROOM/BED: [address] : 56 AGE: 63 SEX: M ATTEND: Rohith Rajput MD ADM AUTHOR: Aron Jordan MD * ALL edits or amendments must be made on the electronic/computer document * Clinical Note Note: [facility] Aron Gallardo M.D. (cell text [phone]) Assessment/Plan 1.) Anemia of acute blood loss- .Hgb 12.0, asymptomatic. 2.) S/p Left TKA- .acute pain control. Anticoagulation as per Dr. Rajput. 3.) Hypertension- .follow BP and hold Rxs if SBP<120. 4.) OSteoArthritis Tobacco smoker- .continue on Rx. * Ok for DISCHARGE per Internal Medicine. Prior Events/Overnight: Uneventful. Chief Complaint: No significant complaints. Objective Vital Signs: Date Time Temp Pulse Resp B/P B/P Pulse O2 O2 Flow FiO2 Mean Ox Delivery Rate 09/30 0800 98 Room air 09/30 0711 97.7 64 18 118/77 90.4 97 Room air 09/30 0405 97.5 51 14 96/52 70 99 Nasal cannula 09/30 0211 93 Nasal 3.955510 32 cannula 09/30 0049 Nasal 3.865425 96 cannula 09/29 2208 97.7 73 16 120/65 86 95 Nasal cannula 09/29 2025 95 Nasal 3.451415 32 cannula 09/29 1900 97.3 75 18 117/62 84 96 Nasal cannula 09/29 1532 97.3 82 18 130/76 94.0 98 Nasal cannula 09/29 1233 99 Nasal 3.218687 32 cannula 09/29 1214 Nasal 3.565489 cannula 09/29 1154 97.3 77 18 119/68 85.0 97 Nasal cannula 09/29 1130 97.4 76 16 129/68 97 Nasal 3.809425 cannula 09/29 1129 Nasal 3.545744 cannula 09/29 1112 82 17 143/74 96 Nasal 3.506451 cannula 09/29 1105 Simple 8.367899 mask 09/29 1057 97.1 84 12 107/59 96 Simple 8.236870 mask Gen: Alert, oriented, in mild discomfort - very pleased with care. Neck: No Masses, No Thyromegaly- CV: Regular Rate Rhythm / Edema- no significant Resp: Clear To Ascultation / Normal Respiratory Effort ABD: NonTender / NonDistended MS/Skin: No Cyanosis / No nodules / +Ankle DF/PF / nl capillary refill of toes. Other: Labs/X-ray: Laboratory Tests: 09/30 0400 Hematology Hgb (12 - 16 g/dL) 12.0 Hct (37 - 47 %) 36.8 L Aron Gallardo M.D. at 1055 RPT #:[id number] END OF REPORT [facility] 2018-09-29 17:25:00 [facility] ([facility]) Clinical Note REPORT#:[id number] REPORT STATUS: Signed DATE:09/29/18 TIME: 1725 PATIENT: GIRMA RABAGO UNIT #: [id number] [facility] AGE: 63 SEX: M ATTEND: Rohith Rajput MD ADM AUTHOR: Aron Jordan MD * ALL edits or amendments must be made on the electronic/computer document * Clinical Note Note: [facility] Aron Gallardo MD (cell text [phone]) Internal Medicine Consult at request of : Dr Rohith Rajput Chief Complaint: Left knee pain HPI: 63 yo M is now s/p Left total knee arthroplasty (TKA) by Dr. Rajput. Mr. Rabago relates years of progressive bilateral knee pain (recently severe), worse with activity, and achy and stiff at times in quality. He has failed conservative management. Comorbidities: see below. PmHx: .Osteoarthritis, Current every day smoker ALLERGY: Allergies: codeine (Coded, Mild, HYPERACTIVE BEHAVIOR, 09/29/18) Home Medications: Home Medications: No Known Home Medications SgHx: .Right knee meniscus, Left ACL repair, Left shoulder SHx: Tob: ppd x 20 yrs, FHx: .No significant hx of DVT/PE. Alcohol: none Drugs: none Lives: with spouse Vitals: Vital Signs Date Temp Pulse Resp B/P B/P Mean Pulse Ox FiO2 09/29 97.1-98.1 76-84 12-18 107-143/59-81 85.0-94.0 95-99 32 Gen: Alert, in mild discomfort, nl nutrition. EYE: Nl lids conjunctiva. ENT: Nl ears Nose, nl lips,. Neck: Supple, nl thyroid, No masses. CV: Regular Rate Rhythm, no heave or significant murmur. Edema- none Feet toes normal temperature. RESP: Clear to Auscultation, normal Respiratory effort. ABD: Soft, NonDistended,. LYM: No significant cervical Lymphadenopathy. MS: No Clubbing, cyanosis, Knee is wrapped, drain NEURO: Nonfocal, grossly normal sensation of LE, +Ankle DF/PF PSY: Normal insight, Normal mood, oriented, . Preop Labs(09/14/18): CBC:. Hgb 14.1, Plt 282, CHEM: Na 141, K 4.2, Cr 0.99(eGFR 76.6%) Ekg: NSR (medium to high risk of complications or morbidity) (major surgery) (IV sedative, meds) Assessment Plan 1.) Anemia of Acute Blood Loss- .will recheck 09/30/18. 2.) S/p Left TKA- .acute pain control. Anticoagulation as per Dr. Rajput. 3.) Hypertension- .follow BP and hold Rxs if SBP<120. 4.) OSteoArthritis Tobacco smoker- .continue on Rx. Aron Gallardo M.D. Thanks! at 7912 RPT #:[id number] END OF REPORT [facility] 2018-09-29 10:48:00 [id number] [place] [address] PATIENT NAME: GIRMA RABAGO ADMIT DATE: 09/29/18 ACCOUNT NO: [id number] ROOM NO: AGE: 63 REPORT TYPE: OPERATIVE REPORT SEX: M ADMITTING PHYSICIAN: ATTENDING PHYSICIAN:Rohith Rajput MD OPERATION DATE: 09/29/2018 PREOPERATIVE DIAGNOSIS: Left knee posttraumatic arthritis. POSTOPERATIVE DIAGNOSIS: Left knee posttraumatic arthritis, M17.12. PROCEDURES PERFORMED: 1. Left total knee arthroplasty, . 2. Removal of deep buried implant, left knee, . ANESTHESIA: General. TOURNIQUET TIME: 25 minutes. ESTIMATED BLOOD LOSS: Less than 30 mL. SURGEON: Rohith Rajput MD HAIR COLORIST: LISBETH Almanzar OPA CLINICAL INDICATIONS: Mr. Rabago is a 63-year-old male from [place], [place], who is having severe and progressive pain involving his left knee. His pain is occurring with daily activities. His pain has been refractory to extensive nonoperative intervention. Due to his progressive pain and lack of response to nonoperative treatment, Mr. Rabago is admitted for left total knee arthroplasty. PROCEDURE IN DETAIL: 1. LEFT TOTAL KNEE ARTHROPLASTY, . 2. REMOVAL OF DEEP BURIED IMPLANT, LEFT KNEE, . Mr. Rabago was brought into the operative suite, at which time he was placed in supine position on the OR table. Routine monitors were established. General anesthesia was delivered. After satisfactory induction of general anesthesia, a tourniquet was applied to the patient's left lower extremity per Mr. Pelayo and the left leg was circumferentially prepped and draped in usual sterile fashion per Mr. Pelayo. The leg was then elevated, exsanguinated, the tourniquet was insufflated to 300 mmHg. The knee was flexed to 90 degrees. Anterior midline incision was performed. Medial parapatellar arthrotomy was performed. Patella was everted laterally. Severe grade IV changes were noted in all 3 compartments. Hypertrophic osteophytes were resected. Ligament balancing was achieved. Medial and lateral menisci were excised. Anterior and PATIENT NAME: GIRMA RABAGO posterior cruciate ligaments were resected. Intramedullary instrumentation was then used to resect the distal femur to 5 degrees of valgus. The distal femur was appropriately sized and a size-8 cutting block was used to create the anterior, followed by posterior, followed by chamfer cuts. The appropriate osteotomy guide was then placed across distal femur and the femoral notch was resected. The proximal tibia was then translated anteriorly. Utilizing extramedullary instrumentation, the proximal tibia was resected perpendicular to its mechanical axis resecting 10 mm from the lateral tibial plateau. The proximal tibia was appropriately sized and a size-9 baseplate was noted to provide optimal coverage. Appropriate rotatory alignment was achieved, and the appropriate reamer and broach were used to create center portion for the tibial insert. The patella was then resected so as to ensure quaker of its normal height with the prosthesis in place. Trial components were placed into the joint. Optimal stability was noted utilizing a 5-mm insert. Full extension with 135 degrees of gravity flexion was achieved. Patellofemoral tracking was within normal limits. There was no varus or valgus instability noted. The knee was stable in both flexion as well as extension. The trial components were removed. The bony surfaces were prepared with cement implantation utilizing pulsatile lavage irrigation. The tibial tray was cemented into place along with cement implantation of the femoral component. Polyethylene insert was then placed on the tibial tray and the knee was placed in full extension. The patellar component was cemented. Tourniquet was deflated. Meticulous hemostasis was achieved with Bovie electrocautery. Copious antibiotic lavage was performed. Medium Hemovac drain was then placed deep to the extensor mechanism and the knee was placed into 70 degrees of flexion. The arthrotomy was closed in a watertight fashion with a 2.0 Quill suture. Skin was closed with interrupted 0 Vicryl, followed by 2-0 Vicryl, followed by surgical fabian per Mr. Pelayo. A sterile dressing was applied by Mr. Pelayo. The patient was then extubated and taken to the recovery room awake and alert without any anesthetic or operative complications. At the end of the case, sponge and needle counts were correct x2. During the procedure, Mr. Pelayo was invaluable in positioning the patient as well as in preparation and draping of the extremity. He is also responsible for providing surgical exposure during the procedure in order to expedite performance of the procedure as well as in protection of the neurovascular bundles. Finally, he was responsible for closure of the postoperative incisions and application of postoperative dressing. Prior to performing the proximal tibia resection, a deep buried intramedullary screw was removed from the posterior femur, which was present for the previous ACL reconstruction. Dictated By: Rohith Rajput MD WT: OP:TEJINDER/RICARDO/DIA PATIENT NAME: GIRMA RABAGO Conf#: [id number]/DID#: [id number] Authenticated by Rohith Rajput MD On 10/09/2018 09:54:34 AM at 0954 PATIENT NAME: GIRMA RABAGO [facility] 2018-09-29 10:47:00 [facility] ([facility]) Brief Op Note REPORT#:[id number] REPORT STATUS: Signed DATE:09/29/18 TIME: 104 PATIENT: GIRMA RABAGO UNIT #: [id number] ROOM/BED: : 56 AGE: 63 SEX: M ATTEND: Rohith Rajput MD ADM AUTHOR: Rohith Rajput MD * ALL edits or amendments must be made on the electronic/computer document * Op/Inv Proc Note - Brief Pre-procedure diagnosis: LEFT KNEE OA Post-procedure diagnosis: same as pre procedure dx Procedures performed: LEFT TOTAL KNEE Primary Surgeon: DR RAJPUT Passenger Rate Clerk(s): SMITA Johnson Findings: Portions of this note were transcribed by a Scribe. I, personally performed the history, physical exam and medical decision making; and confirmed the accuracy of the information in the transcribed note. Complications: none Estimated blood loss in ml's: 50 ML Specimens removed/altered: none Portions of this section were scribed by Smita Pelayo on 09/29/18 at 1047 at 1132 RPT #:[id number] END OF REPORT [facility] 2018-09-24 17:34:00 [id number] [place] [address] PATIENT NAME: GIRMA RABAGO ADMIT DATE: 09/29/18 ACCOUNT NO: [id number] ROOM NO: AGE: 63 REPORT TYPE: HISTORY AND PHYSICAL SEX: M ADMITTING PHYSICIAN: ATTENDING PHYSICIAN:Rohith Rajput MD ADMISSION DATE: 09/29/2018 ADMITTING DIAGNOSIS: Left knee osteoarthritis, M17.12. HISTORY OF PRESENT ILLNESS: Mr. Rabago is a very pleasant 63-year-old male, who has been having severe and disabling pain involving both of his knees. The pain is greater in the left knee as opposed to the right. The pain is occurring on a daily basis. Clinical as well as radiographic evaluation revealed severe bilateral knee osteoarthritis. Due to his disabling pain and lack of response to nonoperative treatment, he is admitted for left total knee arthroplasty with potential removal of deep buried implants. PAST MEDICAL HISTORY: Unremarkable. FAMILY HISTORY: Negative. PAST SURGICAL HISTORY: Previous surgeries include a left shoulder procedure, left knee anterior cruciate ligament reconstruction, and right knee arthroscopy. SOCIAL HISTORY: Socially he is a [id number] smoker. He does not drink. 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 MEDICATIONS: No medications are listed. ALLERGIES: NO ALLERGIES ARE NOTED. REVIEW OF SYSTEMS: Negative. PHYSICAL EXAMINATION: VITAL SIGNS: He is 6 feet and 1 inch tall, 114 kilograms. HEENT: Within normal limits. CARDIAC: Regular rate and rhythm. No murmur. CHEST: Clear. ABDOMEN: Benign. BACK: No CVA tenderness. PERTINENT ORTHOPEDIC EVALUATION: Examination of the left knee with a fixed varus deformity. He has an antalgic gait. He has a positive effusion. Painful passive motion is noted. He has 10 to 90 degrees of motion. No instability is present. His distal neurovascular status is intact. DIAGNOSTIC DATA: Radiographic evaluation reveals varus alignment with [id number] disease. Post-surgical changes are present secondary to a previous PATIENT NAME: GIRMA RABAGO ACL reconstruction. MY ASSESSMENT: Left knee pain secondary to severe osteoarthritis. SURGICAL PLAN: Will be to proceed with a left total knee arthroplasty with potential removal of deep buried implants, left knee. I have gone over at length with the patient the associated risks involved with this procedure. He understands these include but are not limited to bleeding, transfusion requirement, infection, neurovascular damage, painful scar, loss of motion, leg length inequality, loosening of the prosthesis requiring possible revision, persistent limp, deep vein thrombus leading to pulmonary emboli along with complications secondary to anesthesia. Mr. Rabago further understands that there are absolutely no guarantees or warranties that he will be pain free after the procedure. He accepts these risks and gives his informed consent to proceed. Dictated By: Rohith Rajput MD WT: HP:TEJINDER/RICARDO/DIA Conf#: [id number]/DID#: [id number] Authenticated by Rohith Rajput MD On 09/29/2018 10:49:28 AM at 1049 PATIENT NAME: GIRMA RABAGO [facility] 2018-09-14 07:54:00 [id number] [address] PATIENT NAME: GIRMA RABAGO ADMIT DATE: ACCOUNT NO: [id number] ROOM NO: AGE: 63 REPORT TYPE: ELECTROCARDIOGRAM SEX: M ADMITTING PHYSICIAN: ATTENDING PHYSICIAN:Rohith Rajput MD Order: [id number] Test Reason : PRE OP CLEARANCE AGE 63Y Test Date/Time Stamp: FriSep 14 2018 07:54:17 Blood Pressure : / mmHG Vent. Rate : 080 BPM Atrial Rate : 080 BPM P-R Int : 162 ms QRS Dur : 120 ms QT Int : 394 ms P-R-T Axes : 058 -26 036 degrees QTc Int : 454 ms Normal sinus rhythm Low voltage QRS Right bundle branch block Abnormal ECG No previous ECGs available Confirmed by KATT PARADA MD ([id number]) on 09/15/2018 8:52:46 PM Referred By: Rohith Rajput Confirmed by:KATT PARADA MD at 3820 PATIENT NAME: GIRMA RABAGO [facility]
[2025-01-09] MEDS ORDERED: KETOROLAC 30 MG/ML INJ ONE (10:13)
[2025-01-09 10:38] LABS: PT Prothrombin Time 13.2 SECONDS (10-13.0); Protime INR 1.17
[2025-01-09 10:46] LABS: ALT/SGPT 18.0 U/L (16-61); AST/SGOT 13.0 U/L (15-37); Albumin 3.4 g/dL (3.4-5.0); Albumin/Globulin Ratio 0.9 (1.1-1.8); Alkaline Phosphatase 61.0 U/L (45-117); Anion Gap 12.3 mEq/L (5.0-15.0); BUN Blood Urea Nitrogen 23.0 mg/dL (7-18); Bilirubin Indirect, Calculated 0.9 mg/dL (0.2-0.8); Globulin 4.0 g/dL (2.3-3.5); Glucose Level 120.0 mg/dL (74-106); Magnesium 1.7 mg/dL (1.6-2.4); NT PRO-BNP 193.0 pg/mL (<125); Potassium 4.3 mEq/L (3.5-5.1); Troponin High Sensitivity 8.7 pg/mL (<58.9)
--- NOTE | 2025-01-09 10:56 | RAD REPORT ---
EXAM: CT CHEST, ABDOMEN AND PELVIS WITHOUT CONTRAST CLINICAL INDICATION: Male, 69 years old. [facility] MAIN fall / trauma / flank pain Bed Name: 18 TECHNIQUE: CT chest, abdomen and pelvis was performed, without IV contrast, as per department protoco l. Axial, sagittal and coronal reconstructions were obtained. One or more of the following dose reduction techniques were used: Automated exposure control, adjustment of the mA and/or kV according to the patient size, and/or iterative reconstruction. Unless otherwise specified, incidental findings do not require dedicated imaging follow-up. COMPARISON: CT chest 11/21/2023 FINDINGS: The lack of intravenous contrast limits the sensitivity of this exam for evaluation of solid visceral organs, vascular structures, and retroperitoneum. Chest: LOWER NECK/CHEST WALL: Visualized thyroid gland and soft tissues are normal. LUNGS AND AIRWAYS: Airways are clear. Medial left lower lobe 7.6 cm subpleural bullous formation, sta ble. No evidence of airspace or interstitial process. No nodules. PLEURA: No pleural effusion. No pneumothorax. Hemidiaphragms are normally positioned. MEDIASTINUM AND LYMPH NODES: No mediastinal mass or fluid collection. Normal size mediastinal, hilar, and axillary lymph nodes. THORACIC AORTA: Normal caliber and configuration. PULMONARY ARTERIES: Normal caliber. HEART: Unremarkable. Abdomen/Pelvis LIVER: Normal in size and contour. No focal lesion. GALLBLADDER/BILE DUCTS: Small cholesterol containing dependent gallstones largest measuring 1.9 cm. PANCREAS: No mass, ductal dilation, or keyon-pancreatic fluid. SPLEEN: Normal size. No focal lesion. Heart rate ADRENALS: Normal; no mass. KIDNEYS AND URETERS: Normal size and contour. Mild right hydroureteronephrosis. 3 mm calculus at the distal ureter. Mild periureteral fat stranding. GASTROINTESTINAL TRACT: Stomach is non-dilated. Small bowel has normal course and caliber. No colonic wall thickening or pericolonic inflammatory changes. PERITONEUM: No free fluid. LYMPH NODES: No lymphadenopathy. ABDOMINAL AORTA AND OTHER VESSELS: Normal caliber aorta and IVC. URINARY BLADDER: Normal contour. REPRODUCTIVE ORGANS: No pathologic process. MUSCULOSKELETAL: No acute or suspicious osseous abnormality. ADDITIONAL FINDINGS: None IMPRESSION: Mild right hydroureteronephrosis. 3 mm distal right ureter calculus probably is the cause of obstruct ion. Other incidental findings as above, including cholelithiasis. THIS REPORT CONTAINS FINDINGS THAT MAY BE CRITICAL TO PATIENT CARE. The findings were verbally commun icated via telephone to Nancy Red on 01/09/2025 10:51 AM.
[2025-01-09 11:19] LABS: Absolute Lymphocytes (CBC) 0.5 K/uL (0.7-4.9); Hematocrit 43.0 % (39.6-49.0); Hemoglobin 14.4 g/dL (13.6-17.9); MCH 32.3 pg (27.0-35.0); MCHC 33.4 g/dL (32.0-36.0); MCV 96.6 fL (80-100); MPV 8.3 fL (7.6-11.3); Nucleated RBC Absolute Count 0.0 (0-0); Nucleated Red Blood Cells % 0.0 % (0-0); RBC Red Blood Cell Count 4.45 M/uL (4.33-5.43); White Blood Count 16.40 thou/uL (4.3-10.9)
[2025-01-09 12:06] LABS: Sqamous Epithelial <5 /HPF (None Seen); Urine Culture Reflex Order NOT NEEDED; Urine Microscopic Reflex YN ORDER UMIC
[2025-01-09 12:19] LABS: Anisocytosis 1+; Blood Morphology Comment NOTED (NOT SEEN); Poikilocytosis 1+; White Blood Cell Scan OK (OK)
--- NOTE | 2025-01-09 15:09 | EDPHYS ---
Physician Documentation [facility] Name: Girma Vernon Age: 69 yrs Sex: Male : 1955 Arrival Date: 01/09/2025 Time: 09:42 Bed 18 Private MD: ED Physician Nancy Red HPI: 01/09 10:26 This 69 yrs old Male presents to ER via EMS with complaints of fall, flank pain, sp3 weakness. 10:26 69-year-old male with history of hypertension, prior UTIs, presents via EMS for sp3 generalized weakness and fall while getting up from a chair. He denies hitting his head or full syncope. Patient landed on his right knee and right flank where he has his pain. He states this has happened to him in the past. He denies any other medical prodrome. Currently he has no headache, neck pain, chest pain, shortness of breath, abdominal pain, vomiting, diarrhea, bleeding, or any other signs or symptoms on ROS at this time.. Historical: - Allergies: 10:08 Codeine; jp5 - PMHx: 10:08 Hypertensive disorder; urinary tract infection; jp5 - Immunization history:: Adult Immunizations up to date. - Infectious Disease History:: Denies. - Social history:: Smoking status: Patient reports the use of cigarette tobacco products, smokes one-half pack cigarettes per day, Patient/guardian denies using alcohol, street drugs. ROS: 10:28 Constitutional: Negative for fever, chills, and weight loss, Eyes: Negative for injury, sp3 pain, redness, and discharge, ENT: Negative for injury, pain, and discharge, Neck: Negative for injury, pain, and swelling, Cardiovascular: Negative for chest pain, palpitations, and edema, Respiratory: Negative for shortness of breath, cough, wheezing, and pleuritic chest pain, Abdomen/GI: Negative for abdominal pain, nausea, vomiting, diarrhea, and constipation, Skin: Negative for injury, rash, and discoloration, Neuro: Negative for headache, weakness, numbness, tingling, and seizure, Psych: Negative for depression, anxiety, suicide ideation, homicidal ideation, and hallucinations, Allergy/Immunology: Negative for hives, rash, and allergies, Endocrine: Negative for neck swelling, polydipsia, polyuria, polyphagia, and marked weight changes, 10:28 All other systems are negative, Exam: 10:28 Constitutional: This is a well developed, well nourished patient who is awake, alert, sp3 and in no acute distress. Head/Face: Normocephalic, atraumatic. Eyes: Pupils equal round and reactive to light, extra-ocular motions intact. Lids and lashes normal. Conjunctiva and sclera are non-icteric and not injected. Cornea within normal limits. Periorbital areas with no swelling, redness, or edema. Neck: Trachea midline, no thyromegaly or masses palpated, and no cervical lymphadenopathy. Supple, full range of motion without nuchal rigidity, or vertebral point tenderness. No Meningismus. Chest/axilla: Normal chest wall appearance and motion. Nontender with no deformity. No lesions are appreciated. Cardiovascular: Regular rate and rhythm with a normal S1 and S2. No gallops, murmurs, or rubs. Normal PMI, no JVD. No pulse deficits. Respiratory: Lungs have equal breath sounds bilaterally, clear to auscultation and percussion. No rales, rhonchi or wheezes noted. No increased work of breathing, no retractions or nasal flaring. Abdomen/GI: Soft, non-tender, with normal bowel sounds. No distension or tympany. No guarding or rebound. No evidence of tenderness throughout. Neuro: Awake and alert, GCS 15, oriented to person, place, time, and situation. Cranial nerves II-XII grossly intact. Motor strength 5/5 in all extremities. Sensory grossly intact. Cerebellar exam normal. Normal gait. Psych: Awake, alert, with orientation to person, place and time. Behavior, mood, and affect are within normal limits. 10:28 Back: Diffuse back pain on the lower back limited by body habitus. No step-offs noted., 10:28 Musculoskeletal/extremity: Right foot 3rd and 4th toes with abrasions and tender to palpation. No crepitus noted.. 12:58 ECG was reviewed by the Attending Physician. EKG demonstrates normal sinus rhythm at 86 sp3 bpm with normal intervals, normal QRS, leftward axis and nonspecific diffuse ST/T changes without evidence of acute ischemia. Vital Signs: 10:05 BP 142 / 104; Pulse 94; Resp 20; Temp 98; Pulse Ox 98% on R/A; Pain 4/10; jp5 11:27 BP 121 / 57; Pulse 93; Resp 18; Temp 99.5; Pulse Ox 94% ; Pain 0/10; pm7 12:30 BP 129 / 73; Pulse 88; Resp 20; Pulse Ox 100% on R/A; jp5 13:30 BP 111 / 57; Pulse 89; Resp 22; Pulse Ox 95% on R/A; jp5 14:30 BP 110 / 56; Pulse 94; Resp 18; Pulse Ox 95% on R/A; jp5 17:30 BP 101 / 64; Pulse 91; Resp 20; Temp 98; Pulse Ox 97% on R/A; jp5 10:05 Pain Scale: Adult jp5 11:27 Pain Scale: Adult pm7 MDM: 10:00 Medical Screening Exam initiated sp3 10:29 Data reviewed: vital signs, nurses notes, EMS record, lab test result(s), EKG, sp3 radiologic studies. ED course: 69-year-old male with PMH above now with mechanical fall after getting generalized weakness symptoms. Differential diagnosis includes UTI, electrolyte abnormality, dehydration, traumatic injury to the ribs or back, potential foot injury/fracture or injury to the right 3rd and 4th toe, among others. Low suspicion for ACS, sepsis, shock or other critical process. Patient with no headache and no neurological symptoms. CT head not indicated. Workup will include CT scan of the chest abdomen pelvis noncontrast, general labs, UTI, or right foot x-ray, and general supportive care. Disposition pending workup and patient course.. 12:58 ED course: Patient has a 3 mm stone in the left distal ureter ureter. is at the [facility] bedside who now also states patient has newly diagnosed prostate cancer for which they are following up with Dr. Reynolds. Given bump in creatinine and the after mentioned complexity, patient will likely need inpatient care. We have tried to call Dr. Reynolds on his cell phone multiple times. No other means of communication known. We have also sent text messages. We are awaiting communication return otherwise we will have to transfer to [facility] for admission and urological consultation.. 15:07 ED course: We are still unable to get a hold of Dr. Reynolds. Patient's PCP is Dr. Fuchs [facility] who is also out of town. His patients are going to the hospital service. I believe patient's elevated creatinine is due to dehydration and prerenal insufficiency as opposed to obstructive uropathy. Stone is only 3 mm. We will go ahead and admit here for hydration and general support for his weakness with continued outpatient follow-up to urology. I discussed the case with Dr. Kat who will be admitting until he can hand the patient back off to Dr. Fuchs tomorrow.. 01/09 10:01 Order name: Basic Metabolic Panel; Complete Time: 11: [facility] 01/09 10:01 Order name: CBC with Diff; Complete Time: 12: [facility] 01/09 10:01 Order name: LFT's; Complete Time: 11: [facility] 01/09 10:01 Order name: Magnesium; Complete Time: : [facility] 01/09 10:01 Order name: NT PRO-BNP; Complete Time: 11: [facility] 01/09 10:01 Order name: PT-INR; Complete Time: 11: [facility] 01/09 10:01 Order name: Troponin HS; Complete Time: 11: [facility] 01/09 10:01 Order name: UA Rfx Jeff Cult if indicated; Complete Time: 12: [facility] 01/09 11:25 Order name: CBC Smear Scan; Complete Time: 12:22 [facility] 01/09 15:49 Order name: Basic Metabolic Panel [facility] 01/09 15:49 Order name: Basic Metabolic Panel [facility] 01/09 15:49 Order name: Basic Metabolic Panel [facility] 01/09 15:49 Order name: Basic Metabolic Panel [facility] 01/09 15:49 Order name: Comprehensive Metabolic Panel [facility] 01/09 15:49 Order name: Comprehensive Metabolic Panel [facility] 01/09 15:49 Order name: Comprehensive Metabolic Panel [facility] 01/09 15:49 Order name: Comprehensive Metabolic Panel [facility] 01/09 10:01 Order name: CT Chest Abdomen Pelvis W/O Contrast; Complete Time: 11:03 [facility] 01/09 10:01 Order name: Cardiac monitoring; Complete Time: 10:12 [facility] 01/09 10:01 Order name: EKG - Nurse/Tech; Complete Time: 13:14 [facility] 01/09 10:01 Order name: IV Saline Lock; Complete Time: 10:12 [facility] 01/09 10:01 Order name: Labs collected and sent; Complete Time: 10:12 3 01/09 10:01 Order name: O2 Per Protocol; Complete Time: 10:12 sp3 01/09 10:01 Order name: O2 Sat Monitoring; Complete Time: 10:12 sp3 01/09 10:30 Order name: Labs - recollect needed: recollect the lavender/ clotted per Sonny; Complete eb Time: 11:10 Administered Medications: 10:14 Drug: Ketorolac IVP 30 mg IVP once Route: IVP; Site: right antecubital; jp5 10:44 Follow up: Response: No adverse reaction; Pain is decreased jp5 Disposition Summary: 01/09/25 15:09 Hospitalization Ordered Notes: Hospitalization Status: Observation sp3 Provider: Noé Kat sp3 Location: Telemetry/MedSurg (observation) sp3 Condition: Stable sp3 Problem: new sp3 Symptoms: are unchanged sp3 Bed/Room Type: Standard sp3 Room Assignment: [facility](01/09/25 16:02) 1 Diagnosis - Dehydration, renal insufficiency, kidney stone, generalized weakness, ambulatory sp3 dysfunction Forms: - Medication Reconciliation Form sp3 - SBAR form sp3 - Leadership Thank You Letter sp3 Signatures: Dispatcher [employer] EDMS Gayathri Wise Lynsay RN RN ll1 Nancy Red MD MD sp3 Jael Wilcox RN RN jp5 Corrections: (The following items were deleted from the chart) 10:02 10:02 BASIC METABOLIC PANEL+C.LAB.BRZ ordered. EDMS EDMS 10:02 10:02 CBC+H.LAB.BRZ ordered. EDMS EDMS 10:02 10:02 HEPATIC FUNCTION+C.LAB.BRZ ordered. EDMS EDMS 10:02 10:02 MAGNESIUM+C.LAB.BRZ ordered. EDMS EDMS 10:02 10:02 PROBNP+C.LAB.BRZ ordered. EDMS EDMS 10:02 10:02 PROTIME (+INR)+COAG.LAB.BRZ ordered. EDMS EDMS 10:02 10:02 Troponin High Sensitivity+C.LAB.BRZ ordered. EDMS EDMS 10:02 10:02 Chest Abdomen Pelvis Wo Con+CT.RAD.BRZ ordered. EDMS EDMS 10:02 10:02 UA Rfx Jeff Cult if indicated+U.LAB.BRZ ordered. EDMS EDMS 11:00 10:28 Foot Right 3 View+RAD.RAD.BRZ ordered. EDMS EDMS 16:02 15:09 sp3 ll1
--- NOTE | 2025-01-09 15:09 | ER ---
Nurse's Notes [facility] Name: Girma Vernon Age: 69 yrs Sex: Male : 1955 Arrival Date: 01/09/2025 Time: 09:42 Bed 18 Private MD: Diagnosis: Dehydration, renal insufficiency, kidney stone, generalized weakness, ambulatory dysfunction Presentation: 01/09 10:05 Chief complaint: EMS states: Pt BIB EMS from home due to fall when attempting to get jp5 out of chair, pt was down on ground for about an hour before family called EMS. Pt has a scrap to his right knee and right 4th toe. Pt c/o chronic right sided back pain. Coronavirus screen: Client denies travel out of the [place] in the last 14 days. At this time, the client does not indicate any symptoms associated with coronavirus-19. Ebola Screen: No symptoms or risks identified at this time. Initial Sepsis Screen: Does the patient meet any 2 criteria? No. Patient's initial sepsis screen is negative. Does the patient have a suspected source of infection? No. Patient's initial sepsis screen is negative. Risk Assessment: Do you want to hurt yourself or someone else? Patient reports no desire to harm self or others. Onset of symptoms was January 09, 2025 at 09:00. 10:05 Method Of Arrival: EMS: [facility]5 10:05 Acuity: [place] 3 jp5 Triage Assessment: 10:09 General: Appears uncomfortable, obese, Behavior is cooperative, appropriate for age, jp5 restless. Pain: Complains of pain in right low back Pain currently is 4 out of 10 on a pain scale. Pain began years ago. Historical: - Allergies: 10:08 Codeine; jp5 - PMHx: 10:08 Hypertensive disorder; urinary tract infection; jp5 - Immunization history:: Adult Immunizations up to date. - Infectious Disease History:: Denies. - Social history:: Smoking status: Patient reports the use of cigarette tobacco products, smokes one-half pack cigarettes per day, Patient/guardian denies using alcohol, street drugs. Screenin:10 [facility] ED Fall Risk Assessment (Adult) History of falling in the last 3 months, jp5 including since admission Yes- single mechanical fall (1 pt) Confusion or Disorientation No (0 pts) Intoxicated or Sedated No (0 pts) Impaired Gait Yes (1 pt) Mobility Assist Device Used Yes (1 pt) Altered Elimination Yes (1 pt) Score/Fall Risk Level 3 or more points = High Risk Oriented to surroundings, Maintained a safe environment, Educated pt \T\ family on fall prevention, incl call for assistance when getting out of bed, Assessed \T\ reinforced patient's understanding of fall precautions, Provided non-skid footwear, Hourly rounding (assess needs \T\ fall precautionary measures) done, Used ambulatory aids as needed (educated on \T\ assisted with), Used gait belt as appropriate Implemented a Fall Risk Plan of Care, Apply high fall risk patient identification: yellow non skid footwear/ fall signage, Remained w/in arm's length of patient and in sight while toileting, Offered frequent toileting (1:1 observation), Remained with patient while ambulating, Utilized family, sitter, or virtual cane pusher as indicated. Abuse screen: Denies threats or abuse. Denies injuries from another. Nutritional screening: No deficits noted. Tuberculosis screening: No symptoms or risk factors identified. Assessment: 10:11 General: view triage. [facility] 11:00 Reassessment: Patient appears in no apparent distress at this time. Patient and/or [facility] family updated on plan of care and expected duration. Pain level reassessed. Patient is alert, oriented x 3, equal unlabored respirations, skin warm/dry/pink. Patient states feeling better. 12:00 Reassessment: Patient appears in no apparent distress at this time. No changes from 5 previously documented assessment. Patient and/or family updated on plan of care and expected duration. Pain level reassessed. Patient is alert, oriented x 3, equal unlabored respirations, skin warm/dry/pink. Patient states symptoms have improved. 13:00 Reassessment: Patient appears in no apparent distress at this time. No changes from 5 previously documented assessment. Patient and/or family updated on plan of care and expected duration. Pain level reassessed. Patient is alert, oriented x 3, equal unlabored respirations, skin warm/dry/pink. 14:00 Reassessment: Patient appears in no apparent distress at this time. No changes from 5 previously documented assessment. Patient and/or family updated on plan of care and expected duration. Pain level reassessed. Patient is alert, oriented x 3, equal unlabored respirations, skin warm/dry/pink. 15:00 Reassessment: Patient appears in no apparent distress at this time. No changes from jp5 previously documented assessment. Patient and/or family updated on plan of care and expected duration. Pain level reassessed. Patient is alert, oriented x 3, equal unlabored respirations, skin warm/dry/pink. 16:00 Reassessment: Patient appears in no apparent distress at this time. No changes from jp5 previously documented assessment. Patient and/or family updated on plan of care and expected duration. Pain level reassessed. Patient is alert, oriented x 3, equal unlabored respirations, skin warm/dry/pink. 17:06 Reassessment: Patient and/or family updated on plan of care and expected duration. Pain ll1 level reassessed. Vital Signs: 10:05 BP 142 / 104; Pulse 94; Resp 20; Temp 98; Pulse Ox 98% on R/A; Pain 4/10; jp5 11:27 BP 121 / 57; Pulse 93; Resp 18; Temp 99.5; Pulse Ox 94% ; Pain 0/10; pm7 12:30 BP 129 / 73; Pulse 88; Resp 20; Pulse Ox 100% on R/A; jp5 13:30 BP 111 / 57; Pulse 89; Resp 22; Pulse Ox 95% on R/A; jp5 14:30 BP 110 / 56; Pulse 94; Resp 18; Pulse Ox 95% on R/A; jp5 17:30 BP 101 / 64; Pulse 91; Resp 20; Temp 98; Pulse Ox 97% on R/A; jp5 10:05 Pain Scale: Adult jp5 11:27 Pain Scale: Adult pm7 ED Course: 10:00 Patient arrived in ED. eb 10:00 Nancy Red MD is Attending Physician. sp3 10:05 Jael Wilcox, VANESSA is Primary Nurse. jp5 10:08 Triage completed. jp5 10:09 Arm band placed on right wrist. jp5 10:10 No provider procedures requiring assistance completed. jp5 10:10 Inserted saline lock: 20 gauge in right antecubital area, using aseptic technique. jp5 Blood collected. Flushed with 10 mL NS. 10:11 Patient has correct armband on for positive identification. Bed in low position. Call jp5 light in reach. Side rails up X 1. Adult w/ patient. Provided Education on: call light use. Pulse ox on. NIBP on. Head of bed elevated. 10:12 Basic Metabolic Panel Sent. jp5 10:12 CBC with Diff Sent. jp5 10:12 LFT's Sent. jp5 10:12 Magnesium Sent. jp5 10:12 NT PRO-BNP Sent. jp5 10:12 PT-INR Sent. jp5 10:12 Troponin HS Sent. jp5 10:34 CT Chest Abdomen Pelvis W/O Contrast In Process Unspecified. EDMS 11:10 Lab(s) recollected, by me, sent to lab. jp5 12:00 UA Rfx Jeff Cult if indicated Sent. jp5 12:01 Urine collected: straight cath specimen, clear, Amount Returned: 320mL. jp5 13:48 assisted in repositioning from bed to recliner. pm7 15:08 Noé Kat MD is Hospitalizing Provider. sp3 17:06 Patient admitted, IV remains in place. ll1 Administered Medications: 10:14 Drug: Ketorolac IVP 30 mg IVP once Route: IVP; Site: right antecubital; jp5 10:44 Follow up: Response: No adverse reaction; Pain is decreased jp5 Medication: 10:10 VIS not applicable for this client. jp5 Outcome: 15:09 Decision to Hospitalize by Provider. sp3 17:06 Admitted to Med/surg accompanied by tech, via wheelchair, room 408, with chart, Report ll1 called to faxed and tubed to 4th 17:06 Condition: stable 17:06 Instructed on the need for admit, 17:47 Patient left the ED. jp5 Signatures: Dispatcher [employer] EDKY Gayathri Wise Lynsay RN RN ll1 Nancy Red MD MD sp3 Jael Wilcox RN RN jp5 Antionette Chester pm7
[2025-01-09] MEDS ORDERED: HYDROMORPHONE HCL 1 MG/ML INJ IV PRN (15:48)
--- NOTE | 2025-01-09 15:59 | P.HP ---
Certification for Inpatient Patient admitted to: Inpatient With expected LOS: >2 Midnights Patient will require the following post-hospital care: None Practitioner: I am a practitioner with admitting privileges, knowledge of patient current condition, hospital course, and medical plan of care. Services: Services provided to patient in accordance with Admission requirements found in Title 42 Section 412.3 of the Code of Federal Regulations Patient History Date of Service: 01/09/25 Primary Care Provider: Dr. Fuchs Reason for admission: uretal stone History of Present Illness: 69-year-old male with prior medical history of hypertension, prostate cancer presents to the ED via EMS after a fall at home due to weakness and back pain starting last night and worsening today. Patient endorses right back and right pelvic pain that waxes and wanes causing him to double over in pain, difficulty remaining comfortable in 1 position. Denies fevers, chills, N/V. Endorses feeling similar weakness prior to his admission last year November 2023 when he had a bladder infection. ER course: Patient arrived to ED via EMS. On arrival he appeared uncomfortable rating pain 4/10 to the back area. He stated he has chronic back pain that is worse now. Patient underwent laboratory and imaging workup. CT abdomen pelvis significant for 3 mm ureteral stone to the right side with mild hydronephrosis. Urinalysis was collected which currently shows no sign of infection or hematuria. Patient was given ketorolac IV push 30 mg x 1 While in the ED with inadequate pain relief. Allergies Codeine Adverse Reaction (Uncoded 01/09/25 15:59) Home medications list reviewed: Yes Home Medications: Rosuvastatin [Crestor*] 5 mg PO BEDTIME 11/22/23 Triamterene/Hydrochlorothiazid [Triamterene-Hctz 37.5-25 mg Cp] 0.5 tab PO DAILY 11/22/23 L.acidoph,Paracasei, B.lactis [Probiotic] 1 cap PO DAILY 01/09/25 Metoprolol Succinate [Toprol Xl*] 25 mg PO DAILY 01/09/25 Tamsulosin HCl 2 cap PO BEDTIME 01/09/25 - Past Medical/Surgical History Diabetic: No -: Spinal Stenosis -: Hypertension -: Spine surgery -: Knee surgery - Family History Family History: Reviewed- Non-Contributory - Social History Smoking Status: Unknown if ever smoked Alcohol use: No CD- Drugs: No Caffeine use: Yes Place of Residence: Home Review of Systems 10-point ROS is otherwise unremarkable Physical Examination - Physical Exam General: Alert, Oriented x3, Cooperative, Disheveled, Moderate distress, Obese HEENT: Atraumatic, Normocephalic, Mucous membr. moist/pink Neck: Supple, JVD not distended, No Thyromegaly Respiratory: Normal air movement, Diminished Cardiovascular: Normal pulses, Normal S1 S2, Abnormal S3, No gallops, No rubs, No murmurs, Edema (Chronic) Gastrointestinal: Normal bowel sounds, Hypoactive, Non-distended, W/out hepatosplenomegaly, Tenderness (RLQ) Musculoskeletal: No contractures, No erythema, Tenderness (Right flank) Integumentary: No rashes, No breakdown, No significant lesion, No erythema, No warmth, No cyanosis Neurological: Normal gait, Normal speech, Normal strength at 5/5 x4 extr, Normal tone, Sensation intact, Cranial nerves 3-12 intact, Normal affect External genitalia: Deferred Rectal: Deferred - Studies Laboratory Data (last 24 hrs) 01/09/25 01/09/25 01/09/25 11:10 10:18 10:18 WBC 16.40 H Hgb 14.4 Hct 43.0 Plt Count 225 PT 13.2 H INR 1.17 Sodium 137 Potassium 4.3 BUN 23 H Creatinine 1.98 H Glucose 120 H Magnesium 1.7 Total Bilirubin 1.2 H AST 13 L ALT 18 Alkaline Phosphatase 61 Assessment and Plan - Plan Assessment: 69-year-old male with prior medical history of hypertension, prostate cancer presents to the ED via EMS after a fall at home due to weakness and back pain starting last night and worsening today. Patient endorses right back and right pelvic pain that waxes and wanes causing him to double over in pain, difficulty remaining comfortable in 1 position. Denies fevers, chills, N/V. Endorses feeling similar weakness prior to his admission last year November 2023 when he had a bladder infection. Plan: 3 mm ureteral stone, right ureter hydroureteronephrosis, mild, right Flank pain CT abdomen pelvis shows 3 mm ureteral stone and mild right hydroureteronephrosis Strain urine for all voids to collect stone Ceftriaxone 2 g IV daily x 5 days Normal saline at 100 mL/h for IV fluid hydration Tamsulosin 0.8 mg nightly - Multimodal pain control with [facility] 10 mg Q 4 hours, Hydromorphone 1 mg Q 4 hours as needed for severe pain, will need to have vitals monitored to prevent hemodynamic intability/respiratory depression. Hypertension Continue metoprolol succinate 25 mg daily Continue equivalent half dosing of Maxide 37.5/25 Consider as needed antihypertensive meds as needed in anticipation of elevated blood pressures due to severe pain Hyperlipidemia Acute continue rosuvastatin 5 mg daily at bedtime Prostate cancer Followed by Dr. Reynolds Discussed with patient and Dr. Reynolds is out of the country and unavailable for consultation. Offered transfer and patient declined, opting to remain here for care. Discharge Plan: Home Plan to discharge in: 48 Hours - Advance Directives Does patient have a Living Will: No Does patient have a Durable POA for Healthcare: No - Code Status/Comfort Care Code Status Assessed: Yes Code Status: Full Code Critical Care: No
[2025-01-09 18:17] VITALS: O2SAT 97
[2025-01-09] MEDS: NA CHLORIDE 0.9% 1,000 ML IV SCH (18:32)
[2025-01-09] MEDS: ACETAMINOPHEN 500 MG TAB PO PRN (18:38)
[2025-01-09] MEDS: ONDANSETRON 4 MG/2 ML VIAL IV PRN (18:38)
[2025-01-09] MEDS: HYDROCODONE/APAP 10/325 TAB PO PRN (20:18)
[2025-01-09] MEDS ORDERED: TAMSULOSIN 0.4 MG SR CAP PO SCH (21:00)
[2025-01-09] MEDS ORDERED: ROSUVASTATIN 10 MG TAB PO SCH (21:00)
[2025-01-09 21:40] VITALS: BMI 43.5
[2025-01-10] MEDS: IBUPROFEN 400 MG TAB PO ONE (04:40)
[2025-01-10] MEDS: NA CHLORIDE 0.9% 500 ML IV ONE (04:42)
[2025-01-10 08:06] LABS: ALT/SGPT 38.0 U/L (16-61); AST/SGOT 58.0 U/L (15-37); Albumin 2.6 g/dL (3.4-5.0); Albumin/Globulin Ratio 0.8 (1.1-1.8); Alkaline Phosphatase 52.0 U/L (45-117); Anion Gap 11.8 mEq/L (5.0-15.0); BUN Blood Urea Nitrogen 37.0 mg/dL (7-18); Globulin 3.4 g/dL (2.3-3.5); Glucose Level 127.0 mg/dL (74-106); Potassium 3.8 mEq/L (3.5-5.1)
[2025-01-10 08:14] VITALS: TEMP 98.1
[2025-01-10] MEDS ORDERED: METOPROLOL XL 25 MG TAB PO SCH (09:00)
[2025-01-10] MEDS ORDERED: LACTOBACILLUS/ACIDOPHILUS TAB PO SCH (09:00)
[2025-01-10] MEDS ORDERED: MAXZIDE (HCTZ 25/TRIAMTERENE 37.5MG) TAB PO SCH (09:00)
[2025-01-10 09:13] LABS: Absolute Lymphocytes (CBC) 0.8 K/uL (0.7-4.9); Hematocrit 39.3 % (39.6-49.0); Hemoglobin 13.1 g/dL (13.6-17.9); MCH 32.3 pg (27.0-35.0); MCHC 33.3 g/dL (32.0-36.0); MCV 96.8 fL (80-100); MPV 9.3 fL (7.6-11.3); Nucleated RBC Absolute Count 0.0 (0-0); Nucleated Red Blood Cells % 0.0 % (0-0); RBC Red Blood Cell Count 4.06 M/uL (4.33-5.43); White Blood Count 19.80 thou/uL (4.3-10.9)
[2025-01-10] MEDS: ENOXAPARIN 40 MG/0.4 ML SQ SCH (09:28)
[2025-01-10] MEDS: CEFTRIAXONE 1,000 MG in NA CHLORIDE 0.9% 50 ML IVPB SCH (09:28)
[2025-01-10] MEDS: NA CHLORIDE 0.9% 1,000 ML IV SCH (09:34)
[2025-01-10] MEDS ORDERED: NA CHLORIDE 0.9% 1,000 ML IV SCH (11:26)
[2025-01-10 11:47] LABS: Sqamous Epithelial <5 /HPF (None Seen); Urine Crystals Unidentified Few /HPF (None Seen); Urine Culture Reflex Order REFLEXED; Urine Microscopic Reflex YN ORDER UMIC; Urine WBC Clump Occasional /HPF (None Seen); Urine Yeast (Budding) Occasional /HPF (None Seen)
[2025-01-10 13:25] VITALS: BP 122/55
--- NOTE | 2025-01-10 14:08 | P.DS ---
Admission Date: 01/09/25 Discharge Date: 01/10/25 Primary Care Provider: Dr. Fuchs Disposition: TRANSFER TO [facility] Discharge Condition: FAIR Reason for Admission: uretal stone Consultations: None Procedures: None Brief History of Present Illness: 69-year-old male with prior medical history of hypertension, prostate cancer presents to the ED via EMS after a fall at home due to weakness and back pain starting last night and worsening today. Patient endorses right back and right pelvic pain that waxes and wanes causing him to double over in pain, difficulty remaining comfortable in 1 position. Denies fevers, chills, N/V. Endorses feeling similar weakness prior to his admission last year November 2023 when he had a bladder infection. ER course: Patient arrived to ED via EMS. On arrival he appeared uncomfortable rating pain 4/10 to the back area. He stated he has chronic back pain that is worse now. Patient underwent laboratory and imaging workup. CT abdomen pelvis significant for 3 mm ureteral stone to the right side with mild hydronephrosis. Urinalysis was collected which currently shows no sign of infection or hematuria. Patient was given ketorolac IV push 30 mg x 1 While in the ED with inadequate pain relief. Hospital Course: 3 mm ureteral stone, right ureter hydroureteronephrosis, mild, right Flank pain Low urine output, concern for bladder outlet obstruction CT abdomen pelvis shows 3 mm ureteral stone and mild right hydroureteronephrosis Strain urine for all voids to collect stone Ceftriaxone 2 g IV daily x 5 days Normal saline at 100 mL/h for IV fluid hydration Tamsulosin 0.8 mg nightly - Multimodal pain control with [place] 10 mg Q 4 hours, Hydromorphone 1 mg Q 4 hours as needed for severe pain, will need to have vitals monitored to prevent hemodynamic intability/respiratory depression. Bladder scan completed showing > 999 Krishnamurthy catheter inserted with 350 mL liter output, patient to transfer with Krishnamurthy Hypotension Meet SIRS criteria Received 500 mL liter bolus overnight with good response Hypertension Continue metoprolol succinate 25 mg daily Continue equivalent half dosing of Maxide 37.5/25 Consider as needed antihypertensive meds as needed in anticipation of elevated blood pressures due to severe pain Hyperlipidemia Acute continue rosuvastatin 5 mg daily at bedtime Prostate cancer Followed by Dr. Reynolds Discussed with patient and Dr. Reynolds is out of the country and unavailable for consultation. Offered transfer and patient declined, opting to remain here for care. Vital Signs/Physical Exam: Temp Pulse Resp BP Pulse Ox 98.1 F 81 20 122/55 L 97 01/10/25 12:00 01/10/25 12:00 01/10/25 12:00 01/10/25 12:00 01/10/25 12:00 General: Alert, Oriented x3, Cooperative, Moderate distress, Obese (Morbidly) HEENT: Atraumatic, Normocephalic, Mucous membr. moist/pink Neck: Supple, JVD not distended, No Thyromegaly Respiratory: Normal air movement, Diminished, Crackles/rales Cardiovascular: Normal pulses, Regular rate/rhythm, Normal S1 S2, Edema Capillary refill: <2 Seconds Gastrointestinal: Normal bowel sounds, Soft and benign, Non-distended Musculoskeletal: No contractures, No erythema, No tenderness, No warmth, Swelling Integumentary: No rashes, No breakdown, No significant lesion, No erythema, No warmth Neurological: Normal gait, Normal speech, Normal tone, Sensation intact, Normal affect Urinary: Krishnamurthy catheter External genitalia: Deferred Rectal: Deferred Laboratory Data at Discharge: WBC 19.80 thou/uL (4.3-10.9) H 01/10/25 08:34 Hgb 13.1 g/dL (13.6-17.9) L D 01/10/25 08:34 Hct 39.3 % (39.6-49.0) L 01/10/25 08:34 Plt Count 163 thou/uL (152-406) D 01/10/25 08:34 PT 13.2 SECONDS (10-13.0) H 01/09/25 10:18 INR 1.17 01/09/25 10:18 Sodium 134 mEq/L (136-145) L 01/10/25 07:41 Potassium 3.8 mEq/L (3.5-5.1) 01/10/25 07:41 BUN 37 mg/dL (7-18) H 01/10/25 07:41 Creatinine 2.58 mg/dL (0.70-1.30) H 01/10/25 07:41 Glucose 127 mg/dL (74-106) H 01/10/25 07:41 Magnesium 1.7 mg/dL (1.6-2.4) 01/09/25 10:18 Total Bilirubin 1.2 mg/dL (0.2-1.0) H 01/10/25 07:41 AST 58 U/L (15-37) H 01/10/25 07:41 ALT 38 U/L (16-61) 01/10/25 07:41 Alkaline Phosphatase 52 U/L (45-117) 01/10/25 07:41 Home Medications: Rosuvastatin [Crestor*] 5 mg PO BEDTIME 11/22/23 L.acidoph,Paracasei, B.lactis [Probiotic] 1 cap PO DAILY 01/09/25 Tamsulosin HCl 2 cap PO BEDTIME 01/09/25 Enoxaparin Sodium [Lovenox 40 MG INJ*] 40 mg SQ DAILY syr 01/10/25 Hydrocodone 10/APAP 325 [[place] 10/325*] 1 tab PO Q6H PRN tab 01/10/25 Hydromorphone [Dilaudid*] 1 mg IV Q4H PRN ml 01/10/25 Ondansetron [Zofran*] 4 mg IV Q8H PRN vial 01/10/25 Physician Discharge Instructions: You will be transported [facility] for continuation of care. Diet: AHA Activity: Ad enrrique Followup: Gatito Fuchs MD [Primary Care Provider] - Time spent managing pt's care (in minutes): 67
== END 2025-01-10 16:00 | disposition short-term general hospital (02) | DRG 694 ==
LOC: ER 09:42 → ERHOLD 15:44 → 4TH 17:13
PROVIDERS: ADMIT Hospitalist; ATTEND Hospitalist
PROC: 0T9B70Z Drainage of Bladder with Drainage Device, Via Natural or Artificial Opening (ICD-10-PCS; principal; 2025-01-10)
DX: N13.30 Unspecified hydronephrosis (principal); Z68.41 Body mass index [BMI] 40.0-44.9, adult; N20.1 Calculus of ureter; E66.01 Morbid (severe) obesity due to excess calories; E86.0 Dehydration; M54.9 Dorsalgia, unspecified; E78.5 Hyperlipidemia, unspecified; I95.9 Hypotension, unspecified; I10 Essential (primary) hypertension; C61 Malignant neoplasm of prostate; F17.210 Nicotine dependence, cigarettes, uncomplicated; R10.2 Pelvic and perineal pain; Z88.5 Allergy status to narcotic agent; Z79.899 Other long term (current) drug therapy; W18.30XA Fall on same level, unspecified, initial encounter; Y93.9 Activity, unspecified; Y92.019 Unspecified place in single-family (private) house as the place of occurrence of the external cause; Y99.9 Unspecified external cause status
CPT/HCPCS: 36415; 71250; 74176; 80048; 80053; 80076; 81001; 83605; 83735; 83880; 84484; 85025; 85610; 87040; 87077; 87086; 87088; 87186; 87205; 93005; 96374; 99285; J0696; J1171; J1650; J1885; J2405; J7030; J7040